=== PATIENT | female | born 1975 | race Caucasian/White ===

== ENCOUNTER 2017-01-20 21:17 | Emergency (ER) | payer BC ==
[2017-01-20 21:44] VITALS: BP 130/84; PULSE 108; RESP 20; TEMP 98.4
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
--- NOTE | 2017-01-20 23:33 | XR ---
EXAM: XR Left Hand Complete, 3 or More Views CLINICAL HISTORY: Reason: Pain TECHNIQUE: Frontal, lateral and oblique views of the left hand. COMPARISON: No relevant prior studies available. FINDINGS: Bones/joints: No acute fracture or malalignment. Soft tissues: Unremarkable. No radiopaque foreign body. IMPRESSION: No acute fracture or malalignment.
--- NOTE | 2017-01-20 23:34 | XR ---
EXAM: XR Left Wrist Complete, 3 or More Views CLINICAL HISTORY: Reason: Pain TECHNIQUE: Frontal, lateral and oblique views of the left wrist. COMPARISON: No relevant prior studies available. FINDINGS: Bones/joints: No acute fracture or malalignment. Soft tissues: Unremarkable. No radiopaque foreign body. IMPRESSION: No acute fracture or malalignment.
== END 2017-01-20 23:50 | disposition home or self-care (01) ==
LOC: EC 21:17
DX: S63.8X2A Sprain of other part of left wrist and hand, initial encounter (principal); J45.909 Unspecified asthma, uncomplicated; F17.200 Nicotine dependence, unspecified, uncomplicated; Z79.899 Other long term (current) drug therapy; Z79.51 Long term (current) use of inhaled steroids; W51.XXXA Accidental striking against or bumped into by another person, initial encounter
CPT/HCPCS: 99283

== ENCOUNTER 2018-10-10 22:42 | Emergency (ER) | payer BC ==
[2018-10-10 22:51] VITALS: RESP 18
[2018-10-10 23:49] LABS: Basophils # (A) 0.1 k/uL (0-0.2); Basophils % (A) 0 %; Eosinophils # (A) 0.4 k/uL (0-0.7); Eosinophils % (A) 3 %; HGB 17.9 gm/dL (11.4-16.0); Lymphocytes # (A) 2.3 k/uL (1.0-4.8); Lymphocytes % (A) 15 %; MCH 31.3 pg (25.0-35.0); MCHC 31.8 g/dL (31.0-37.0); MCV 98.4 fL (80.0-100.0); Mean Platelet Volume 6.9; Monocytes # (A) 0.8 k/uL (0-1.0); Monocytes % (A) 5 %; Neutrophils # (A) 11.3 k/uL (1.3-7.7); Neutrophils % (A) 76 %; Platelet Count 248 k/uL (150-450); RBC 5.71 m/uL (3.80-5.40); RDW 13.8 % (11.5-15.5); WBC 14.9 k/uL (3.8-10.6)
[2018-10-10 23:51] LABS: HCT 56.2 % (34.0-46.0)
--- NOTE | 2018-10-10 23:52 | ED ---
Chest Pain HPI - General Chief Complaint: Chest Pain Stated Complaint: Chest Pain, Numbness in Fingers Time Seen by Provider: 10/10/18 22:53 Source: patient, RN notes reviewed Mode of arrival: wheelchair Limitations: no limitations - History of Present Illness Initial Comments: This is a 43-year-old female with a history of asthma who states she has had episodes of left-sided chest pain it feels like a pinching sensation. This is been going on for about a week. It does come on it since about 3-410 severity. She states she cannot do anything to reproduce it no coughing sneezing bending stretching overhead work. He does state she is been having some difficulty with asthma recently she is a smoker about one pack a day she is trying to get off cigarettes. She has had some increased cough no phlegm production no fevers chills or sweats is reported. She currently is asymptomatic. Also of note the patient recently had a phlebotomy done for which she describes as having too much blood. This is been going tenderness occurred. MD Complaint: chest pain - Related Data Home Medications Medication Instructions Recorded Confirmed Albuterol Sulfate [Proair Hfa] 2 puff INHALATION RT-Q6H 10/10/18 10/10/18 Fluticasone/Vilanterol [Breo 1 puff INHALATION RT-DAILY 10/10/18 10/10/18 Ellipta 200-25 Mcg INH] cloNIDine HCL 0.45 mg PO HS 10/10/18 10/10/18 Allergies Allergy/AdvReac Type Severity Reaction Status Date / Time azithromycin Allergy Rash/Hives Verified 10/10/18 23:13 codeine Allergy Dyspnea Verified 10/10/18 23:13 Review of Systems ROS Statement: Those systems with pertinent positive or pertinent negative responses have been documented in the HPI. ROS Other: All systems not noted in ROS Statement are negative. EKG Findings - EKG Results: EKG: interpreted by [facility], sinus rhythm (Sinus tachycardia rate 108. Interval 144 QRS duration 82 QT since QTC 352/[address]-T wave changes are seen.) Past Medical History Past Medical History: Asthma, Blood Disorder Additional Past Medical History / Comment(s): TMJ, VARICOSE VEINS, CONSTIPATION History of Any Multi-Drug Resistant Organisms: None Reported Past Surgical History: Appendectomy, Cholecystectomy, Uterine Ablation Additional Past Surgical History / Comment(s): GOLDEN Past Anesthesia/Blood Transfusion Reactions: No Reported Reaction, Motion Sickness Additional Past Anesthesia/Blood Transfusion Reaction / Comment(s): HAS TMJ Past Psychological History: Anxiety, Depression Smoking Status: Current every day smoker Past Alcohol Use History: None Reported Past Drug Use History: None Reported - Past Family History Mother Family Medical History: Pulmonary Embolus General Exam - General Exam Comments Initial Comments: This is a well-developed well-nourished awake alert oriented 3 female Limitations: no limitations General appearance: alert Head exam: Present: atraumatic, normocephalic, normal inspection Eye exam: Present: normal appearance, PERRL, EOMI. Absent: scleral icterus, conjunctival injection, periorbital swelling ENT exam: Present: normal exam, mucous membranes moist Neck exam: Present: normal inspection, full ROM, other (No stridor JVD or bruit s.). Absent: tenderness, meningismus, lymphadenopathy Respiratory exam: Present: normal lung sounds bilaterally, chest wall tenderness (Reproducible tenderness palpation along the left upper costal chondral margin no step-off or crepitation.). Absent: respiratory distress, wheezes, rales, rhonchi, stridor Cardiovascular Exam: Present: regular rate, normal rhythm, normal heart sounds. Absent: systolic murmur, diastolic murmur, rubs, gallop, clicks GI/Abdominal exam: Present: soft, normal bowel sounds. Absent: distended, tenderness, guarding, rebound, rigid Extremities exam: Present: normal inspection, full ROM, normal capillary refill. Absent: tenderness, pedal edema, joint swelling, calf tenderness Back exam: Present: normal inspection Neurological exam: Present: alert, oriented X3, CN II-XII intact Psychiatric exam: Present: normal affect, normal mood Skin exam: Present: warm, dry, intact, normal color. Absent: rash Course Vital Signs 10/10/18 22:48 Temperature 98.4 F Pulse Rate 116 H Respiratory 18 Rate Blood Pressure 134/85 O2 Sat by Pulse 97 Oximetry Procedures - Smoking Cessation Time Spent Discussing Smoking Cessation w/Patient (Minutes): 3 Patient Acknowledges Need for Cessation: Yes Chest Pain MDM - MDM I did review the imaging and report no acute findings. Patient is feeling improved after IV Toradol. We did a long discussion regarding the findings the presentation is consistent with costochondritis also there is evidence of dehydration with hemoconcentration and we did discuss increasing her oral fluid consumption. She will follow-up with her doctor next week for reevaluation of the hemoglobin level. Disposition Clinical Impression: Costalchondritis, Dehydration, Smoking Disposition: HOME SELF-CARE Condition: Good Instructions (If sedation given, give patient instructions): Costochondritis (ED), How to Stop Smoking (ED) Additional Instructions: Increase oral fluid consumption and use [id number] Advil or Aleve as we discussed for pain. Is patient prescribed a controlled substance at d/c from ED?: No Referrals: Gifty Lomeli DO [Primary Care Provider] - 1-2 days
[2018-10-10 23:59] LABS: ALT 27 U/L (9-52); AST 20 U/L (14-36); Albumin 3.8 g/dL (3.5-5.0); Alkaline Phosphatase 71 U/L (38-126); Anion Gap 7 mmol/L; Blood Urea Nitrogen 18 mg/dL (7-17); Calcium 9.1 mg/dL (8.4-10.2); Carbon Dioxide 29 mmol/L (22-30); Chloride 104 mmol/L (98-107); Glucose 109 mg/dL (74-99); Magnesium 1.9 mg/dL (1.6-2.3); Potassium 4.4 mmol/L (3.5-5.1); Sodium 140 mmol/L (137-145); Total Bilirubin 0.4 mg/dL (0.2-1.3); Total Protein 7.1 g/dL (6.3-8.2)
--- NOTE | 2018-10-11 00:04 | XR ---
EXAM: XR Chest, 2 Views CLINICAL HISTORY: ITS.REASON XR Reason: Chest Pain TECHNIQUE: Frontal and lateral views of the chest. COMPARISON: No relevant prior studies available. FINDINGS: Lungs: No consolidation or mass. Pleural space: No effusion. Heart: No cardiomegaly. Mediastinum: Unremarkable. Bones/joints: No acute findings. IMPRESSION: No acute cardiopulmonary process.
[2018-10-11 00:06] LABS: D-Dimer 0.47 mg/L FEU (<0.60); Partial Thromboplastin Time 27.8 sec (22.0-30.0); Prothrombin Time 10.5 sec (9.0-12.0)
[2018-10-11] MEDS ORDERED: KETOROLAC 30 MG/ML 1 ML VIAL IVP STA (00:38)
[2018-10-11 01:21] VITALS: BP 138/80; PULSE 102; TEMP 98
== END 2018-10-11 01:21 | disposition home or self-care (01) ==
LOC: EC 22:42
DX: M94.0 Chondrocostal junction syndrome [Tietze] (principal); E86.0 Dehydration; R05 Cough; R20.0 Anesthesia of skin; J45.909 Unspecified asthma, uncomplicated; F17.210 Nicotine dependence, cigarettes, uncomplicated; Z71.6 Tobacco abuse counseling; Z79.51 Long term (current) use of inhaled steroids; Z79.899 Other long term (current) drug therapy; Z88.1 Allergy status to other antibiotic agents; Z88.5 Allergy status to narcotic agent
CPT/HCPCS: 36415; 93005; 85379; 83880; 80053; 83735; 84484; 85025; 85610; 85730; 71046; 99285; 99406; 96374; J1885

== ENCOUNTER 2019-10-21 06:09 | Emergency (ER) | payer BC ==
[2019-10-21 06:16] VITALS: RESP 18
[2019-10-21] MEDS ORDERED: SODIUM CHLORIDE 0.9% 500 ML 500 ML IV STA (06:29)
--- NOTE | 2019-10-21 06:42 | ED ---
Chest Pain HPI - General Chief Complaint: Chest Pain Stated Complaint: flank pain Time Seen by Provider: 10/21/19 06:18 Source: patient, RN notes reviewed Mode of arrival: ambulatory Limitations: no limitations - History of Present Illness Initial Comments: This is a 44-year-old female presents emergency Department with chief complaint right-sided chest pain. Patient states it started the other day sudden onset of pain. She states she has pain with deep inspiration no shortness of breath. Patient states pain radiates from her right lateral rib cage to her right breast. Patient has no history of PE or DVT. Patient states that she was told her blood counts are usually very high and she comes in for routine blood draws to help with this. Patient states she has not done in a while. Patient denies any associated abdominal pain including nausea, vomiting, constipation, diarrhea or dysuria. Patient's had no leg pain or leg swelling. She does admit that she traveled in August and also had associated illness at that time. - Related Data Home Medications Medication Instructions Recorded Confirmed Albuterol Sulfate [Proair Hfa] 2 puff INHALATION RT-Q6H 10/10/18 10/21/19 Fluticasone/Vilanterol [Breo 1 puff INHALATION RT-DAILY 10/10/18 10/21/19 Ellipta 200-25 Mcg INH] cloNIDine HCL 0.45 mg PO HS 10/10/18 10/21/19 Previous Rx's Medication Instructions Recorded Levofloxacin [Levaquin] 500 mg PO DAILY #10 tab 10/21/19 Allergies Allergy/AdvReac Type Severity Reaction Status Date / Time azithromycin Allergy Rash/Hives Verified 10/21/19 06:16 codeine Allergy Dyspnea Verified 10/21/19 06:16 Review of Systems ROS Statement: Those systems with pertinent positive or pertinent negative responses have been documented in the HPI. ROS Other: All systems not noted in ROS Statement are negative. EKG Findings - EKG Comments: EKG Findings:: EKG performed at 6:31 sinus tachycardia rate of 112. 138 QRS 86 QT/QTC 3:30/455 Past Medical History Past Medical History: Asthma, Blood Disorder Additional Past Medical History / Comment(s): TMJ, VARICOSE VEINS, CONSTIPATION History of Any Multi-Drug Resistant Organisms: None Reported Past Surgical History: Appendectomy, Cholecystectomy, Uterine Ablation Additional Past Surgical History / Comment(s): NOVASURE Past Anesthesia/Blood Transfusion Reactions: No Reported Reaction, Motion Sickness Additional Past Anesthesia/Blood Transfusion Reaction / Comment(s): HAS TMJ Past Psychological History: No Psychological Hx Reported Smoking Status: Current every day smoker Past Alcohol Use History: None Reported Past Drug Use History: None Reported - Past Family History Mother Family Medical History: Pulmonary Embolus General Exam Limitations: no limitations, physical limitation General appearance: alert, in no apparent distress Head exam: Present: atraumatic, normocephalic, normal inspection Eye exam: Present: normal appearance, PERRL, EOMI. Absent: scleral icterus, conjunctival injection, periorbital swelling ENT exam: Present: normal exam, normal oropharynx, mucous membranes moist Neck exam: Present: normal inspection, full ROM. Absent: tenderness, meningismus, lymphadenopathy Respiratory exam: Present: normal lung sounds bilaterally. Absent: respiratory distress, wheezes, rales, rhonchi, stridor, chest wall tenderness Cardiovascular Exam: Present: normal rhythm, tachycardia, normal heart sounds. Absent: systolic murmur, diastolic murmur, rubs, gallop, clicks GI/Abdominal exam: Present: soft, normal bowel sounds. Absent: distended, tend erness, guarding, rebound, rigid Neurological exam: Present: alert, oriented X3, CN II-XII intact Skin exam: Present: warm, dry, intact, normal color. Absent: rash Course Vital Signs 10/21/19 10/21/19 10/21/19 06:10 07:37 08:39 Temperature 98.5 F 98.3 F Pulse Rate 120 H 106 H 108 H Respiratory 18 18 18 Rate Blood Pressure 130/92 126/93 127/86 O2 Sat by Pulse 94 L 94 L 94 L Oximetry Chest Pain MDM - [facility] Patient lab work was reviewed which showed elevated WBC, HGB and HCT consistent with her known underlying disorder. Patient CT shows no evidence of PE though there is evidence of pleural effusion, infiltrate posterior antibiotics. Patient will have follow-up with her PCP. Return parameters were discussed. Disposition Clinical Impression: Pleurisy, Pneumonia Disposition: HOME SELF-CARE Condition: Stable Instructions (If sedation given, give patient instructions): Pneumonia (ED) Additional Instructions: Please return to the Emergency Department if symptoms worsen or any other concerns. Prescriptions: Levofloxacin [Levaquin] 500 mg PO DAILY #10 tab Is patient prescribed a controlled substance at d/c from ED?: No Referrals: Gifty Lomeli DO [Primary Care Provider] - 1-2 days Time of Disposition: 08:42
[2019-10-21 07:28] LABS: ALT 22 U/L (4-34); AST 22 U/L (14-36); African American GFR (CKD) >90 (>60 ml/min/1.73 sqM); Albumin 3.8 g/dL (3.5-5.0); Alkaline Phosphatase 65 U/L (38-126); Anion Gap 8 mmol/L; Blood Urea Nitrogen 18 mg/dL (7-17); Calcium 8.7 mg/dL (8.4-10.2); Carbon Dioxide 25 mmol/L (22-30); Chloride 105 mmol/L (98-107); Glucose 113 mg/dL (74-99); Magnesium 2.1 mg/dL (1.6-2.3); Non-African American GFR(CKD) >90 (>60 ml/min/1.73 sqM); Potassium 4.5 mmol/L (3.5-5.1); Sodium 138 mmol/L (137-145); Total Bilirubin 0.4 mg/dL (0.2-1.3); Total Protein 7.3 g/dL (6.3-8.2)
[2019-10-21 07:35] LABS: Basophils # (A) 0.1 k/uL (0-0.2); Basophils % (A) 0 %; Eosinophils # (A) 0.8 k/uL (0-0.7); Eosinophils % (A) 5 %; HGB 18.3 gm/dL (11.4-16.0); Lymphocytes # (A) 1.9 k/uL (1.0-4.8); Lymphocytes % (A) 12 %; MCH 31.7 pg (25.0-35.0); MCHC 32.4 g/dL (31.0-37.0); MCV 97.8 fL (80.0-100.0); Mean Platelet Volume 8.3; Monocytes % (A) 6 %; Neutrophils # (A) 11.7 k/uL (1.3-7.7); Neutrophils % (A) 74 %; Platelet Count 288 k/uL (150-450); RBC 5.78 m/uL (3.80-5.40); RDW 13.6 % (11.5-15.5); WBC 15.9 k/uL (3.8-10.6)
[2019-10-21 07:36] LABS: HCT 56.5 % (34.0-46.0)
[2019-10-21 07:37] VITALS: TEMP 98.3
--- NOTE | 2019-10-21 08:28 | XR ---
EXAMINATION TYPE: XR chest 2V DATE OF EXAM: 10/21/2019 COMPARISON: 10/11/2018 HISTORY: 44-year-old female with chest pain TECHNIQUE: PA and lateral views FINDINGS: Heart upper limits of normal in size. Trace right pleural effusion with right basilar opacity particu larly on the lateral view. Upper and mid lungs appear relatively clear. IMPRESSION: Small right pleural effusion with adjacent atelectasis and/or consolidation. Correlate to exclude mil d CHF as an etiology.
--- NOTE | 2019-10-21 08:28 | CT ---
EXAMINATION TYPE: CT chest angio for PE DATE OF EXAM: 10/21/2019 COMPARISON: Radiograph same day HISTORY: 44-year-old female Chest pain TECHNIQUE: Contiguous axial scanning of the chest performed with IV Contrast, patient injected with 1 00 mL of Isovue 370. Coronal/sagittal MIP reconstructions performed. CT DLP: 852.5 mGycm Automated exposure control for dose reduction was used. FINDINGS: The heart is normal size with trace anterior pericardial fluid. No flattening of the interventricular septum reflux of contrast into the hepatic veins. Aorta normal caliber with conventional arch vessel branching anatomy. Mildly enlarged right tracheobronchial angle lymph node at 1.2 cm. Additional scattered nonenlarged lymph nodes are present in the mediastinum. Borderline sized 1.0 cm and the right hilum. Borderline sized 6 mm right retrocrural lymph node. Suboptimal opacification of the pulmonary arterial system but without any definite pulmonary embolus. Mild diffuse bronchial wall thickening. There is a small right pleural effusion remain right basilar atelectasis and focal opacity. Visualized upper abdomen shows no gross abnormality. Bones: Mild anterior endplate spondylosis mid to lower thoracic spine. IMPRESSION: 1. SLIGHTLY SUBOPTIMAL OPACIFICATION OF THE PULMONARY ARTERIAL SYSTEM BUT WITHOUT EVIDENCE FOR PULMON KRISTA EMBOLUS. 2. SMALL RIGHT PLEURAL EFFUSION WITH ADJACENT ATELECTASIS AND/OR INFILTRATE. CORRELATE CLINICALLY TO EXCLUDE UNDERLYING PNEUMONIA HERE. 3. MILD DIFFUSE BRONCHIAL WALL THICKENING, POSSIBLE BRONCHITIS OR ASTHMA. CORRELATE TO EXCLUDE MILD F LUID OVERLOAD STATE. 4. SCATTERED BORDERLINE SIZED AND MILDLY ENLARGED MEDIASTINAL AND RIGHT HILAR LYMPH NODES, LIKELY CHAD CTIVE. [address] MONTH FOLLOW-UP CT CHEST RECOMMENDED TO REASSESS.
[2019-10-21 08:40] VITALS: BP 127/86; PULSE 108
[2019-10-21] MEDS ORDERED: cefTRIAXone IN SWFI 1,000 MG/10 ML SYRINGE IVP STA (08:42)
[2019-10-21 09:05] LABS: Partial Thromboplastin Time 25.6 sec (22.0-30.0); Prothrombin Time 10.3 sec (9.0-12.0)
[2019-10-21 09:07] LABS: D-Dimer 4.83 mg/L FEU (<0.60)
== END 2019-10-21 09:08 | disposition home or self-care (01) ==
LOC: EC 06:09
DX: J18.9 Pneumonia, unspecified organism (principal); R09.1 Pleurisy; J45.909 Unspecified asthma, uncomplicated; F17.200 Nicotine dependence, unspecified, uncomplicated; Z79.899 Other long term (current) drug therapy; Z79.51 Long term (current) use of inhaled steroids; Z88.1 Allergy status to other antibiotic agents; Z88.5 Allergy status to narcotic agent
CPT/HCPCS: 36415; 93005; 85379; 83880; 80053; 83690; 83735; 84484; 85025; 85610; 85730; 71046; 71275; 99285; 96374; 96361; J0696; Q9967

== ENCOUNTER 2019-12-29 04:34 | Inpatient (IN) | payer BC ==
--- NOTE | 2019-12-29 05:03 | ED ---
SOB HPI - General Source: patient Mode of arrival: wheelchair Limitations: no limitations - History of Present Illness MD Complaint: shortness of breath -: days(s) Severity scale (1-10): 0 Consistency: constant Improves With: nothing Worsens With: nothing Context: recent URI Associated Symptoms: lower abdominal swelling Treatments Prior to Arrival: none <Stuart Yip - Last Filed: 12/29/19 07:09> <Edwin Orozco - Last Filed: 12/29/19 08:58> - General Chief Complaint: Shortness of Breath Stated Complaint: SOB, Swelling in feet Time Seen by Provider: 12/29/19 04:53 - History of Present Illness Initial Comments: This patient is 44-year-old woman presenting to have evaluation for shortness of breath and bilateral lower extremity edema. The patient states that this had s tarted a little over 2 months ago. She had been seen here at that time as she was having some right-sided pleuritic chest pain. The patient had been evaluated and there was concern that she may have had covid infection. Patient states she had performed self isolation, and subsequently informed that her test result was negative. Patient states that the lower extremity swelling never really resolved and that the shortness of breath has continued. She is not having fever or chills. No cough. No change in urination or bowel movements. (Stuart Yip) - Related Data Home Medications Medication Instructions Recorded Confirmed Albuterol Sulfate [Proair Hfa] 2 puff INHALATION RT-Q6H 10/10/18 12/29/19 Fluticasone/Vilanterol [Breo 1 puff INHALATION RT-DAILY 10/10/18 12/29/19 Ellipta 200-25 Mcg INH] cloNIDine HCL 0.6 mg PO HS 10/10/18 12/29/19 Albuterol Nebulized [Ventolin 2.5 mg INHALATION RT-Q6H PRN 12/29/19 12/29/19 Nebulized] Allergies Allergy/AdvReac Type Severity Reaction Status Date / Time azithromycin Allergy Rash/Hives Verified 12/29/19 08:08 codeine Allergy Dyspnea Verified 12/29/19 08:08 Review of Systems ROS Other: All systems not noted in ROS Statement are negative. Constitutional: Denies: fever, chills Respiratory: Reports: dyspnea. Denies: cough, wheezes, hemoptysis Cardiovascular: Reports: edema. Denies: chest pain, palpitations, orthopnea, syncope Gastrointestinal: Denies: abdominal pain, nausea, vomiting, melena, hematochezia Musculoskeletal: Denies: back pain Skin: Denies: rash Neurological: Denies: headache, weakness, numbness <Stuart Yip - Last Filed: 12/29/19 07:09> ROS Other: All systems not noted in ROS Statement are negative. <Edwin Orozco - Last Filed: 12/29/19 08:58> ROS Statement: Those systems with pertinent positive or pertinent negative responses have been documented in the HPI. Past Medical History Past Medical History: Asthma, Blood Disorder Additional Past Medical History / Comment(s): TMJ, VARICOSE VEINS, CONSTIPATION History of Any Multi-Drug Resistant Organisms: None Reported Past Surgical History: Appendectomy, Cholecystectomy, Uterine Ablation Additional Past Surgical History / Comment(s): NOVASURE Past Anesthesia/Blood Transfusion Reactions: No Reported Reaction, Motion Sickness Additional Past Anesthesia/Blood Transfusion Reaction / Comment(s): HAS TMJ Past Psychological History: No Psychological Hx Reported Smoking Status: Current every day smoker Past Alcohol Use History: None Reported Past Drug Use History: None Reported - Past Family History Mother Family Medical History: Pulmonary Embolus <Stuart Yip - Last Filed: 12/29/19 07:09> General Exam Limitations: no limitations General appearance: alert, in no apparent distress Head exam: Present: atraumatic, normocephalic Eye exam: Present: normal appearance. Absent: scleral icterus, conjunctival injection Neck exam: Present: normal inspection Respiratory exam: Present: normal lung sounds bilaterally. Absent: respiratory distress, wheezes, rales, rhonchi, stridor Cardiovascular Exam: Present: normal rhythm, tachycardia, normal heart sounds. Absent: systolic murmur, diastolic murmur, rubs, gallop GI/Abdominal exam: Present: soft. Absent: distended, tenderness, guarding, rebound, rigid, mass Extremities exam: Present: normal inspection, normal capillary refill, pedal edema. Absent: calf tenderness Back exam: Present: normal inspection. Absent: CVA tenderness (R), CVA tenderness (L) Neurological exam: Present: alert Skin exam: Present: warm, dry, intact, normal color. Absent: rash <Stuart Yip - Last Filed: 12/29/19 07:09> Course Vital Signs 12/29/19 12/29/19 12/29/19 04:41 04:56 05:01 Temperature 98.8 F Pulse Rate 116 H Respiratory 22 Rate Blood Pressure 131/73 O2 Sat by Pulse 88 L 91 L 94 L Oximetry 12/29/19 12/29/19 07:03 07:44 Temperature Pulse Rate 96 Respiratory 16 Rate Blood Pressure 134/99 140/96 O2 Sat by Pulse 96 Oximetry Medical Decision Making - Lab Data Result diagrams: 12/29/19 05:10 12/29/19 05:10 - EKG Data -: EKG Interpreted by Nd EKG shows normal: sinus rhythm, axis (Normal), intervals (Normal), QRS complexes (Normal), ST-T waves (Normal) Rate: tachycardia (Rate 112 bpm) <Stuart Yip - Last Filed: 12/29/19 07:09> - Lab Data Result diagrams: 12/29/19 05:10 12/29/19 05:10 - Radiology Data Radiology results: image reviewed (Two-view chest x-ray shows right-sided effusion. No infiltrate/atelectasis. CT angios chest shows no pulmonary embolism. Stable [id number] right pleural effusion with atelectasis. trace pulmonary edema.) <Edwin Orozco - Last Filed: 12/29/19 08:58> - Medical Decision Making Patient reevaluated by myself, Dr. Orozco. Patient resting comfortably in bed. Patient updated on results and plan. Case was discussed in detail with Dr. Bello, who will admit covered for Dr. Lomeli. He does agree with pulmonary consult. (Edwin Orozco) - Lab Data Lab Results 12/29/19 12/29/19 12/29/19 Range/Units 05:10 05:10 05:10 WBC 14.4 H (3.8-10.6) k/uL RBC 5.10 (3.80-5.40) m/uL Hgb 16.3 H (11.4-16.0) gm/dL Hct 50.5 H (34.0-46.0) % MCV 98.9 (80.0-100.0) fL MCH 31.9 (25.0-35.0) pg MCHC 32.3 (31.0-37.0) g/dL RDW 14.7 (11.5-15.5) % Plt Count 206 (150-450) k/uL Neutrophils % 82 % Lymphocytes % 9 % Monocytes % 6 % Eosinophils % 2 % Basophils % 0 % Neutrophils # 11.7 H (1.3-7.7) k/uL Lymphocytes # 1.3 (1.0-4.8) k/uL Monocytes # 0.8 (0-1.0) k/uL Eosinophils # 0.3 (0-0.7) k/uL Basophils # 0.1 (0-0.2) k/uL Hypochromasia Moderate PT 11.3 (9.0-12.0) sec INR 1.1 (<1.2) APTT 27.4 (22.0-30.0) sec D-Dimer 1.41 H (<0.60) mg/L FEU Sodium 138 (137-145) mmol/L Potassium 4.2 (3.5-5.1) mmol/L Chloride 102 (98-107) mmol/L Carbon Dioxide 29 (22-30) mmol/L Anion Gap 7 mmol/L BUN 14 (7-17) mg/dL Creatinine 0.63 (0.52-1.04) mg/dL Est GFR (CKD-EPI)AfAm >90 (>60 ml/min/1.73 sqM) Est GFR (CKD-EPI)NonAf >90 (>60 ml/min/1.73 sqM) Glucose 145 H (74-99) mg/dL Calcium 8.7 (8.4-10.2) mg/dL Total Bilirubin 0.7 (0.2-1.3) mg/dL AST 27 (14-36) U/L ALT 19 (4-34) U/L Alkaline Phosphatase 60 (38-126) U/L Troponin I (0.000-0.034) ng/mL NT-Pro-B Natriuret Pep pg/mL Total Protein 7.2 (6.3-8.2) g/dL Albumin 3.8 (3.5-5.0) g/dL 12/29/19 12/29/19 Range/Units 05:10 06:14 WBC (3.8-10.6) k/uL RBC (3.80-5.40) m/uL Hgb (11.4-16.0) gm/dL Hct (34.0-46.0) % MCV (80.0-100.0) fL MCH (25.0-35.0) pg MCHC (31.0-37.0) g/dL RDW (11.5-15.5) % Plt Count (150-450) k/uL Neutrophils % % Lymphocytes % % Monocytes % % Eosinophils % % Basophils % % Neutrophils # (1.3-7.7) k/uL Lymphocytes # (1.0-4.8) k/uL Monocytes # (0-1.0) k/uL Eosinophils # (0-0.7) k/uL Basophils # (0-0.2) k/uL Hypochromasia PT (9.0-12.0) sec INR (<1.2) APTT (22.0-30.0) sec D-Dimer (<0.60) mg/L FEU Sodium (137-145) mmol/L Potassium (3.5-5.1) mmol/L Chloride (98-107) mmol/L Carbon Dioxide (22-30) mmol/L Anion Gap mmol/L BUN (7-17) mg/dL Creatinine (0.52-1.04) mg/dL Est GFR (CKD-EPI)AfAm (>60 ml/min/1.73 sqM) Est GFR (CKD-EPI)NonAf (>60 ml/min/1.73 sqM) Glucose (74-99) mg/dL Calcium (8.4-10.2) mg/dL Total Bilirubin (0.2-1.3) mg/dL AST (14-36) U/L ALT (4-34) U/L Alkaline Phosphatase (38-126) U/L Troponin I <0.012 (0.000-0.034) ng/mL NT-Pro-B Natriuret Pep 151 pg/mL Total Protein (6.3-8.2) g/dL Albumin (3.5-5.0) g/dL Disposition <Stuart Yip - Last Filed: 12/29/19 07:09> Is patient prescribed a controlled substance at d/c from ED?: No Decision Time: 08:58 <Edwin Orozco - Last Filed: 12/29/19 08:58> Clinical Impression: Pleural effusion, Dyspnea Disposition: ADMITTED IP TO THIS HOSP Referrals: Gifty Lomeli DO [Primary Care Provider] - 1-2 days
--- NOTE | 2019-12-29 05:28 | XR ---
EXAMINATION TYPE: XR chest 2V DATE OF EXAM: 12/29/2019 COMPARISON: 10/21/2019 HISTORY: Chest pain TECHNIQUE: FINDINGS: There is blunting right costophrenic angle. Heart size is normal. There is no gross heart f ailure. There is some mild infiltrate and atelectasis right lung base. There are chest leads. IMPRESSION: There is increasing right pleural effusion and right lower lobe infiltrate and atelectasi s compared to last exam. No gross heart failure.
[2019-12-29 05:32] LABS: ALT 19 U/L (4-34); AST 27 U/L (14-36); African American GFR (CKD) >90 (>60 ml/min/1.73 sqM); Albumin 3.8 g/dL (3.5-5.0); Alkaline Phosphatase 60 U/L (38-126); Anion Gap 7 mmol/L; Blood Urea Nitrogen 14 mg/dL (7-17); Calcium 8.7 mg/dL (8.4-10.2); Carbon Dioxide 29 mmol/L (22-30); Chloride 102 mmol/L (98-107); Glucose 145 mg/dL (74-99); Non-African American GFR(CKD) >90 (>60 ml/min/1.73 sqM); Sodium 138 mmol/L (137-145); Total Bilirubin 0.7 mg/dL (0.2-1.3); Total Protein 7.2 g/dL (6.3-8.2)
[2019-12-29 05:34] LABS: Potassium 4.2 mmol/L (3.5-5.1)
[2019-12-29 05:44] LABS: Basophils # (A) 0.1 k/uL (0-0.2); Basophils % (A) 0 %; Eosinophils # (A) 0.3 k/uL (0-0.7); Eosinophils % (A) 2 %; HCT 50.5 % (34.0-46.0); HGB 16.3 gm/dL (11.4-16.0); Hypochromasia Moderate; Lymphocytes # (A) 1.3 k/uL (1.0-4.8); Lymphocytes % (A) 9 %; MCH 31.9 pg (25.0-35.0); MCHC 32.3 g/dL (31.0-37.0); MCV 98.9 fL (80.0-100.0); Mean Platelet Volume 11.3; Monocytes # (A) 0.8 k/uL (0-1.0); Monocytes % (A) 6 %; Neutrophils # (A) 11.7 k/uL (1.3-7.7); Neutrophils % (A) 82 %; Platelet Count 206 k/uL (150-450); RDW 14.7 % (11.5-15.5); WBC 14.4 k/uL (3.8-10.6)
[2019-12-29 05:51] LABS: INR 1.1 (<1.2); Partial Thromboplastin Time 27.4 sec (22.0-30.0); Prothrombin Time 11.3 sec (9.0-12.0)
[2019-12-29 06:12] LABS: D-Dimer 1.41 mg/L FEU (<0.60)
--- NOTE | 2019-12-29 08:28 | CT ---
EXAM: CT Angiography Chest With Intravenous Contrast CLINICAL HISTORY: Dyspnea TECHNIQUE: Axial computed tomographic angiography images of the chest with intravenous contrast. CTDI is 24.2 mGy and DLP is 1016 mGy-cm. This CT exam was performed using one or more of the following dose reduction techniques: automated exposure control, adjustment of the mA and/or kV according to patient size, and/or use of iterative reconstruction technique. MIP reconstructed images were created and reviewed. COMPARISON: 10/21/19 FINDINGS: Pulmonary arteries: No pulmonary embolism. Aorta: No acute findings. No thoracic aortic aneurysm. Lungs: Mild atelectasis again seen in the right lower lobe. No definite airspace consolidation. There is minimal interstitial edema Pleural space: No evidence of pneumothorax. Again seen is a small to moderate-sized right pleural effusion, not significantly changed. Heart: Unremarkable. No cardiomegaly. No significant pericardial effusion. No evidence of RV dysfunction. Bones/joints: No acute fracture. No dislocation. Soft tissues: Unremarkable. Lymph nodes: Unremarkable. No enlarged lymph nodes. IMPRESSION: No evidence of pulmonary embolism. Stable small to moderate size right pleural effusion with right basilar atelectasis. Trace pulmonary edema.
[2019-12-29] MEDS ORDERED: FUROSEMIDE 10 MG/ML 4 ML VIAL IV STA (08:58)
[2019-12-29] MEDS ORDERED: NALOXONE 0.4 MG/ML 1 ML VIAL IV PRN (08:59)
[2019-12-29] MEDS: SODIUM CHLORIDE 0.9% 1,000 ML IV SCH (09:28)
--- NOTE | 2019-12-29 11:43 | ECHOF ---
Referral Reason:dyspnea MEASUREMENTS -------- HEIGHT: 162.6 cm WEIGHT: 139.3 kg BP: 140/96 RVIDd: 3.2 cm (< 3.3) IVSd: 1.2 cm (0.6 - 1.1) LVIDd: 5.7 cm (3.9 - 5.3) LVPWd: 1.5 cm (0.6 - 1.1) IVSs: 1.5 cm LVIDs: 4.6 cm LVPWs: 1.6 cm Ao Diam: 3.0 cm (2.0 - 3.7) LA Diam: 2.4 cm (2.7 - 3.8) MV E Vijay: 0.83 m/s MV DecT: 177 ms MV A Vijay: 0.80 m/s MV E/A Ratio: 1.03 RAP: 5.00 mmHg RVSP: 7.51 mmHg FINDINGS -------- This was a technically difficult study with suboptimal views. The left ventricle is mildly dilated. There is mild concentric left ventricular hypertrophy. Over all left ventricular systolic function is mild-moderately impaired with, an EF between 40 - 45 %. The right ventricle is normal in size. The left atrial size is normal. The right atrium was not well visualized. The aortic valve was not well visualized. The mitral valve was not well visualized. There is trace mitral regurgitation. The tricuspid valve appears structurally normal. Trace tricuspid regurgitation present. Right galina tricular systolic pressure is normal at < 35 mmHg. The pulmonic valve was not well visualized. The aortic root size is normal. IVC Not well visulized. Lumason used CONCLUSIONS -------- 1. This was a technically difficult study with suboptimal views. 2. The left ventricle is mildly dilated. 3. There is mild concentric left ventricular hypertrophy. 4. The right ventricle is normal in size. 5. The left atrial size is normal. 6. The right atrium was not well visualized. 7. Lumason used 8. The aortic valve was not well visualized. 9. The mitral valve was not well visualized. 10. There is trace mitral regurgitation. 11. The tricuspid valve appears structurally normal. 12. Trace tricuspid regurgitation present. 13. Right ventricular systolic pressure is normal at < 35 mmHg. 14. The pulmonic valve was not well visualized. 15. The aortic root size is normal. 16. IVC Not well visulized. ICT SECURITY SPECIALIST: Elvira Mckeon RDCS
[2019-12-29] MEDS ORDERED: ALBUTEROL NEBULIZED 2.5 MG/3 ML INHALATION PRN ×2 (13:42→14:57)
[2019-12-29] MEDS ORDERED: PNEUMOCOCCAL VACC-PNEUMOVAX 23 25 MCG/0.5 ML VIAL IM ONE (14:08)
--- NOTE | 2019-12-29 15:07 | US ---
EXAMINATION TYPE: US chest DATE OF EXAM: 12/29/2019 COMPARISON: NONE CLINICAL HISTORY: Markings for thoracentesis by pulmonary staff. TECHNIQUE: Targeted ultrasound of the posterior lower EXAM MEASUREMENTS: Right Pleural Effusion pocket size: 10.4 cm Right skin surface to fluid distance: 5.6 cm Left Pleural Effusion pocket size: 3.0 cm with possible loculations Left skin surface to fluid distance: 6.3 cm Morbidly obese patient. Right side marked for possible thoracentesis outside the dept. Left side not marked for possible thoracentesis outside the dept. Pulmonologists are able to review the images in the patient?s EMR. IMPRESSIONS: Small to moderate right and trace left pleural effusion with possible left-sided loculat ions.
--- NOTE | 2019-12-29 15:11 | P.CNPUL ---
History of Present Illness Consult date: 12/29/19 Reason for consult: dyspnea Chief complaint: Shortness of breath, lower extremity swelling, weight gain History of present illness: 44-year-old female patient of Dr. Gifty Lomeli with past medical history of chronic bronchial asthma, current smoker, morbid obesity, hypertension, and possibility of polycythemia vera or hemochromatosis requiring therapeutic phlebotomy, who presented to the emergency department on 12/29/2019 for evaluation of increasing shortness of breath, and significant bilateral lower extremity edema that started a little over 2 months ago, patient also complains of abdominal wall edema. Patient did come into the emergency department on 10/21/2019 with right-sided chest pain that was worsened with deep inspiration and no associated shortness of breath. CTA chest was obtained at that time showing no evidence of pulmonary embolism but did show small right pleural effusion with adjacent atelectasis and/or infiltrate, and mild diffuse bronchial wall thickening possible bronchitis, and scattered borderline sized and mildly enlarged mediastinal and right hilar lymph nodes, were likely reactive. Patient was diagnosed with pneumonia with pleurisy, was discharged home on oral Levaquin. Today's chest x-ray shows increasing right pleural effusion and right lower lobe infiltrate and atelectasis compared to last exam. CTA chest showed no evidence of pulmonary embolism, and stable small to moderate size right pleural effusion with right basilar atelectasis. EKG showed sinus tachycardia with a rate of 112 BPM. Patient was hypoxemic on presentation with pulse ox of 88% on room air, placed on supplemental oxygen, currently at 2 L with a pulse ox of 97%, blood pressure is 131/73, afebrile. Patient was given a dose of IV Lasix in the emergency department, echocardiogram was completed, showing [id number] impairment of the left ventricular systolic function and EF of 40-45%. Aortic and mitral valves were not well visualized, and there was trace mitral regurgitation, and right ventricular systolic pressure was less than 35 mmHg, IVC not well visualized. Lab work showed white blood cell count of 14.4, hemoglobin of 16.3, hematocrit of 50.5, d-dimer was 1.41, electro lites and renal profile were within normal limits, troponin was less than 0.012, LFTs were within normal limits, proBNP was 151. We were asked to see the patient in regards to bilateral pleural effusions. In addition patient has significant edema involving lower extremities and abdominal wall Review of Systems All systems: negative Constitutional: Denies chills, Denies fever Eyes: denies blurred vision, denies pain Ears, nose, mouth and throat: Denies headache, Denies sore throat Cardiovascular: Reports dyspnea on exertion, Reports leg edema, Denies chest pain, Denies shortness of breath Respiratory: Reports dyspnea, Denies cough Gastrointestinal: Denies abdominal pain, Denies diarrhea, Denies nausea, Denies vomiting Genitourinary: Denies dysuria, Denies hematuria Musculoskeletal: Denies myalgias Integumentary: Denies pruritus, Denies rash Neurological: Denies numbness, Denies weakness Psychiatric: Denies anxiety, Denies depression Endocrine: Reports weight change, Denies fatigue Past Medical History Past Medical History: Asthma, Blood Disorder, Pneumonia, Vascular Disorder Additional Past Medical History / Comment(s): 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 History of Any Multi-Drug Resistant Organisms: None Reported Past Surgical History: Appendectomy, Cholecystectomy, Hysterectomy, Uterine Ablation Additional Past Surgical History / Comment(s): NOVASURE Past Anesthesia/Blood Transfusion Reactions: Motion Sickness Additional Past Anesthesia/Blood Transfusion Reaction / Comment(s): HAS TMJ Smoking Status: Current every day smoker - Past Family History Mother Family Medical History: Pulmonary Embolus Additional Family Medical History / Comment(s): Mother of a PE at the age of 63 yrs. Father Family Medical History: Hypertension, Respiratory Disorder Additional Family Medical History / Comment(s): Father is an alcoholic. He had asbestos exposure/lungs affected. Medications and Allergies Home Medications Medication Instructions Recorded Confirmed Type Albuterol Sulfate [Proair Hfa] 2 puff INHALATION RT-Q6H 10/10/18 12/29/19 History Fluticasone/Vilanterol [Breo 1 puff INHALATION RT-DAILY 10/10/18 12/29/19 History Ellipta 200-25 Mcg INH] cloNIDine HCL 0.6 mg PO HS 10/10/18 12/29/19 History Albuterol Nebulized [Ventolin 2.5 mg INHALATION RT-Q6H PRN 12/29/19 12/29/19 History Nebulized] Allergies Allergy/AdvReac Type Severity Reaction Status Date / Time azithromycin Allergy Rash/Hives Verified 12/29/19 08:08 codeine Allergy Dyspnea Verified 12/29/19 08:08 Physical Exam Vitals: Vital Signs Temp Pulse Resp BP Pulse Ox 12/29/19 09:32 92 16 135/93 97 12/29/19 07:44 96 16 140/96 96 12/29/19 07:03 134/99 12/29/19 05:01 94 L 12/29/19 04:56 91 L 12/29/19 04:41 98.8 F 116 H 22 131/73 88 L Intake and Output 12/28/19 12/29/19 12/29/19 22:59 06:59 14:59 Other: Voiding Method Toilet Weight 139.253 kg 139.253 kg GENERAL EXAM: Alert, very pleasant, morbidly obese 44-year-old white female on 2 L of oxygen with pulse ox of 97% comfortable in no apparent distress. HEAD: Normocephalic/atraumatic. EYES: Normal reaction of pupils, equal size. Conjunctiva pink, sclera white. NOSE: Clear with pink turbinates. THROAT: No erythema or exudates. NECK: No masses, no JVD, no thyroid enlargement, no adenopathy. CHEST: No chest wall deformity. Symmetrical expansion. LUNGS: Equal air entry with diminished breath sounds at the bases, scattered wheezing CVS: Regular rate and rhythm, normal S1 and S2, no gallops, no murmurs, no rubs ABDOMEN: Soft, nontender. No hepatosplenomegaly, normal bowel sounds, no guarding or rigidity. EXTREMITIES: No clubbing, edema involving abdominal wall, and bilateral lower extremities, nonpitting, no cyanosis, 2+ pulses and upper and lower extremities. MUSCULOSKELETAL: Muscle strength and tone normal. SPINE: No scoliosis or deformity SKIN: No rashes CENTRAL NERVOUS SYSTEM: Alert and oriented -3. No focal deficits, tone is normal in all 4 extremities. PSYCHIATRIC: Alert and oriented -3. Appropriate affect. Intact judgment and insight. Results - Laboratory Findings CBC and BMP: 12/29/19 05:10 12/29/19 05:10 PT/INR, D-dimer PT 11.3 sec (9.0-12.0) 12/29/19 05:10 INR 1.1 (<1.2) 12/29/19 05:10 D-Dimer 1.41 mg/L FEU (<0.60) H 12/29/19 05:10 Abnormal lab findings: Abnormal Labs 12/29/19 12/29/19 12/29/19 05:10 05:10 05:10 WBC 14.4 H Hgb 16.3 H Hct 50.5 H Neutrophils # 11.7 H D-Dimer 1.41 H Glucose 145 H - Diagnostic Findings Chest x-ray: report reviewed, image reviewed CT scan - chest: report reviewed, image reviewed Additional studies: EKG reviewed Assessment and Plan Plan: Assessment: #1. Dyspnea, related to fluid volume overload, significant lower extremity edema and abdominal wall edema and bilateral pleural effusions, #2. Acute hypoxic respiratory failure related to bilateral pleural effusions #3. Cardiomyopathy, echocardiogram showed mild to moderate impairment of the LV function with EF of 40-45% #4. Possible history of polycythemia vera or hemochromatosis, requiring therapeutic phlebotomy every 2-3 months #5. History of chronic bronchial asthma, unspecified, and a component of COPD, the severity of which is not known at this time #6. Hypertension #7. Current every day smoker, smoked a pack and a half a day for 17 years #8. History of large rectocele and uterine prolapse, status post hysterectomy #9. Morbid obesity #10. Mildly elevated d-dimer, with CTA chest negative for pulmonary embolism Plan: Ultrasound of the chest has been ordered, and reviewed, showing bilateral pleural effusions, in addition patient has significant generalized edema involving abdominal wall, and lower extremities, and she needs systemic diuretic s. Currently denies any pleuritic chest pain, no fever or chills. She has been given a dose of IV diuretics, and she is responding well, we'll obtain follow-up chest x-ray in the morning, follow-up BMP. Accurate intake and output, daily weights. Echocardiogram results have been noted. Smoking cessation has been advised, will restart Symbicort and albuterol, COVID19 is pending, although suspicion for is low. We'll continue with medical treatment at this time, no plans for thoracentesis, we'll continue to follow I performed a history & physical examination of the patient and discussed their management with my nurse practitioner, Helga Lara. I reviewed the nurse practitioner's note and agree with the documented findings and plan of care. Lung sounds are positive for scattered wheezes. The findings and the impression was discussed with the patient. I attest to the documentation by the nurse practitioner. Time with Patient: Greater than 30
[2019-12-29] MEDS: ALBUTEROL NEBULIZED 2.5 MG/3 ML INHALATION SCH ×2 (15:39→19:32)
--- NOTE | 2019-12-29 16:12 | XR ---
EXAMINATION TYPE: XR chest 1V portable DATE OF EXAM: 12/29/2019 COMPARISON: 12/29/2019 HISTORY: Shortness of breath and fluid retention. Congestive heart failure. TECHNIQUE: Single frontal view of the chest is obtained. FINDINGS: Similar small right pleural effusion with right basilar airspace disease in comparison to the prior. Minimal pulmonary vascular congestion. Enlarged cardiomediastinal silhouette. No acute oss eous pathology seen. IMPRESSION: Stable small right pleural effusion and right basilar airspace disease with mild central pulmonary vascular congestion. Consider congestive heart failure versus noncardiogenic fluid overloa hanh.
[2019-12-29] MEDS: FUROSEMIDE 10 MG/ML 4 ML VIAL IV SCH ×2 (16:25→23:18)
[2019-12-29] MEDS: SYMBICORT 160-4.5 MCG INHALER INHALATION SCH (19:37)
[2019-12-29] MEDS ORDERED: cloNIDine HCL 0.2 MG TAB PO SCH (21:00)
--- NOTE | 2019-12-30 07:16 | XR ---
EXAMINATION TYPE: XR chest 1V portable DATE OF EXAM: 12/30/2019 COMPARISON: 12/29/2019 HISTORY: Shortness of breath TECHNIQUE: Single frontal view of the chest is obtained. FINDINGS: Right-sided consolidation and pleural effusion noted. Heart is enlarged and there is an in terstitial pattern. No pneumothorax. IMPRESSION: Stable right-sided consolidation and pleural effusion unchanged from prior exam. Correla te for mild underlying venous congestion or interstitial pneumonitis.
[2019-12-30] MEDS: SYMBICORT 160-4.5 MCG INHALER INHALATION SCH ×2 (07:51→20:57)
[2019-12-30] MEDS: ALBUTEROL NEBULIZED 2.5 MG/3 ML INHALATION SCH ×4 (07:51→20:57)
[2019-12-30 07:57] LABS: HCT 54.1 % (34.0-46.0); HGB 16.9 gm/dL (11.4-16.0); Hypochromasia Slight; MCH 31.7 pg (25.0-35.0); MCHC 31.2 g/dL (31.0-37.0); MCV 101.6 fL (80.0-100.0); Macrocytosis Slight; Mean Platelet Volume 7.6; Platelet Count 224 k/uL (150-450); RBC 5.33 m/uL (3.80-5.40); WBC 12.4 k/uL (3.8-10.6)
[2019-12-30 08:25] LABS: African American GFR (CKD) >90 (>60 ml/min/1.73 sqM); Anion Gap 5 mmol/L; Blood Urea Nitrogen 11 mg/dL (7-17); Calcium 8.2 mg/dL (8.4-10.2); Carbon Dioxide 38 mmol/L (22-30); Chloride 95 mmol/L (98-107); Glucose 121 mg/dL (74-99); Non-African American GFR(CKD) >90 (>60 ml/min/1.73 sqM); Potassium 4.1 mmol/L (3.5-5.1); Sodium 138 mmol/L (137-145)
[2019-12-30] MEDS: SODIUM CHLORIDE 0.9% 1,000 ML IV SCH (08:57)
[2019-12-30] MEDS: FUROSEMIDE 10 MG/ML 4 ML VIAL IV SCH ×2 (08:57→21:26)
--- NOTE | 2019-12-30 11:41 | P.PN ---
Subjective Progress Note Date: 12/30/19 Principal diagnosis: Shortness of breath, lower extremity swelling, pleural effusions 44-year-old female patient of Dr. Gifty Lomeli with past medical history of chronic bronchial asthma, current smoker, morbid obesity, hypertension, and possibility of polycythemia vera or hemochromatosis requiring therapeutic phlebotomy, who presented to the emergency department on 12/29/2019 for evaluation of increasing shortness of breath, and significant bilateral lower extremity edema that started a little over 2 months ago, patient also complains of abdominal wall edema. Patient did come into the emergency department on 10/21/2019 with right-sided chest pain that was worsened with deep inspiration and no associated shortness of breath. CTA chest was obtained at that time [facility] no evidence of pulmonary embolism but did show small right pleural effusion with adjacent atelectasis and/or infiltrate, and mild diffuse bronchial wall thickening possible bronchitis, and scattered borderline sized and mildly enlarged mediastinal and right hilar lymph nodes, were likely reactive. Patient was diagnosed with pneumonia with pleurisy, was discharged home on oral Levaquin. Today's chest x-ray shows increasing right pleural effusion and right lower lobe infiltrate and atelectasis compared to last exam. CTA chest showed no evidence of pulmonary embolism, and stable small to moderate size right pleural effusion with right basilar atelectasis. EKG showed sinus tachycardia w ith a rate of 112 BPM. Patient was hypoxemic on presentation with pulse ox of 88% on room air, placed on supplemental oxygen, currently at 2 L with a pulse ox of 97%, blood pressure is 131/73, afebrile. Patient was given a dose of IV Lasix in the emergency department, echocardiogram was completed, showing [id number] impairment of the left ventricular systolic function and EF of 40-45%. Aortic and mitral valves were not well visualized, and there was trace mitral regurgitation, and right ventricular systolic pressure was less than 35 mmHg, IVC not well visualized. Lab work showed white blood cell count of 14.4, hemoglobin of 16.3, hematocrit of 50.5, d-dimer was 1.41, electro lites and renal profile were within normal limits, troponin was less than 0.012, LFTs were within normal limits, proBNP was 151. We were asked to see the patient in regards to bilateral pleural effusions. In addition patient has significant edema involving lower extremities and abdominal wall On 12/30/2019 patient seen in follow-up on general medical floor. She is down 3.7 kg since yesterday, lower extremity edema improved, shortness of breath has improved, remains on diuretics on Lasix 40 mg IV push 3 times daily. His labs have been reviewed, showing white blood cell count is 12.4, hemoglobin is 16.9, sodium is 138, potassium is 4.1, chloride is 95, CO2 38, BUN is 11, creatinine is 0.57. Pro-calcitonin was negative at 0.02. Coronavirus PCR was negative. Today's chest x-ray shows stable right sided consolidation and pleural effusion, and mild underlying venous congestion. Patient has had no fever or chills, she's been hemodynamically stable, she has not had any chest pain. Objective - Vital Signs Vital signs: Vital Signs Temp 98.8 F 12/30/19 07:00 Pulse 78 12/30/19 08:03 Resp 20 12/30/19 07:00 BP 144/82 12/30/19 07:00 Pulse Ox 91 L 12/30/19 07:00 Intake & Output 12/29/19 12/30/19 12/30/19 18:59 06:59 18:59 Intake Total 200 Balance 200 Weight 139.253 kg 135.5 kg Intake: Oral 200 Other: Voiding Method Toilet Toilet Toilet # Voids 5 - Exam GENERAL EXAM: Alert, very pleasant, morbidly obese 44-year-old white female on 2 L of oxygen with pulse ox of 97% comfortable in no apparent distress. HEAD: Normocephalic/atraumatic. EYES: Normal reaction of pupils, equal size. Conjunctiva pink, sclera white. NOSE: Clear with pink turbinates. THROAT: No erythema or exudates. NECK: No masses, no JVD, no thyroid enlargement, no adenopathy. CHEST: No chest wall deformity. Symmetrical expansion. LUNGS: Equal air entry with diminished breath sounds at the bases, scattered wheezing CVS: Regular rate and rhythm, normal S1 and S2, no gallops, no murmurs, no rubs ABDOMEN: Soft, nontender. No hepatosplenomegaly, normal bowel sounds, no guarding or rigidity. EXTREMITIES: No clubbing, edema involving abdominal wall, and bilateral lower extremities, nonpitting, no cyanosis, 2+ pulses and upper and lower extremities. MUSCULOSKELETAL: Muscle strength and tone normal. SPINE: No scoliosis or deformity SKIN: No rashes CENTRAL NERVOUS SYSTEM: Alert and oriented -3. No focal deficits, tone is normal in all 4 extremities. PSYCHIATRIC: Alert and oriented -3. Appropriate affect. Intact judgment and insight. - Labs CBC & Chem 7: 12/30/19 07:13 12/30/19 07:13 Labs: Abnormal Lab Results - Last 24 Hours (Table) 12/30/19 12/30/19 Range/Units 07:13 07:13 WBC 12.4 H (3.8-10.6) k/uL Hgb 16.9 H (11.4-16.0) gm/dL Hct 54.1 H (34.0-46.0) % MCV 101.6 H (80.0-100.0) fL Chloride 95 L (98-107) mmol/L Carbon Dioxide 38 H (22-30) mmol/L Glucose 121 H (74-99) mg/dL Calcium 8.2 L (8.4-10.2) mg/dL Assessment and Plan Plan: Assessment: #1. Dyspnea, related to fluid volume overload, pleural effusions, significant lower extremity edema and abdominal wall edema. Improving with diuresis #2. Acute hypoxic respiratory failure related to bilateral pleural effusions #3. Cardiomyopathy, echocardiogram showed mild to moderate impairment of the LV function with EF of 40-45% #4. Possible history of polycythemia vera or hemochromatosis, requiring thera peutic phlebotomy every 2-3 months #5. History of chronic bronchial asthma, unspecified, and a component of COPD, the severity of which is not known at this time #6. Hypertension #7. Current every day smoker, smoked a pack and a half a day for 17 years #8. History of large rectocele and uterine prolapse, status post hysterectomy #9. Morbid obesity with a BMI of 51.3 kg/m #10. Mildly elevated d-dimer, with CTA chest negative for pulmonary embolism Plan: Continue the diuretics, we'll cut back the dose to 40 mg twice daily, cardiology consultation has been requested, overall patient is breathing easier, she is in negative fluid balance, she is down 3.7 kg in the last 24 hours, today's chest x-ray has been reviewed showing stable pleural effusions and right basilar airspace disease. Pro-calcitonin has been negative suggesting absence of infection. We'll continue to follow I performed a history & physical examination of the patient and discussed their management with my nurse practitioner, Helga Lara. I reviewed the nurse practitioner's note and agree with the documented findings and plan of care. Lung sounds are positive for scattered wheezes. The findings and the impression was discussed with the patient. I attest to the documentation by the nurse practitioner. Time with Patient: Less than 30
[2019-12-30] MEDS: LISINOPRIL 5 MG TAB PO SCH (12:35)
[2019-12-30] MEDS: METOPROLOL TARTRATE 25 MG TAB PO SCH ×2 (12:35→21:25)
--- NOTE | 2019-12-30 13:17 | P.CRDCN ---
History of Present Illness History of present illness: HISTORY OF PRESENTING ILLNESS This is a pleasant 44-year-old female past medical history significant for hypertension, asthma, chronic nicotine dependence and morbid obesity. She denies prior history of coronary artery disease and does not follow in the office with a hse specialist. We have been asked to see in consultation for shortness of breath and fluid overload. She presented to the hospital with symptoms of progressively worsening shortness of breath, lower extremity edema and increased abdominal girth over the previous one month. She states her symptoms have slowly been worsening over time. She denies any symptoms of chest discomfort, dizziness or palpitations. On arrival chest x-ray revealed a right pleural effusion. Ultrasound of the chest measured the fusion at 10 cm on the right and 3 cm on the left with areas of loculation. She was started on IV diuretics. Weight is down 4 kg since admission. She is seen and examined resting; comfortably laying flat in bed in no acute distress. She states she has been up urinating significantly and is feeling much better since admission. Echocardiogram obtained reveals impaired LV systolic function with ejection fraction 40-45%, there is no specific segmental wall motion abnormalities noted secondary to suboptimal study. There is no old echocardiogram for comparison. DIAGNOSTICS EKG reveals sinus tachycardia heart rate 112. Repeat chest x-ray today reveals a stable right-sided consolidation and pleural effusion unchanged from previous exam underlying venous congestion and interstitial pneumonitis considered. CTA negative for pulmonary embolism. Laboratory reviewed, WBC on admission 14.4 repeat today 12.4, hemoglobin 16.9, platelets 224, d-dimer admission 1.41, sodium 138, potassium 4.1, creatinine 0.57, cardiac enzymes negative 1, NT proBNP 151, for calcitonin 0.02. Current cardiac medications include clonidine 1.5 mg at bedtime. REVIEW OF SYSTEMS At the time of my exam: CONSTITUTIONAL: Denies fever or chills. CARDIOVASCULAR: Denies chest pain, shortness of breath, orthopnea, PND or pa lpitations. RESPIRATORY: Denies cough. GASTROINTESTINAL: Denies abdominal pain, diarrhea, constipation, nausea or vomiting. MUSCULOSKELETAL: Denies myalgias. NEUROLOGIC: Denies numbness, tingling or weakness. ENDOCRINE: Denies fatigue, weight change, polydipsia or polyurina. GENITOURINARY: Denies burning, hematuria or urgency with micturation. HEMATOLOGIC: Denies history of anemia or bleeding. PHYSICAL EXAMINATION Blood pressure 144/82 heart rate 78 afebrile and maintaining oxygen saturation on nasal cannula. CONSTITUTIONAL: No apparent distress. HEENT: Head is normocephalic. Pupils are equal, round. Sclerae anicteric. Mucous membranes of the mouth are moist. No JVD. No carotid bruit. CHEST EXAMINATION: No chest wall tenderness is noted on palpation or with deep breathing. Diminished on the right. Expiratory wheezes noted anteriorly. No rales or rhonchi. HEART EXAMINATION: Regular rate and rhythm. S1, S2 heard. No murmurs, gallops or rub. ABDOMEN: Soft, nontender. Positive bowel sounds. EXTREMITIES: 2+ peripheral pulses, trace bilateral lower extremity edema and no calf tenderness. NEUROLOGIC EXAMINATION: Patient is awake, alert and oriented x3. ASSESSMENT Acute systolic heart failure Hypertension Chronic nicotine dependence Morbid obesity PLAN Continue IV diuretics. Follow renal function and electrolytes in the morning. Initiate aspirin 81 mg daily, Lopressor 25 mg twice a day and losartan 5 mg daily. Patient will require cardiac catheterization to assess for underlying ischemia. Likely will take place Saturday after she is successfully diuresed. Further recommendations to follow based on clinical course. Thank you diann for this consultation. Nurse Practitioner note has been reviewed, I agree with a documented findings and plan of care. Patient was seen and examined. 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 History of Any Multi-Drug Resistant Organisms: None Reported Past Surgical History: Appendectomy, Cholecystectomy, Hysterectomy, Uterine Ablation Additional Past Surgical History / Comment(s): NOVASURE Past Anesthesia/Blood Transfusion Reactions: Motion Sickness Additional Past Anesthesia/Blood Transfusion Reaction / Comment(s): HAS TMJ Smoking Status: Current every day smoker - Past Family History Mother Family Medical History: Pulmonary Embolus Additional Family Medical History / Comment(s): Mother of a PE at the age of 63 yrs. Father Family Medical History: Hypertension, Respiratory Disorder Additional Family Medical History / Comment(s): Father is an alcoholic. He had asbestos exposure/lungs affected. Medications and Allergies Home Medications Medication Instructions Recorded Confirmed Type Albuterol Sulfate [Proair Hfa] 2 puff INHALATION RT-Q6H 10/10/18 12/29/19 History Fluticasone/Vilanterol [Breo 1 puff INHALATION RT-DAILY 10/10/18 12/29/19 History Ellipta 200-25 Mcg INH] cloNIDine HCL 1.5 tab PO HS 10/10/18 12/29/19 History Albuterol Nebulized [Ventolin 2.5 mg INHALATION RT-Q6H PRN 12/29/19 12/29/19 History Nebulized] Allergies Allergy/AdvReac Type Severity Reaction Status Date / Time azithromycin Allergy Rash/Hives Verified 12/29/19 08:08 codeine Allergy Dyspnea Verified 12/29/19 08:08 Physical Exam Vitals: Vital Signs Temp Pulse Pulse Resp BP Pulse Ox 12/30/19 08:03 78 12/30/19 07:51 74 12/30/19 07:00 98.8 F 87 20 144/82 91 L 12/30/19 02:34 98.5 F 97 18 157/80 92 L 12/29/19 19:43 78 12/29/19 19:32 78 12/29/19 19:04 98.8 F 92 19 141/93 92 L 12/29/19 15:51 76 12/29/19 15:40 74 12/29/19 15:06 98 F 72 14 150/95 95 12/29/19 14:40 98.2 F 99 20 120/79 94 L Intake and Output 12/29/19 12/30/19 12/30/19 22:59 06:59 14:59 Intake Total 200 Balance 200 Intake: Oral 200 Other: Voiding Method Toilet Toilet Weight 135.5 kg Results 12/30/19 07:13 12/30/19 07:13 CBC 12/30/19 Range/Units 07:13 WBC 12.4 H (3.8-10.6) k/uL RBC 5.33 (3.80-5.40) m/uL Hgb 16.9 H (11.4-16.0) gm/dL Hct 54.1 H (34.0-46.0) % Plt Count 224 (150-450) k/uL Comprehensive Metabolic Panel 12/30/19 Range/Units 07:13 Sodium 138 (137-145) mmol/L Potassium 4.1 (3.5-5.1) mmol/L Chloride 95 L (98-107) mmol/L Carbon Dioxide 38 H (22-30) mmol/L BUN 11 (7-17) mg/dL Creatinine 0.57 (0.52-1.04) mg/dL Glucose 121 H (74-99) mg/dL Calcium 8.2 L (8.4-10.2) mg/dL Current Medications Generic Name Dose Route Start Last Admin Trade Name Freq PRN Reason Stop Dose Admin Albuterol Sulfate 2.5 mg 12/29/19 16:00 12/30/19 11:51 Ventolin Nebulized INHALATION Not Given RT-QID QI Budesonide/Formoterol Fumarate 2 puff 12/29/19 20:00 12/30/19 07:51 Symbicort 160-4.5 Mcg Inhaler INHALATION 2 puff RT-BID QI Administration Clonidine 0.3 mg 12/30/19 21:00 Catapres PO HS QI Furosemide 40 mg 12/30/19 21:00 Lasix IV Q12HR QI Sodium Chloride 1,000 mls @ 20 mls/hr 12/29/19 09:00 12/30/19 08:57 Saline 0.9% IV Not Given .Q24H QI Lisinopril 5 mg 12/30/19 11:15 12/30/19 12:35 Zestril PO 5 mg DAILY QI Administration Metoprolol Tartrate 25 mg 12/30/19 11:15 12/30/19 12:35 Lopressor PO 25 mg BID QI Administration Naloxone HCl 0.2 mg 12/29/19 08:59 Narcan IV Q2M PRN Opioid Reversal Intake and Output 12/29/19 12/30/19 12/30/19 22:59 06:59 14:59 Intake Total 200 Balance 200 Intake: Oral 200 Other: Voiding Method Toilet Toilet Weight 135.5 kg 12/30/19 07:13 12/30/19 07:13
[2019-12-30] MEDS: ASPIRIN 81 MG PO SCH (15:38)
[2019-12-30] MEDS: cloNIDine HCL 0.1 MG TAB PO SCH (21:35)
[2019-12-31 07:56] LABS: African American GFR (CKD) >90 (>60 ml/min/1.73 sqM); Anion Gap 5 mmol/L; Blood Urea Nitrogen 14 mg/dL (7-17); Calcium 8.3 mg/dL (8.4-10.2); Carbon Dioxide 37 mmol/L (22-30); Chloride 95 mmol/L (98-107); Cholesterol 151 mg/dL (<200); Glucose 108 mg/dL (74-99); HDL Cholesterol 23 mg/dL (40-60); LDL Cholesterol,Calculated 113 mg/dL (0-99); Non-African American GFR(CKD) >90 (>60 ml/min/1.73 sqM); Sodium 137 mmol/L (137-145); Triglycerides 74 mg/dL (<150)
[2019-12-31] MEDS: METOPROLOL TARTRATE 25 MG TAB PO SCH ×2 (07:57→20:18)
[2019-12-31] MEDS: LISINOPRIL 5 MG TAB PO SCH (07:57)
[2019-12-31] MEDS: FUROSEMIDE 10 MG/ML 4 ML VIAL IV SCH (07:57)
[2019-12-31] MEDS: ASPIRIN 81 MG PO SCH (07:57)
[2019-12-31] MEDS: SYMBICORT 160-4.5 MCG INHALER INHALATION SCH ×2 (07:59→21:06)
[2019-12-31] MEDS: ALBUTEROL NEBULIZED 2.5 MG/3 ML INHALATION SCH ×4 (07:59→21:06)
--- NOTE | 2019-12-31 08:29 | P.HPIM ---
History of Present Illness H&P Date: 12/30/19 Chief Complaint: shortness of breath Carolina Ricketts is a 44 yo F with with past medical history asthma/COPD, current smoker, morbid obesity and hypertension who presented with worsening shortness of breath as well as abdominal and bilateral leg swelling over the past few mo nths. She has no previous cardiac history and denies diet high in salt or alcohol. She denies orthopnea or chest pain. Pt notes she was recently seen in the ED with shortness of breath a few months ago and at that time was felt to have COVID19, she did not require supplemental O2 and feels she improved from that episode before developing this current increasing dyspnea. On initial presentation she was hypoxic on RA with SpO2 8*%, tachycardic and CTA chest with small to moderate R effusion. Patient was given a dose of IV Lasix in the emergency department, echocardiogram was completed, showing [id number] impairment of the left ventricular systolic function and EF of 40-45% with normal RVSP. WBC 14.4, hemoglobin of 16.3, BNP 151, trop negative, electrolytes stable. Pt was admitted and started on IV lasix. Today she reports significant clinical improvement in both her breathing and edema. Review of Systems All systems: negative Constitutional: Denies chills, Denies fever Eyes: denies blurred vision, denies pain Ears, nose, mouth and throat: Denies headache, Denies sore throat Cardiovascular: Reports dyspnea on exertion, Reports edema, Denies chest pain, Denies shortness of breath Respiratory: Reports dyspnea, Denies cough Gastrointestinal: Denies abdominal pain, Denies diarrhea, Denies nausea, Denies vomiting Genitourinary: Denies dysuria, Denies hematuria Musculoskeletal: Denies myalgias Integumentary: Denies pruritus, Denies rash Neurological: Denies numbness, Denies weakness Psychiatric: Denies anxiety, Denies depression Endocrine: Denies fatigue, Denies weight change Past Medical History Past Medical History: Asthma, Blood Disorder, Pneumonia, Vascular Disorder Additional Past Medical History / Comment(s): 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 History of Any Multi-Drug Resistant Organisms: None Reported Past Surgical History: Appendectomy, Cholecystectomy, Hysterectomy, Uterine Ablation Additional Past Surgical History / Comment(s): NOVASURE Past Anesthesia/Blood Transfusion Reactions: Motion Sickness Additional Past Anesthesia/Blood Transfusion Reaction / Comment(s): HAS TMJ Smoking Status: Current every day smoker - Past Family History Mother Family Medical History: Pulmonary Embolus Additional Family Medical History / Comment(s): Mother of a PE at the age of 63 yrs. Father Family Medical History: Hypertension, Respiratory Disorder Additional Family Medical History / Comment(s): Father is an alcoholic. He had asbestos exposure/lungs affected. Medications and Allergies Home Medications Medication Instructions Recorded Confirmed Type Albuterol Sulfate [Proair Hfa] 2 puff INHALATION RT-Q6H 10/10/18 12/29/19 History Fluticasone/Vilanterol [Breo 1 puff INHALATION RT-DAILY 10/10/18 12/29/19 History Ellipta 200-25 Mcg INH] cloNIDine HCL 1.5 tab PO HS 10/10/18 12/29/19 History Albuterol Nebulized [Ventolin 2.5 mg INHALATION RT-Q6H PRN 12/29/19 12/29/19 History Nebulized] Allergies Allergy/AdvReac Type Severity Reaction Status Date / Time azithromycin Allergy Rash/Hives Verified 12/29/19 08:08 codeine Allergy Dyspnea Verified 12/29/19 08:08 Physical Exam Vitals: Vital Signs Temp Pulse Pulse Resp BP Pulse Ox 12/31/19 08:12 80 12/31/19 08:01 76 12/31/19 04:03 99.1 F 93 20 95/56 94 L 12/30/19 21:05 77 12/30/19 20:57 77 12/30/19 18:19 99.1 F 93 18 118/74 93 L 12/30/19 16:57 78 12/30/19 16:48 78 12/30/19 15:00 98.2 F 97 16 164/87 91 L Intake and Output 12/30/19 12/31/19 12/31/19 22:59 06:59 14:59 Other: Voiding Method Toilet General: Obese, well developed, NAD. Vitals reviewed Eyes: PERRL, EOMI, conjunctiva normal HENT: normocephalic, mucus membranes moist Neck: supple, no JVD Lungs: normal respiratory effort. Decreased entry at bases. Mild wheezing. No rhonchi CV: Regular rate and rhythm, no murmur. Peripheral pulses 2+. 1+ edema BLE Abdomen: soft, nondistended, no organomegaly Lymph: no cervical or axillary LAD Skin: warm and dry. Neuro: A&Ox3, normal mood and affect Results CBC & Chem 7: 12/30/19 07:13 12/31/19 07:02 Labs: Abnormal Lab Results - Last 24 Hours (Table) 12/30/19 12/31/19 Range/Units 07:13 07:02 Chloride 95 L 95 L (98-107) mmol/L Carbon Dioxide 38 H 37 H (22-30) mmol/L Glucose 121 H 108 H (74-99) mg/dL Calcium 8.2 L 8.3 L (8.4-10.2) mg/dL LDL Cholesterol, Calc 113 H (0-99) mg/dL HDL Cholesterol 23 L (40-60) mg/dL Thrombosis Risk Factor Assmnt - Choose All That Apply Any of the Below Risk Factors Present?: Yes Each Factor Represents 1 point: Age 41-60 years, Obesity (BMI >25), Serious lung disease incl. pneumonia (< 1month), Varicose veins Other Risk Factors: No Other congenital or acquired thrombophilia - If yes, enter type in comment: No Thrombosis Risk Factor Assessment Total Risk Factor Score: 4 Thrombosis Risk Factor Assessment Level: Moderate Risk Assessment and Plan (1) Acute hypoxemic respiratory failure Current Visit: Yes Status: Acute Code(s): J96.01 - ACUTE RESPIRATORY FAILURE WITH HYPOXIA SNOMED Code(s): 004257749 (2) Acute systolic CHF (congestive heart failure), NYHA class 1 Current Visit: Yes Status: Acute Code(s): I50.21 - ACUTE SYSTOLIC (CONGESTIVE) HEART FAILURE SNOMED Code(s): 938087219 (3) Moderate asthma Current Visit: Yes Status: Acute Code(s): J45.909 - UNSPECIFIED ASTHMA, UNCOMPLICATED SNOMED Code(s): 878526055 (4) Pleural effusion Current Visit: Yes Status: Acute Code(s): J90 - PLEURAL EFFUSION, NOT ELSEWHERE CLASSIFIED SNOMED Code(s): 93735147 Plan: 1. Acute respiratory failure with hypoxia. Secondary to new onset systolic CHF. Cardiology and Pulmonology consult. IV lasix. Supplemental O2 titrating to 92% 2. Acute systolic CHF. with EF 45%. Start on lopressor and lisinopril. I/Os 3. Pleural effusions. Treat underlying cause, pulm following 4. HTN 5. Tobacco abuse 6. Morbid obesity
[2019-12-31] MEDS ORDERED: ALPRAZolam 0.5 MG TAB PO PRN (10:02)
[2019-12-31] MEDS ORDERED: NITROGLYCERIN SL TABS 0.4 MG TAB SUBLINGUAL PRN (10:02)
[2019-12-31] MEDS ORDERED: ALPRAZolam 0.25 MG TAB PO PRN (10:02)
--- NOTE | 2019-12-31 12:10 | P.PN ---
Subjective Progress Note Date: 12/31/19 Principal diagnosis: Shortness of breath, lower extremity swelling, pleural effusions 44-year-old female patient of Dr. Gifty Lomeli with past medical history of chronic bronchial asthma, current smoker, morbid obesity, hypertension, and possibility of polycythemia vera or hemochromatosis requiring therapeutic phlebotomy, who presented to the emergency department on 12/29/2019 for evaluation of increasing shortness of breath, and significant bilateral lower extremity edema that started a little over 2 months ago, patient also complains of abdominal wall edema. Patient did come into the emergency department on 10/21/2019 with right-sided chest pain that was worsened with deep inspiration and no associated shortness of breath. CTA chest was obtained at that time [facility] no evidence of pulmonary embolism but did show small right pleural effusion with adjacent atelectasis and/or infiltrate, and mild diffuse bronchial wall thickening possible bronchitis, and scattered borderline sized and mildly enlarged mediastinal and right hilar lymph nodes, were likely reactive. Patient was diagnosed with pneumonia with pleurisy, was discharged home on oral Levaquin. Today's chest x-ray shows increasing right pleural effusion and right lower lobe infiltrate and atelectasis compared to last exam. CTA chest showed no evidence of pulmonary embolism, and stable small to moderate size right pleural effusion with right basilar atelectasis. EKG showed sinus tachycardia w ith a rate of 112 BPM. Patient was hypoxemic on presentation with pulse ox of 88% on room air, placed on supplemental oxygen, currently at 2 L with a pulse ox of 97%, blood pressure is 131/73, afebrile. Patient was given a dose of IV Lasix in the emergency department, echocardiogram was completed, showing [id number] impairment of the left ventricular systolic function and EF of 40-45%. Aortic and mitral valves were not well visualized, and there was trace mitral regurgitation, and right ventricular systolic pressure was less than 35 mmHg, IVC not well visualized. Lab work showed white blood cell count of 14.4, hemoglobin of 16.3, hematocrit of 50.5, d-dimer was 1.41, electro lites and renal profile were within normal limits, troponin was less than 0.012, LFTs were within normal limits, proBNP was 151. We were asked to see the patient in regards to bilateral pleural effusions. In addition patient has significant edema involving lower extremities and abdominal wall On 12/30/2019 patient seen in follow-up on general medical floor. She is down 3.7 kg since yesterday, lower extremity edema improved, shortness of breath has improved, remains on diuretics on Lasix 40 mg IV push 3 times daily. His labs have been reviewed, showing white blood cell count is 12.4, hemoglobin is 16.9, sodium is 138, potassium is 4.1, chloride is 95, CO2 38, BUN is 11, creatinine is 0.57. Pro-calcitonin was negative at 0.02. Coronavirus PCR was negative. Today's chest x-ray shows stable right sided consolidation and pleural effusion, and mild underlying venous congestion. Patient has had no fever or chills, she's been hemodynamically stable, she has not had any chest pain. On 12/31/2019 patient seen in follow-up on general medical floor. She continues to diurese, breathing easier, lower extremity and abdominal edema is improving, IV Lasix has been cut back to once daily. She is another 2 kg negative fluid balance over the last 24 hours. Cardiology has been consulted, added beta blockers, lisinopril, and possibility of cardiac catheterization is being considered for Saturday. Objective - Vital Signs Vital signs: Vital Signs Temp 99.3 F 12/31/19 07:00 Pulse 80 12/31/19 11:29 Resp 16 12/31/19 07:00 BP 95/54 12/31/19 07:00 Pulse Ox 92 L 12/31/19 07:00 Intake & Output 12/30/19 12/31/19 12/31/19 18:59 06:59 18:59 Intake Total 520 Balance 520 Weight 133.583 kg Intake: Oral 520 Other: Voiding Method Toilet Toilet - Exam GENERAL EXAM: Alert, very pleasant, morbidly obese 44-year-old white female on 2 L of oxygen with pulse ox of 97% comfortable in no apparent distress. HEAD: Normocephalic/atraumatic. EYES: Normal reaction of pupils, equal size. Conjunctiva pink, sclera white. NOSE: Clear with pink turbinates. THROAT: No erythema or exudates. NECK: No masses, no JVD, no thyroid enlargement, no adenopathy. CHEST: No chest wall deformity. Symmetrical expansion. LUNGS: Equal air entry with diminished breath sounds at the bases, scattered wheezing CVS: Regular rate and rhythm, normal S1 and S2, no gallops, no murmurs, no rubs ABDOMEN: Soft, nontender. No hepatosplenomegaly, normal bowel sounds, no guarding or rigidity. EXTREMITIES: No clubbing, edema involving abdominal wall, and bilateral lower extremities, nonpitting, no cyanosis, 2+ pulses and upper and lower extremities. MUSCULOSKELETAL: Muscle strength and tone normal. SPINE: No scoliosis or deformity SKIN: No rashes CENTRAL NERVOUS SYSTEM: Alert and oriented -3. No focal deficits, tone is normal in all 4 extremities. PSYCHIATRIC: Alert and oriented -3. Appropriate affect. Intact judgment and insight. - Labs CBC & Chem 7: 12/30/19 07:13 12/31/19 07:02 Labs: Abnormal Lab Results - Last 24 Hours (Table) 12/31/19 Range/Units 07:02 Chloride 95 L (98-107) mmol/L Carbon Dioxide 37 H (22-30) mmol/L Glucose 108 H (74-99) mg/dL Calcium 8.3 L (8.4-10.2) mg/dL LDL Cholesterol, Calc 113 H (0-99) mg/dL HDL Cholesterol 23 L (40-60) mg/dL Assessment and Plan Plan: Assessment: #1. Dyspnea, related to fluid volume overload, pleural effusions, significant lower extremity edema and abdominal wall edema. Improving with diuresis #2. Acute hypoxic respiratory failure related to bilateral pleural effusions #3. Cardiomyopathy, echocardiogram showed mild to moderate impairment of the LV function with EF of 40-45% #4. Possible history of polycythemia vera or hemochromatosis, requiring therapeutic phlebotomy every 2-3 months #5. History of chronic bronchial asthma, unspecified, and a component of COPD, the severity of which is not known at this time #6. Hypertension #7. Current every day smoker, smoked a pack and a half a day for 17 years #8. History of large rectocele and uterine prolapse, status post hysterectomy #9. Morbid obesity with a BMI of 51.3 kg/m #10. Mildly elevated d-dimer, with CTA chest negative for pulmonary embolism Plan: Continue with diuresis, patient has been started on Von inhibitors and beta blockers. Weaning FiO2, patient overall is breathing easier, increase activity as tolerated. Repeat electrolytes and renal profile in the morning. I performed a history & physical examination of the patient and discussed their management with my nurse practitioner, Helga Lara. I reviewed the nurse practitioner's note and agree with the documented findings and plan of care. Lung sounds are positive for scattered wheezes. The findings and the impression was discussed with the patient. I attest to the documentation by the nurse practitioner. Time with Patient: Less than 30
--- NOTE | 2019-12-31 12:23 | P.PN ---
Subjective HISTORY OF PRESENTING ILLNESS This is a pleasant 44-year-old female past medical history significant for hypertension, asthma, chronic nicotine dependence and morbid obesity. 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 She is seen and examined sitting up in the chair in no acute distress. She states she has been up and urinating a lot. Her weight continues to decrease. She is down a total of 6 kg since admission. She still has some swelling in the legs but feels a significant decrease in abdominal girth. She denies worsening shortness of breath, no chest pain, dizziness or palpitations. Blood pressure 95/64 heart rate 80 afebrile and maintaining oxygen saturation on nasal cannula. Laboratory data reviewed, sodium 137, potassium 4.0, creatinine 0.56, LDL 113 and HDL 23. She is currently maintained on aspirin 81 mg daily, clonidine 0.3 mg at bedtime, Lasix 40 mg IV twice a day, lisinopril 5 mg daily and Lopressor 25 mg twice a day. PHYSICAL EXAMINATION CONSTITUTIONAL: No apparent distress. HEENT: Head is normocephalic. Pupils are equal, round. Sclerae anicteric. Mucous membranes of the mouth are moist. No JVD. No carotid bruit. CHEST EXAMINATION: No chest wall tenderness is noted on palpation or with deep breathing. Diminished on the right. Expiratory wheezes noted anteriorly. No rales or rhonchi. HEART EXAMINATION: Regular rate and rhythm. S1, S2 heard. No murmurs, gallops or rub. EXTREMITIES: 2+ peripheral pulses, trace bilateral lower extremity edema and no calf tenderness. ASSESSMENT Acute systolic heart failure Hypertension Dyslipidemia Chronic nicotine dependence Morbid obesity PLAN Decrease lasix to 40 mg IV daily. Initiate atorvastatin 40 mg daily. Proceed with cardiac catheterization tomorrow morning with Dr. Walter to assess for underling obstructive CAD. I have discussed the risks, benefits and alternative therapies for the above-mentioned procedure and for both sedation/analgesia as well as necessary blood product administration, if indicated, as they pertain to this patient. The patient has indicated understanding and acceptance of the risks and procedures discussed. Questions have been answered appropriately and she is agreeable to move forward with the above stated procedure. She will be NPO after midnight tonight. Further recommendations to follow based on clinical course. Nurse Practitioner note has been reviewed, I agree with a documented findings and plan of care. Patient was seen and examined. Objective - Vital Signs Vital signs: Vital Signs Temp 99.3 F 12/31/19 07:00 Pulse 80 12/31/19 08:12 Resp 16 12/31/19 07:00 BP 95/54 12/31/19 07:00 Pulse Ox 92 L 12/31/19 07:00 Intake & Output 12/30/19 12/31/19 12/31/19 18:59 06:59 18:59 Intake Total 520 Balance 520 Weight 133.583 kg Intake: Oral 520 Other: Voiding Method Toilet Toilet - Labs CBC & Chem 7: 12/30/19 07:13 12/31/19 07:02 Labs: Abnormal Lab Results - Last 24 Hours (Table) 12/31/19 Range/Units 07:02 Chloride 95 L (98-107) mmol/L Carbon Dioxide 37 H (22-30) mmol/L Glucose 108 H (74-99) mg/dL Calcium 8.3 L (8.4-10.2) mg/dL LDL Cholesterol, Calc 113 H (0-99) mg/dL HDL Cholesterol 23 L (40-60) mg/dL
[2019-12-31] MEDS: ATORVASTATIN 40 MG TAB PO SCH (12:28)
--- NOTE | 2019-12-31 13:00 | P.PN ---
Subjective Progress Note Date: 12/31/19 Carolina Ricketts is a 44 yo F with with past medical history asthma/COPD, current smoker, morbid obesity and hypertension who presented with worsening shortness of breath as well as abdominal and bilateral leg swelling over the past few months. She has no previous cardiac history and denies diet high in salt or alcohol. She denies orthopnea or chest pain. Pt notes she was recently seen in the ED with shortness of breath a few months ago and at that time was felt to have COVID19, she did not require supplemental O2 and feels she improved from that episode before developing this current increasing dyspnea. On initial presentation she was hypoxic on RA with SpO2 8*%, tachycardic and CTA chest with small to moderate R effusion. Patient was given a dose of IV Lasix in the emergency department, echocardiogram was completed, showing [id number] impairment of the left ventricular systolic function and EF of 40-45% with normal RVSP. WBC 14.4, hemoglobin of 16.3, BNP 151, trop negative, electrolytes stable. Pt was admitted and started on IV lasix. Today she reports significant clinical improvement in both her breathing and edema. 12/31/19 Diuresing well Lasix IV push with 24-hour I&O reflecting a negative fluid balance. Feels better-breathing easier, slept well, able to lay flat, decreasing edema of both abdomen and lower extremities. Maintaining O2 sats in the 90s on 3 L nasal cannula. Beta blockers, LINK inhibitor initiated yesterday with blood pressure significantly decreased, borderline hypotension with systolic blood pressures in the 90s. Evaluated by cardiology and scheduled for cardiac catheterization tomorrow. Significant clinical improvement. Objective - Vital Signs Vital signs: Vital Signs Temp 99.3 F 12/31/19 07:00 Pulse 80 12/31/19 11:29 Resp 16 12/31/19 07:00 BP 95/54 12/31/19 07:00 Pulse Ox 92 L 12/31/19 07:00 Intake & Output 12/30/19 12/31/19 12/31/19 18:59 06:59 18:59 Intake Total 520 Balance 520 Weight 133.583 kg Intake: Oral 520 Other: Voiding Method Toilet Toilet - Exam General: Obese, well developed, NAD. Vitals reviewed Eyes: PERRL, EOMI, conjunctiva normal HENT: normocephalic, mucus membranes moist Neck: supple, no JVD Lungs: normal respiratory effort. Decreased entry at bases. Mild wheezing. No rhonchi CV: Regular rate and rhythm, no murmur. Peripheral pulses 2+. 1+ edema BLE Abdomen: soft, nondistended, no organomegaly Lymph: no cervical or axillary LAD Skin: warm and dry. Neuro: A&Ox3, normal mood and affect - Labs CBC & Chem 7: 12/30/19 07:13 12/31/19 07:02 Labs: Abnormal Lab Results - Last 24 Hours (Table) 12/31/19 Range/Units 07:02 Chloride 95 L (98-107) mmol/L Carbon Dioxide 37 H (22-30) mmol/L Glucose 108 H (74-99) mg/dL Calcium 8.3 L (8.4-10.2) mg/dL LDL Cholesterol, Calc 113 H (0-99) mg/dL HDL Cholesterol 23 L (40-60) mg/dL Assessment and Plan Assessment: (1) Acute hypoxemic respiratory failure secondary to new onset systolic CHF Current Visit: Yes Status: Acute Code(s): J96.01 - ACUTE RESPIRATORY FAILURE WITH HYPOXIA SNOMED Code(s): 691233656 (2) Acute systolic CHF (congestive heart failure), NYHA class 1, EF 40-45% Current Visit: Yes Status: Acute Code(s): I50.21 - ACUTE SYSTOLIC (CONGESTIV E) HEART FAILURE SNOMED Code(s): 596219724 (3) Chronic Moderate asthma Current Visit: Yes Status: Acute Code(s): J45.909 - UNSPECIFIED ASTHMA, UNCOMPLICATED SNOMED Code(s): 665430178 (4) Pleural effusions Current Visit: Yes Status: Acute Code(s): J90 - PLEURAL EFFUSION, NOT ELSEWHERE CLASSIFIED SNOMED Code(s): 67836428 (5) hypertension (6) morbid obesity, BMI 50.6 (7) ongoing nicotine dependence (8) chronic polycythemia, requires therapeutic phlebotomy every 2-3 months Plan: Continue on current medication regime ,monitoring and symptomatic treatment. Diuretics decreased to daily- Continue diuresing, scheduled for cardiac catheterization tomorrow. Close monitoring of creatinine, lytes with repeat labs ordered for a.m. The impression and plan of care has been dictated as directed. : I performed a history and examination of this patient, discussed the same with the dictator. I agree with the dictator's note ,documented as a scribe. Any additional findings or plans will be noted.
[2019-12-31] MEDS: cloNIDine HCL 0.1 MG TAB PO SCH (20:19)
[2019-12-31] MEDS ORDERED: SODIUM CHLORIDE 0.9% 1,000 ML in EMPTY BAG 1 BAG IV ONE (21:00)
[2020-01-01] MEDS ORDERED: ASPIRIN 325 MG TAB PO ONE (06:00)
[2020-01-01] MEDS: METOPROLOL TARTRATE 25 MG TAB PO SCH ×2 (07:32→21:13)
[2020-01-01] MEDS: LISINOPRIL 5 MG TAB PO SCH (07:32)
[2020-01-01] MEDS: ATORVASTATIN 40 MG TAB PO SCH (07:33)
[2020-01-01 08:28] LABS: African American GFR (CKD) >90 (>60 ml/min/1.73 sqM); Anion Gap 3 mmol/L; Blood Urea Nitrogen 16 mg/dL (7-17); Calcium 8.7 mg/dL (8.4-10.2); Carbon Dioxide 36 mmol/L (22-30); Chloride 98 mmol/L (98-107); Glucose 99 mg/dL (74-99); Non-African American GFR(CKD) >90 (>60 ml/min/1.73 sqM); Sodium 137 mmol/L (137-145)
[2020-01-01 08:47] LABS: Potassium 4.8 mmol/L (3.5-5.1)
[2020-01-01] MEDS: ALBUTEROL NEBULIZED 2.5 MG/3 ML INHALATION SCH ×5 (08:49→19:42)
[2020-01-01] MEDS: SYMBICORT 160-4.5 MCG INHALER INHALATION SCH ×2 (08:50→19:44)
[2020-01-01] MEDS ORDERED: FUROSEMIDE 10 MG/ML 4 ML VIAL IV SCH (09:00)
[2020-01-01] MEDS ORDERED: LIDOCAINE 1% INJ 10MG/ML (20 ML MDV) ONE (09:19)
[2020-01-01] MEDS ORDERED: SODIUM CHLORIDE 0.9% 500 ML 500 ML IV ONE (09:32)
[2020-01-01] MEDS ORDERED: fentaNYL (PF) 50 MCG/ML 2 ML AMP ONE (09:47)
[2020-01-01] MEDS ORDERED: MIDAZOLAM 2 MG/2 ML VIAL IV ONE (10:07)
[2020-01-01] MEDS ORDERED: fentaNYL (PF) 50 MCG/ML 2 ML AMP IV ONE (10:08)
[2020-01-01] MEDS ORDERED: LIDOCAINE 1% INJ 10MG/ML (20 ML MDV) SQ ONE (10:09)
[2020-01-01] MEDS ORDERED: IOPAMIDOL-370 125ML BTL INJ ONE (10:19)
[2020-01-01] MEDS ORDERED: RX INFO: IV CONTRAST WAS GIVEN 1 EACH MISC MISCELLANE PRN (10:31)
--- NOTE | 2020-01-01 10:55 | P.PN ---
Subjective Progress Note Date: 01/01/20 Carolina Ricketts is a 44 yo F with with past medical history asthma/COPD, current smoker, morbid obesity and hypertension who presented with worsening shortness of breath as well as abdominal and bilateral leg swelling over the past few months. She has no previous cardiac history and denies diet high in salt or alcohol. She denies orthopnea or chest pain. Pt notes she was recently seen in the ED with shortness of breath a few months ago and at that time was felt to have COVID19, she did not require supplemental O2 and feels she improved from that episode before developing this current increasing dyspnea. On initial presentation she was hypoxic on RA with SpO2 8*%, tachycardic and CTA chest with small to moderate R effusion. Patient was given a dose of IV Lasix in the emergency department, echocardiogram was completed, showing [id number] impairment of the left ventricular systolic function and EF of 40-45% with normal RVSP. WBC 14.4, hemoglobin of 16.3, BNP 151, trop negative, electrolytes stable. Pt was admitted and started on IV lasix. Today she reports significant clinical improvement in both her breathing and edema. 12/31/19 Diuresing well Lasix IV push with 24-hour I&O reflecting a negative fluid balance. Feels better-breathing easier, slept well, able to lay flat, decreasing edema of both abdomen and lower extremities. Maintaining O2 sats in the 90s on 3 L nasal cannula. Beta blockers, LINK inhibitor initiated yesterday with blood pressure significantly decreased, borderline hypotension with systolic blood pressures in the 90s. Evaluated by cardiology and scheduled for cardiac catheterization tomorrow. Significant clinical improvement. 01/01/2020 Lasix decreased to once daily yesterday, diuresing well with significant clinical improvement. Tolerated shower, slept well last night, with no shortness of breath. Maintaining O2 sats in the low 90s on 3 L nasal cannula. Denies chest pain, palpitations or increasing shortness of breath. Scheduled for cardiac catheterization this morning. Objective - Vital Signs Vital signs: Vital Signs Temp 98.6 F 01/01/20 07:00 Pulse 86 01/01/20 07:00 Resp 16 01/01/20 07:00 BP 107/64 01/01/20 07:00 Pulse Ox 91 L 01/01/20 07:00 Intake & Output 12/31/19 01/01/20 01/01/20 18:59 06:59 18:59 Intake Total 200 200 Balance 200 200 Weight 134.5 kg Intake: Oral 200 200 Other: Voiding Method Toilet # Voids 1 - Exam General: Sitting up in chair, no acute distress Eyes: PERRL, EOMI, conjunctiva normal HENT: normocephalic, mucus membranes dry Neck: supple, no JVD Lungs: normal respiratory effort. Decreased entry at bases. No rhonchi, crackles or wheezing CV: Regular rate and rhythm, no murmur. Peripheral pulses 2+. Decreasing 1+ edema BLE Abdomen: softer, nondistended, no organomegaly, positive bowel sounds Skin: warm and dry. Neuro: A&Ox3, normal mood and affect - Labs CBC & Chem 7: 12/30/19 07:13 01/01/20 07:36 Assessment and Plan Assessment: (1) Acute hypoxemic respiratory failure secondary to new onset systolic CHF Current Visit: Yes Status: Acute Code(s): J96.01 - ACUTE RESPIRATORY FAILURE WITH HYPOXIA SNOMED Code(s): 047807406 (2) Acute systolic CHF (congestive heart failure), NYHA class 1, EF 40-45% Current Visit: Yes Status: Acute Code(s): I50.21 - ACUTE SYSTOLIC (CONGESTIVE) HEART FAILURE SNOMED Code(s): 518897742 (3) Chronic Moderate asthma Current Visit: Yes Status: Acute Code(s): J45.909 - UNSPECIFIED ASTHMA, U NCOMPLICATED SNOMED Code(s): 357967859 (4) Pleural effusions Current Visit: Yes Status: Acute Code(s): J90 - PLEURAL EFFUSION, NOT ELSEWHERE CLASSIFIED SNOMED Code(s): 51847820 (5) hypertension (6) morbid obesity, BMI 50.6 (7) ongoing nicotine dependence (8) chronic polycythemia, requires therapeutic phlebotomy every 2-3 months Plan: Continue on current medication regime ,monitoring and symptomatic treatment.Cardiac catheterization pending. Continue diuresing with close monitoring of creatinine, lytes with repeat labs ordered for a.m. The impression and plan of care has been dictated as directed. : I performed a history and examination of this patient, discussed the same with the dictator. I agree with the dictator's note ,documented as a scribe. Any additional findings or plans will be noted.
--- NOTE | 2020-01-01 12:55 | CC ---
CARDIAC CATHETERIZATION REPORT INDICATION: Cardiomyopathy with new onset congestive heart failure. PROCEDURE NOTE: After obtaining informed consent, left heart catheterization, coronary angiogram are performed via the right femoral artery using standard Tanika catheters. Patient tolerated the procedure well without any obvious immediate complications. A femoral angiogram was performed and Angio-Seal will be deployed for hemostasis. Patient received moderate conscious sedation. Total sedation time was 18 minutes. FINDINGS: HEMODYNAMICS: Left ventricular end-diastolic pressure is 20 mm. There is no significant gradient across the aortic valve. LEFT VENTRICULOGRAM: Left ventriculogram was not performed. ANGIOGRAPHIC DATA LEFT MAIN CORONARY ARTERY: Left main coronary artery is a normal-sized vessel and is free of stenosis. Divides into left anterior descending coronary artery and circumflex coronary artery. LAD and its branches, circumflex coronary artery and its branches are free of significant stenosis. Right coronary artery is a large dominant vessel and is free of stenosis. CONCLUSION: 1. Normal coronary arteries. 2. Elevated left ventricular end-diastolic pressure. PLAN: Patient's cardiomyopathy will be treated with optimal medical therapy. MMODL / IJN: [id number] /
--- NOTE | 2020-01-01 13:23 | P.PN ---
Subjective Progress Note Date: 01/01/20 Principal diagnosis: Shortness of breath, lower extremity swelling, pleural effusions 44-year-old female patient of Dr. Gifty Lomeli with past medical history of chronic bronchial asthma, current smoker, morbid obesity, hypertension, and possibility of polycythemia vera or hemochromatosis requiring therapeutic phlebotomy, who presented to the emergency department on 12/29/2019 for evaluation of increasing shortness of breath, and significant bilateral lower extremity edema that started a little over 2 months ago, patient also complains of abdominal wall edema. Patient did come into the emergency department on 10/21/2019 with right-sided chest pain that was worsened with deep inspiration and no associated shortness of breath. CTA chest was obtained at that time [facility] no evidence of pulmonary embolism but did show small right pleural effusion with adjacent atelectasis and/or infiltrate, and mild diffuse bronchial wall thickening possible bronchitis, and scattered borderline sized and mildly enlarged mediastinal and right hilar lymph nodes, were likely reactive. Patient was diagnosed with pneumonia with pleurisy, was discharged home on oral Levaquin. Today's chest x-ray shows increasing right pleural effusion and right lower lobe infiltrate and atelectasis compared to last exam. CTA chest showed no evidence of pulmonary embolism, and stable small to moderate size right pleural effusion with right basilar atelectasis. EKG showed sinus tachycardia w ith a rate of 112 BPM. Patient was hypoxemic on presentation with pulse ox of 88% on room air, placed on supplemental oxygen, currently at 2 L with a pulse ox of 97%, blood pressure is 131/73, afebrile. Patient was given a dose of IV Lasix in the emergency department, echocardiogram was completed, showing [id number] impairment of the left ventricular systolic function and EF of 40-45%. Aortic and mitral valves were not well visualized, and there was trace mitral regurgitation, and right ventricular systolic pressure was less than 35 mmHg, IVC not well visualized. Lab work showed white blood cell count of 14.4, hemoglobin of 16.3, hematocrit of 50.5, d-dimer was 1.41, electro lites and renal profile were within normal limits, troponin was less than 0.012, LFTs were within normal limits, proBNP was 151. We were asked to see the patient in regards to bilateral pleural effusions. In addition patient has significant edema involving lower extremities and abdominal wall On 12/30/2019 patient seen in follow-up on general medical floor. She is down 3.7 kg since yesterday, lower extremity edema improved, shortness of breath has improved, remains on diuretics on Lasix 40 mg IV push 3 times daily. His labs have been reviewed, showing white blood cell count is 12.4, hemoglobin is 16.9, sodium is 138, potassium is 4.1, chloride is 95, CO2 38, BUN is 11, creatinine is 0.57. Pro-calcitonin was negative at 0.02. Coronavirus PCR was negative. Today's chest x-ray shows stable right sided consolidation and pleural effusion, and mild underlying venous congestion. Patient has had no fever or chills, she's been hemodynamically stable, she has not had any chest pain. On 12/31/2019 patient seen in follow-up on general medical floor. She continues to diurese, breathing easier, lower extremity and abdominal edema is improving, IV Lasix has been cut back to once daily. She is another 2 kg negative fluid balance over the last 24 hours. Cardiology has been consulted, added beta blockers, lisinopril, and possibility of cardiac catheterization is being considered for Saturday. On 01/01/2020 patient seen in follow-up on selective care unit, she status post heart catheterization today, she is resting comfortably in bed in reverse Trendelenburg position, is calm and comfortable, 2 L of oxygen her pulse ox is 91%, hemodynamically she is stable, no worsening dyspnea, no chest pain. Heart catheterization showed normal coronary arteries and elevated left ventricular end-diastolic pressure of 20 mmHg. No was no significant gradient across the aortic valve. And has been diuresed, she has been transitioned to oral diuretics to 40 mg twice daily, her lower extremity edema has significantly improved. Lung sounds are clear to auscultation, no rhonchi or wheezing. Objective - Vital Signs Vital signs: Vital Signs Temp 98.6 F 01/01/20 07:00 Pulse 82 01/01/20 12:33 Resp 18 01/01/20 11:16 BP 110/68 01/01/20 12:16 Pulse Ox 91 L 01/01/20 11:01 Intake & Output 12/31/19 01/01/20 01/01/20 18:59 06:59 18:59 Intake Total 200 200 150 Balance 200 200 150 Weight 134.5 kg Intake: IV 150 Oral 200 200 Other: Voiding Method Toilet # Voids 1 - Exam GENERAL EXAM: Alert, very pleasant, morbidly obese 44-year-old white female on 2 L of oxygen with pulse ox of 91% comfortable in no apparent distress. HEAD: Normocephalic/atraumatic. EYES: Normal reaction of pupils, equal size. Conjunctiva pink, sclera white. NOSE: Clear with pink turbinates. THROAT: No erythema or exudates. NECK: No masses, no JVD, no thyroid enlargement, no adenopathy. CHEST: No chest wall deformity. Symmetrical expansion. LUNGS: Equal air entry with diminished breath sounds at the bases, scattered wheezing CVS: Regular rate and rhythm, normal S1 and S2, no gallops, no murmurs, no rubs ABDOMEN: Soft, nontender. No hepatosplenomegaly, normal bowel sounds, no guarding or rigidity. EXTREMITIES: No clubbing, edema involving abdominal wall, and bilateral lower extremities, nonpitting, no cyanosis, 2+ pulses and upper and lower extremities. MUSCULOSKELETAL: Muscle strength and tone normal. SPINE: No scoliosis or deformity SKIN: No rashes CENTRAL NERVOUS SYSTEM: Alert and oriented -3. No focal deficits, tone is normal in all 4 extremities. PSYCHIATRIC: Alert and oriented -3. Appropriate affect. Intact judgment and insight. - Labs CBC & Chem 7: 12/30/19 07:13 01/01/20 07:36 Labs: Abnormal Lab Results - Last 24 Hours (Table) 01/01/20 Range/Units 07:36 Carbon Dioxide 36 H (22-30) mmol/L Assessment and Plan Plan: Assessment: #1. Dyspnea, related to fluid volume overload, pleural effusions, significant lower extremity edema and abdominal wall edema. Improving with diuresis #2. Acute hypoxic respiratory failure related to bilateral pleural effusions #3. Nonischemic cardiomyopathy, echocardiogram showed mild to moderate impairment of the LV function with EF of 40-45%, heart catheterization showed normal coronary arteries #4. Possible history of polycythemia vera or hemochromatosis, requiring therapeutic phlebotomy every 2-3 months #5. History of chronic bronchial asthma, unspecified, and a component of COPD, the severity of which is not known at this time #6. Hypertension #7. Current every day smoker, smoked a pack and a half a day for 17 years #8. History of large rectocele and uterine prolapse, status post hysterectomy #9. Morbid obesity with a BMI of 51.3 kg/m #10. Mildly elevated d-dimer, with CTA chest negative for pulmonary embolism Plan: Heart catheterization showed normal coronary arteries, patient continues on oral diuretics, lower extremity edema has significantly improved, breathing has improved. Vital signs are stable, no complaints of chest pain, continue inhalers. Vital signs are stable, cardiac medications per cardiology. Antic ipate discharge home in the next 24 hours. Will need outpatient follow-up in the office with Dr. Chauhan in 7-10 days. I performed a history & physical examination of the patient and discussed their management with my nurse practitioner, Helga Lara. I reviewed the nurse practitioner's note and agree with the documented findings and plan of care. Lung sounds are positive for scattered wheezes. The findings and the impression was discussed with the patient. I attest to the documentation by the nurse practitioner. Time with Patient: Less than 30
[2020-01-01] MEDS: FUROSEMIDE 40 MG TAB PO SCH ×2 (17:13→17:15)
[2020-01-01] MEDS: cloNIDine HCL 0.1 MG TAB PO SCH (21:13)
[2020-01-02] MEDS: ALBUTEROL NEBULIZED 2.5 MG/3 ML INHALATION SCH ×4 (07:37→22:03)
[2020-01-02] MEDS: SYMBICORT 160-4.5 MCG INHALER INHALATION SCH ×2 (07:38→22:03)
[2020-01-02] MEDS: FUROSEMIDE 40 MG TAB PO SCH ×2 (08:51→18:06)
[2020-01-02] MEDS: LISINOPRIL 5 MG TAB PO SCH (08:51)
[2020-01-02] MEDS: METOPROLOL TARTRATE 25 MG TAB PO SCH ×2 (08:51→20:00)
[2020-01-02] MEDS: ATORVASTATIN 40 MG TAB PO SCH (08:51)
--- NOTE | 2020-01-02 09:38 | XR ---
EXAMINATION TYPE: XR chest 1V DATE OF EXAM: 01/02/2020 HISTORY: chf. REFERENCE: Previous study dated 12/30/2019. FINDINGS: The study is moderately rotated. The heart is mildly enlarged. There is vascular congestion and mild edema. This has improved from pre vious. There continues to be right basilar airspace disease and this is essentially unchanged. There is a small right effusion. IMPRESSION: 1. CONTINUING RIGHT LOWER LOBE AIRSPACE DISEASE. 2. SMALL LEFT EFFUSION. 3. SUBTLE CHANGES OF CONGESTIVE HEART FAILURE.
[2020-01-02] MEDS ORDERED: FUROSEMIDE 10 MG/ML 4 ML VIAL IV STA (11:19)
--- NOTE | 2020-01-02 11:19 | P.PN ---
Subjective Progress Note Date: 01/02/20 Principal diagnosis: 44-year-old female patient of Dr. Gifty Lomeli with past medical history of chronic bronchial asthma, current smoker, morbid obesity, hypertension, and poss ibility of polycythemia vera or hemochromatosis requiring therapeutic phlebotomy, who presented to the emergency department on 12/29/2019 for evaluation of increasing shortness of breath, and significant bilateral lower extremity edema that started a little over 2 months ago, patient also complains of abdominal wall edema. Patient did come into the emergency department on 10/21/2019 with right-sided chest pain that was worsened with deep inspiration and no associated shortness of breath. CTA chest was obtained at that time showing no evidence of pulmonary embolism but did show small right pleural effusion with adjacent atelectasis and/or infiltrate, and mild diffuse bronchial wall thickening possible bronchitis, and scattered borderline sized and mildly enlarged mediastinal and right hilar lymph nodes, were likely reactive. Patient was diagnosed with pneumonia with pleurisy, was discharged home on oral Levaquin. Today's chest x-ray shows increasing right pleural effusion and right lower lobe infiltrate and atelectasis compared to last exam. CTA chest showed no evidence of pulmonary embolism, and stable small to moderate size right pleural effusion with right basilar atelectasis. EKG showed sinus tachycardia with a rate of 112 BPM. Patient was hypoxemic on presentation with pulse ox of 88% on room air, placed on supplemental oxygen, currently at 2 L with a pulse ox of 97%, blood pressure is 131/73, afebrile. Patient was given a dose of IV Lasix in the emergency department, echocardiogram was completed, showing [id number] impairment of the left ventricular systolic function and EF of 40-45%. Aortic and mitral valves were not well visualized, and there was trace mitral regurgitation, and right ventricular systolic pressure was less than 35 mmHg, IVC not well visualized. Lab work showed white blood cell count of 14.4, hemoglobin of 16.3, hematocrit of 50.5, d-dimer was 1.41, electro lites and renal profile were within normal limits, troponin was less than 0.012, LFTs were within normal limits, proBNP was 151. We were asked to see the patient in regards to bilateral pleural effusions. In addition patient has significant edema involving lower extremities and abdominal wall On 12/30/2019 patient seen in follow-up on general medical floor. She is down 3.7 kg since yesterday, lower extremity edema improved, shortness of breath has improved, remains on diuretics on Lasix 40 mg IV push 3 times daily. His labs have been reviewed, showing white blood cell count is 12.4, hemoglobin is 16.9, sodium is 138, potassium is 4.1, chloride is 95, CO2 38, BUN is 11, creatinine is 0.57. Pro-calcitonin was negative at 0.02. Coronavirus PCR was negative. Today's chest x-ray shows stable right sided consolidation and pleural effusion, and mild underlying venous congestion. Patient has had no fever or chills, she's been hemodynamically stable, she has not had any chest pain. On 12/31/2019 patient seen in follow-up on general medical floor. She continues to diurese, breathing easier, lower extremity and abdominal edema is improving, IV Lasix has been cut back to once daily. She is another 2 kg negative fluid balance over the last 24 hours. Cardiology has been consulted, added beta blockers, lisinopril, and possibility of cardiac catheterization is being considered for Saturday. On 01/01/2020 patient seen in follow-up on selective care unit, she status post heart catheterization today, she is resting comfortably in bed in reverse Trendelenburg position, is calm and comfortable, 2 L of oxygen her pulse ox is 91%, hemodynamically she is stable, no worsening dyspnea, no chest pain. Heart catheterization showed normal coronary arteries and elevated left ventricular end-diastolic pressure of 20 mmHg. No was no significant gradient across the aortic valve. And has been diuresed, she has been transitioned to oral diuretics to 40 mg twice daily, her lower extremity edema has significantly improved. Lung sounds are clear to auscultation, no rhonchi or wheezing. The patient is seen today 01/02/2020 in follow-up on the selective care unit. She is currently resting comfortably in bed. Awake and alert in no acute distress. Maintaining O2 saturation in the low 90s on 2 L/m per nasal cannula. She's afebrile. Hemodynamically stable. Chest x-ray continues to show pulmonary vascular congestion and mild edema. There is an improvement compared to previous. There is still right basilar airspace disease unchanged. Small left effusion. Heart catheterization revealed normal coronary arteries. Sodium 137. Potassium 4.8. Creatinine 0.56. She is continued on oral Lasix twice a day. Remains on Symbicort and Ventolin. Objective - Vital Signs Vital signs: Vital Signs Temp 96.9 F L 01/02/20 08:38 Pulse 93 01/02/20 08:38 Resp 18 01/02/20 08:38 BP 113/64 01/02/20 08:38 Pulse Ox 90 L 01/02/20 08:38 Intake & Output 01/01/20 01/02/20 01/02/20 18:59 06:59 18:59 Intake Total 750 540 120 Balance 750 540 120 Weight 132 kg Intake: IV 150 Oral 600 540 120 Other: Voiding Method Toilet # Voids 1 1 - Exam GENERAL EXAM: Alert, very pleasant, morbidly obese 44-year-old female patient on 2 L of oxygen with pulse ox of 90% comfortable in no apparent distress. HEAD: Normocephalic/atraumatic. EYES: Normal reaction of pupils, equal size. Conjunctiva pink, sclera white. NOSE: Clear with pink turbinates. THROAT: No erythema or exudates. NECK: No masses, no JVD, no thyroid enlargement, no adenopathy. CHEST: No chest wall deformity. Symmetrical expansion. LUNGS: Equal air entry with diminished breath sounds at the bases, bilateral crackles right greater than left, scattered wheezing CVS: Regular rate and rhythm, normal S1 and S2, no gallops, no murmurs, no rubs ABDOMEN: Soft, nontender. No hepatosplenomegaly, normal bowel sounds, no guarding or rigidity. EXTREMITIES: No clubbing, edema involving abdominal wall, and bilateral lower extremities, nonpitting, no cyanosis, 2+ pulses and upper and lower extremities. MUSCULOSKELETAL: Muscle strength and tone normal. SPINE: No scoliosis or deformity SKIN: No rashes CENTRAL NERVOUS SYSTEM: No focal deficits, tone is normal in all 4 extremities. PSYCHIATRIC: Alert and oriented -3. Appropriate affect. Intact judgment and insight. - Labs CBC & Chem 7: 12/30/19 07:13 01/01/20 07:36 Assessment and Plan Assessment: #1. Dyspnea, related to fluid volume overload, pleural effusions, significant lower extremity edema and abdominal wall edema. Improving with diuresis #2. Acute hypoxic respiratory failure related to bilateral pleural effusions #3. Nonischemic cardiomyopathy, echocardiogram showed mild to moderate i mpairment of the LV function with EF of 40-45%, heart catheterization showed normal coronary arteries #4. Possible history of polycythemia vera or hemochromatosis, requiring therapeutic phlebotomy every 2-3 months #5. History of chronic bronchial asthma, unspecified, and a component of COPD, the severity of which is not known at this time #6. Hypertension #7. Current every day smoker, smoked a pack and a half a day for 17 years #8. History of large rectocele and uterine prolapse, status post hysterectomy #9. Morbid obesity with a BMI of 51.3 kg/m #10. Mildly elevated d-dimer, with CTA chest negative for pulmonary embolism Plan: The patient was seen and evaluated by Dr. Tapia Chest x-ray and labs reviewed Give additional Lasix 40 mg IVP 1 Repeat chest x-ray in the a.m. If no significant improvement may consider a thoracentesis of the right chest We'll continue to follow I, the cosigning physician, performed a history & physical examination of the pa tient. Lungs sounds with basilar crackles right greater than left. Maintaining good O2 saturations in the 90s on 2 L/m per nasal cannula. I discussed the assessment and plan of care with my nurse practitioner, Heather Avila. I attest to the above note as dictated by her.
[2020-01-02] MEDS: ASPIRIN 81 MG PO SCH (11:50)
--- NOTE | 2020-01-02 12:16 | PN ---
PROGRESS NOTE Mrs. Ricketts is a 44-year-old female who presented with symptoms of dyspnea, underwent an echocardiogram that was reported showing ejection fraction 40 to 45%. She was evaluated by Dr. Walter. Because of her presentation, she underwent cardiac catheterization yesterday that revealed no evidence of obstructive coronary artery disease. She is doing well this morning. She denies any symptoms of chest pain. Her breathing has been stable. She denies any dizziness or palpitation. She has a known history of chronic bronchial asthma with morbid obesity and a history of smoking. She continues to be at this time on aspirin once a day, Lipitor 40 mg daily, clonidine 0.3 mg at bedtime, Lasix 40 mg twice a day, lisinopril 5 mg daily, metoprolol tartrate 25 mg twice a day. PHYSICAL EXAMINATION: Blood pressure 113/60 with a heart rate in 90s. LUNGS: Clear. HEART: Regular rate and rhythm, S1, S2. No S3. No rub. ABDOMEN: Soft, obese, nontender. EXTREMITIES: No significant edema. BUN and creatinine of 16 and 0.56 yesterday. IMPRESSION: 1. Cardiomyopathy. No evidence of obstructive coronary artery disease. 2. Chronic tobacco use. 3. Obesity. 4. Hypertension. 5. Episode of hypoxemia, improved. RECOMMENDATIONS: From the cardiac standpoint, she is stable. I would expect she should be able to be discharged home today and followed as an outpatient with Dr. Walter. NORRIS / AKSHAT: [id number] /
--- NOTE | 2020-01-02 15:40 | P.PN ---
Subjective Progress Note Date: 01/02/20 01/02/2020 Patient is seen in follow-up on the selective care unit. She is currently resting comfortably in bed. Patient reports that she has been refusing evening dose of Lasix due to concern about muscle cramps Awake and alert in no acute distress. Maintaining O2 saturation in the low 90s on 2 L/m per nasal cannula. She's afebrile. Hemodynamically stable. Chest x- ray continues to show pulmonary vascular congestion and mild edema. There is an improvement compared to previous. There is still right basilar airspace disease unchanged. Small left effusion. Heart catheterization revealed normal coronary arteries. Sodium 137. Potassium 4.8. Creatinine 0.56. She is continued on oral Lasix twice a day. Remains on Symbicort and Ventolin. Patient is recommended discharge dose of Lasix 40 mg IV 1 with plans to repeat chest x-ray in the morning; patient will be considered for possible thoracentesis if no improvement in symptoms Objective - Vital Signs Vital signs: Vital Signs Temp 98.6 F 01/02/20 12:00 Pulse 91 01/02/20 12:00 Resp 18 01/02/20 12:00 BP 102/65 01/02/20 12:00 Pulse Ox 93 L 01/02/20 12:00 Intake & Output 01/01/20 01/02/20 01/02/20 18:59 06:59 18:59 Intake Total 750 540 120 Balance 750 540 120 Weight 132 kg Intake: IV 150 Oral 600 540 120 Other: Voiding Method Toilet # Voids 1 1 - Exam General: Sitting up in chair, no acute distress Eyes: PERRL, EOMI, conjunctiva normal HENT: normocephalic, mucus membranes dry Neck: supple, no JVD Lungs: normal respiratory effort. Decreased entry at bases. No rhonchi, crackles or wheezing CV: Regular rate and rhythm, no murmur. Peripheral pulses 2+. Decreasing 1+ edema BLE Abdomen: softer, nondistended, no organomegaly, positive bowel sounds Skin: warm and dry. Neuro: A&Ox3, normal mood and affect - Labs CBC & Chem 7: 12/30/19 07:13 01/01/20 07:36 Assessment and Plan Assessment: 1. Acute hypoxic respiratory failure; secondary to new onset systolic CHF - Patient has subjectively been noncompliant to diuretic therapy; I had detailed discussion about patient's need for twice a day diuretic dosing at this time followed by possible tapering if patient remains stable 2. Acute systolic CHF; new onset - Echo shows an EF of 40-45%; patient remains on diuretic therapy; continue to monitor strict LUCI's, daily weights; continue with salt and fluid restricted diet 3. Pleural effusion; pulmonary service is following and recommending to diurese patient with an extra dose of IV Lasix followed by possible thoracentesis if no improvement in symptoms 4. Hypertension; continue with home dose of clonidine, lisinopril, Lasix and metoprolol with parameters 5. Chronic polycythemia; patient requires therapeutic phlebotomy every 2-3 months 6. Morbid obesity; counseling done on need for weight reduction 7. Hyperlipidemia; Lipitor 40 mg daily 8. Asthma; not in exacerbation; continue with albuterol nebulizer treatments 4 times a day as needed along with Symbicort inhaler with twice a day dosing DVT prophylaxis; SCDs CODE STATUS; full code
[2020-01-02] MEDS: cloNIDine HCL 0.1 MG TAB PO SCH (20:00)
--- NOTE | 2020-01-03 06:57 | XR ---
EXAMINATION TYPE: XR chest 1V portable DATE OF EXAM: 01/03/2020 HISTORY: chf. REFERENCE: Previous study dated 01/02/2020. FINDINGS: Heart size upper limits of normal. There is bibasilar airspace disease. There are small, bi lateral effusions. IMPRESSION: NO SIGNIFICANT INTERVAL CHANGE IN APPEARANCE OF THE CHEST.
[2020-01-03 07:38] VITALS: RESP 18
[2020-01-03] MEDS: FUROSEMIDE 40 MG TAB PO SCH (07:43)
[2020-01-03] MEDS: LISINOPRIL 5 MG TAB PO SCH (07:43)
[2020-01-03] MEDS: ASPIRIN 81 MG PO SCH (07:43)
[2020-01-03] MEDS: METOPROLOL TARTRATE 25 MG TAB PO SCH (07:43)
[2020-01-03] MEDS: ATORVASTATIN 40 MG TAB PO SCH (07:43)
[2020-01-03] MEDS: SYMBICORT 160-4.5 MCG INHALER INHALATION SCH (08:06)
[2020-01-03] MEDS: ALBUTEROL NEBULIZED 2.5 MG/3 ML INHALATION SCH ×2 (08:07→11:16)
--- NOTE | 2020-01-03 11:59 | P.PN ---
Subjective Progress Note Date: 01/03/20 Principal diagnosis: Acute exacerbation of systolic congestive heart failure 44-year-old female patient of Dr. Gifty Lomeli with past medical history of chronic bronchial asthma, current smoker, morbid obesity, hypertension, and possibility of polycythemia vera or hemochromatosis requiring therapeutic phlebotomy, who presented to the emergency department on 12/29/2019 for e valuation of increasing shortness of breath, and significant bilateral lower extremity edema that started a little over 2 months ago, patient also complains of abdominal wall edema. Patient did come into the emergency department on 10/21/2019 with right-sided chest pain that was worsened with deep inspiration and no associated shortness of breath. CTA chest was obtained at that time showing no evidence of pulmonary embolism but did show small right pleural effusion with adjacent atelectasis and/or infiltrate, and mild diffuse bronchial wall thickening possible bronchitis, and scattered borderline sized and mildly enlarged mediastinal and right hilar lymph nodes, were likely reactive. Patient was diagnosed with pneumonia with pleurisy, was discharged home on oral Levaquin. Today's chest x-ray shows increasing right pleural effusion and right lower lobe infiltrate and atelectasis compared to last exam. CTA chest showed no evidence of pulmonary embolism, and stable small to moderate size right pleural effusion with right basilar atelectasis. EKG showed sinus tachycardia with a rate of 112 BPM. Patient was hypoxemic on presentation with pulse ox of 88% on room air, placed on supplemental oxygen, currently at 2 L with a pulse ox of 97%, blood pressure is 131/73, afebrile. Patient was given a dose of IV Lasix in the emergency department, echocardiogram was completed, showing [id number] impairment of the left ventricular systolic function and EF of 40-45%. Aortic and mitral valves were not well visualized, and there was trace mitral regurgitation, and right ventricular systolic pressure was less than 35 mmHg, IVC not well visualized. Lab work showed white blood cell count of 14.4, hemoglobin of 16.3, hematocrit of 50.5, d-dimer was 1.41, electro lites and renal profile were within normal limits, troponin was less than 0.012, LFTs were within normal limits, proBNP was 151. We were asked to see the patient in regards to bilateral pleural effusions. In addition patient has significant edema involving lower extremities and abdominal wall On 12/30/2019 patient seen in follow-up on general medical floor. She is down 3.7 kg since yesterday, lower extremity edema improved, shortness of breath has improved, remains on diuretics on Lasix 40 mg IV push 3 times daily. His labs have been reviewed, showing white blood cell count is 12.4, hemoglobin is 16.9, sodium is 138, potassium is 4.1, chloride is 95, CO2 38, BUN is 11, creatinine is 0.57. Pro-calcitonin was negative at 0.02. Coronavirus PCR was negative. Today's chest x-ray shows stable right sided consolidation and pleural effusion, and mild underlying venous congestion. Patient has had no fever or chills, she's been hemodynamically stable, she has not had any chest pain. On 12/31/2019 patient seen in follow-up on general medical floor. She continues to diurese, breathing easier, lower extremity and abdominal edema is improving, IV Lasix has been cut back to once daily. She is another 2 kg negative fluid balance over the last 24 hours. Cardiology has been consulted, added beta bloc kers, lisinopril, and possibility of cardiac catheterization is being considered for Saturday. On 01/01/2020 patient seen in follow-up on selective care unit, she status post heart catheterization today, she is resting comfortably in bed in reverse Trendelenburg position, is calm and comfortable, 2 L of oxygen her pulse ox is 91%, hemodynamically she is stable, no worsening dyspnea, no chest pain. Heart catheterization showed normal coronary arteries and elevated left ventricular end-diastolic pressure of 20 mmHg. No was no significant gradient across the aortic valve. And has been diuresed, she has been transitioned to oral diuretics to 40 mg twice daily, her lower extremity edema has significantly improved. Lung sounds are clear to auscultation, no rhonchi or wheezing. The patient is seen today 01/02/2020 in follow-up on the selective care unit. She is currently resting comfortably in bed. Awake and alert in no acute distress. Maintaining O2 saturation in the low 90s on 2 L/m per nasal cannula. She's afebrile. Hemodynamically stable. Chest x-ray continues to show pulmona ry vascular congestion and mild edema. There is an improvement compared to previous. There is still right basilar airspace disease unchanged. Small left effusion. Heart catheterization revealed normal coronary arteries. Sodium 137. Potassium 4.8. Creatinine 0.56. She is continued on oral Lasix twice a day. Remains on Symbicort and Ventolin. The patient is seen today 01/03/2020 in follow-up on the selective care unit. She is awake and alert in no acute distress. Breathing easier today compared to yesterday. Maintaining O2 saturations in the 90s on room air. She's been afebrile. Hemodynamically stable. Maintained on Symbicort, albuterol, oral diuretics. Chest x-ray continues to show some bibasilar airspace disease and tiny bilateral effusions. Objective - Vital Signs Vital signs: Vital Signs Temp 98.0 F 01/03/20 07:36 Pulse 84 01/03/20 11:29 Resp 18 01/03/20 07:36 BP 114/76 01/03/20 07:36 Pulse Ox 93 L 01/03/20 07:36 Intake & Output 01/02/20 01/03/20 01/03/20 18:59 06:59 18:59 Intake Total 120 540 Balance 120 540 Weight 133.2 kg Intake: Oral 120 540 Other: Voiding Method Toilet Toilet # Voids 4 1 - Exam GENERAL EXAM: Alert, very pleasant, morbidly obese 44-year-old female patient on room air with pulse ox of 93% comfortable in no apparent distress. HEAD: Normocephalic/atraumatic. EYES: Normal reaction of pupils, equal size. Conjunctiva pink, sclera white. NOSE: Clear with pink turbinates. THROAT: No erythema or exudates. NECK: No masses, no JVD, no thyroid enlargement, no adenopathy. CHEST: No chest wall deformity. Symmetrical expansion. LUNGS: Equal air entry with diminished breath sounds at the bases, bilateral crackles right greater than left CVS: Regular rate and rhythm, normal S1 and S2, no gallops, no murmurs, no rubs ABDOMEN: Soft, nontender. No hepatosplenomegaly, normal bowel sounds, no guarding or rigidity. EXTREMITIES: No clubbing, edema involving abdominal wall, and bilateral lower extremities, nonpitting, no cyanosis, 2+ pulses and upper and lower extremities. MUSCULOSKELETAL: Muscle strength and tone normal. SPINE: No scoliosis or deformity SKIN: No rashes CENTRAL NERVOUS SYSTEM: No focal deficits, tone is normal in all 4 extremities. PSYCHIATRIC: Alert and oriented -3. Appropriate affect. Intact judgment and insight. - Labs CBC & Chem 7: 12/30/19 07:13 01/01/20 07:36 Assessment and Plan Assessment: #1. Dyspnea, related to fluid volume overload, pleural effusions, significant lower extremity edema and abdominal wall edema. Improved with diuretics. #2. Acute hypoxic respiratory failure related to bilateral pleural effusions, recovered and on room air #3. Nonischemic cardiomyopathy, echocardiogram showed mild to moderate impairment of the LV function with EF of 40-45%, heart catheterization showed normal coronary arteries #4. Possible history of polycythemia vera or hemochromatosis, requiring therapeutic phlebotomy every 2-3 months #5. History of chronic bronchial asthma, unspecified, and a component of COPD, the severity of which is not known at this time #6. Hypertension #7. Current every day smoker, smoked a pack and a half a day for 17 years #8. History of large rectocele and uterine prolapse, status post hysterectomy #9. Morbid obesity with a BMI of 51.3 kg/m #10. Mildly elevated d-dimer, with CTA chest negative for pulmonary embolism Plan: The patient was seen and evaluated by Dr. Tapia Chest x-ray reviewed She is cleared for discharge from the pulmonary standpoint Continue oral diuretics Follow-up in our office in 1-2 weeks' time I, the cosigning physician, performed a history & physical examination of the patient. Lungs sounds with basilar crackles. Maintaining good O2 saturations in the 90s on room air. I discussed the assessment and plan of care with my nurse practitioner, Heather Avila. I attest to the above note as dictated by her.
[2020-01-03 12:15] VITALS: BP 111/56; PULSE 72; TEMP 98.1
[2020-01-03] MEDS ORDERED: PNEUMOCOCCAL VACC-PNEUMOVAX 23 25 MCG/0.5 ML VIAL IM ONE (12:24)
--- NOTE | 2020-01-03 13:55 | P.DS ---
Providers Date of admission: 12/29/19 08:59 Expected date of discharge: 01/03/20 Attending physician: Young Jewell MD Consults: 12/29/19 08:59 Consult Physician Urgent Consulting Provider: Sydney Tapia Consult Reason/Comments: Dyspnea, pleural effusion Do you want consulting provider notified?: Yes 12/29/19 15:47 Consult Physician Routine Consulting Provider: Reed Arvizu Consult Reason/Comments: shortness of breath, fluid overload, impaired EF Do you want consulting provider notified?: Yes Primary care physician: Gifty Lomeli [facility] Course: 44-year-old female patient of Dr. Gifty Lomeli with past medical history of chronic bronchial asthma, current smoker, morbid obesity, hypertension, and possibility of polycythemia vera or hemochromatosis requiring therapeutic phlebotomy, who presented to the emergency department on 12/29/2019 for evaluation of increasing shortness of breath, and significant bilateral lower extremity edema that started a little over 2 months ago, patient also complains of abdominal wall edema. Patient did come into the emergency department on 10/21/2019 with right-sided chest pain that was worsened with deep inspiration and no associated shortness of breath. CTA chest was obtained at that time showing no evidence of pulmonary embolism but did show small right pleural effusion with adjacent atelectasis and/or infiltrate, and mild diffuse bronchial wall thickening possible bronchitis, and scattered borderline sized and mildly enlarged mediastinal and right hilar lymph nodes, were likely reactive. Patient was diagnosed with pneumonia with pleurisy, was discharged home on oral Levaquin. Today's chest x-ray shows increasing right pleural effusion and right lower lobe infiltrate and atelectasis compared to last exam. CTA chest showed no evidence of pulmonary embolism, and stable small to moderate size right pleural effusion with right basilar atelectasis. EKG showed sinus tachycardia with a rate of 112 BPM. Patient was hypoxemic on presentation with pulse ox of 88% on room air, placed on supplemental oxygen, currently at 2 L with a pulse ox of 97%, blood pressure is 131/73, afebrile. Patient was given a dose of IV Lasix in the emergency department, echocardiogram was completed, showing [id number] impairment of the left ventricular systolic function and EF of 40-45%. Aortic and mitral valves were not well visualized, and there was trace mitral regurgitation, and right ventricular systolic pressure was less than 35 mmHg, IVC not well visualized. Lab work showed white blood cell count of 14.4, hemoglobin of 16.3, hematocrit of 50.5, d-dimer was 1.41, electro lites and renal profile were within normal limits, troponin was less than 0.012, LFTs were within normal limits, proBNP was 151. We were asked to see the patient in regards to bilateral pleural effusions. In addition patient has significant edema involving lower extremities and abdominal wall On 12/30/2019 patient seen in follow-up on general medical floor. She is down 3.7 kg since yesterday, lower extremity edema improved, shortness of breath has improved, remains on diuretics on Lasix 40 mg IV push 3 times daily. His labs have been reviewed, showing white blood cell count is 12.4, hemoglobin is 16.9, sodium is 138, potassium is 4.1, chloride is 95, CO2 38, BUN is 11, creatinine is 0.57. Pro-calcitonin was negative at 0.02. Coronavirus PCR was negative. Today's chest x-ray shows stable right sided consolidation and pleural effusion, and mild underlying venous congestion. Patient has had no fever or chills, she 's been hemodynamically stable, she has not had any chest pain. On 12/31/2019 patient seen in follow-up on general medical floor. She continues to diurese, breathing easier, lower extremity and abdominal edema is improving, IV Lasix has been cut back to once daily. She is another 2 kg negative fluid balance over the last 24 hours. Cardiology has been consulted, added beta blockers, lisinopril, and possibility of cardiac catheterization is being considered for Saturday. On 01/01/2020 patient seen in follow-up on selective care unit, she status post heart catheterization today, she is resting comfortably in bed in reverse Trendelenburg position, is calm and comfortable, 2 L of oxygen her pulse ox is 91%, hemodynamically she is stable, no worsening dyspnea, no chest pain. Heart catheterization showed normal coronary arteries and elevated left ventricular end-diastolic pressure of 20 mmHg. No was no significant gradient across the aortic valve. And has been diuresed, she has been transitioned to oral diuretics to 40 mg twice daily, her lower extremity edema has significantly improved. Lung sounds are clear to auscultation, no rhonchi or wheezing. The patient is seen today 01/02/2020 in follow-up on the selective care unit. She is currently resting comfortably in bed. Awake and alert in no acute distress. Maintaining O2 saturation in the low 90s on 2 L/m per nasal cannula. She's afebrile. Hemodynamically stable. Chest x-ray continues to show pulmonary vascular congestion and mild edema. There is an improvement compared to previous. There is still right basilar airspace disease unchanged. Small left effusion. Heart catheterization revealed normal coronary arteries. Sodium 137. Potassium 4.8. Creatinine 0.56. She is continued on oral Lasix twice a day. Remains on Symbicort and Ventolin. The patient is seen today 01/03/2020 in follow-up on the selective care unit. She is awake and alert in no acute distress. Breathing easier today compared to yesterday. Maintaining O2 saturations in the 90s on room air. She's been afebrile. Hemodynamically stable. Maintained on Symbicort, albuterol, oral diuretics. Chest x-ray continues to show some bibasilar airspace disease and tiny bilateral effusions. Patient is cleared for discharge by pulmonary service and is recommended to continue with oral diuretic therapy and follow-up with pulmonary in 1-2 weeks Plan - Discharge Summary Discharge Rx Participant: No New Discharge Prescriptions: New Aspirin 81 mg PO DAILY chew Furosemide [Lasix] 40 mg PO BID@0900,1600 #60 tab Atorvastatin [Lipitor] 40 mg PO DAILY #30 tab Metoprolol Tartrate [Lopressor] 25 mg PO BID #60 tab Budesonide-Formot 160-4.5 Mcg [Symbicort 160-4.5 Mcg Inhaler] 2 puff INHALATION RT-BID #1 puff Albuterol Nebulized [Ventolin Nebulized] 2.5 mg INHALATION RT-QID #120 ml Lisinopril [Zestril] 5 mg PO DAILY #30 tab Continue Fluticasone/Vilanterol [Breo Ellipta 200-25 Mcg INH] 1 puff INHALATION RT- DAILY Albuterol Sulfate [Proair Hfa] 2 puff INHALATION RT-Q6H cloNIDine HCL 1.5 tab PO HS Albuterol Nebulized [Ventolin Nebulized] 2.5 mg INHALATION RT-Q6H PRN PRN Reason: SOB/WHEEZING/COUGH Discharge Medication List Albuterol Sulfate [Proair Hfa] 2 puff INHALATION RT-Q6H 10/10/18 [History] Fluticasone/Vilanterol [Breo Ellipta 200-25 Mcg INH] 1 puff INHALATION RT-DAILY 10/10/18 [History] cloNIDine HCL 1.5 tab PO HS 10/10/18 [History] Albuterol Nebulized [Ventolin Nebulized] 2.5 mg INHALATION RT-Q6H PRN 12/29/19 [History] Albuterol Nebulized [Ventolin Nebulized] 2.5 mg INHALATION RT-QID #120 ml 01/03/20 [Rx] Aspirin 81 mg PO DAILY chew 01/03/20 [Rx] Atorvastatin [Lipitor] 40 mg PO DAILY #30 tab 01/03/20 [Rx] Budesonide-Formot 160-4.5 Mcg [Symbicort 160-4.5 Mcg Inhaler] 2 puff INHALATION RT-BID #1 puff 01/03/20 [Rx] Furosemide [Lasix] 40 mg PO BID@0900,1600 #60 tab 01/03/20 [Rx] Lisinopril [Zestril] 5 mg PO DAILY #30 tab 01/03/20 [Rx] Metoprolol Tartrate [Lopressor] 25 mg PO BID #60 tab 01/03/20 [Rx] Follow up Appointment(s)/Referral(s): Sydney Tapia MD [STAFF PHYSICIAN] - 2 Weeks (PLEASE CALL TO MAKE APPOINTMENT CHEST X RAY OUTPATIENT PLANNED FOR FOLLOW UP) Gifty Lomeli DO [Primary Care Provider] - 1-2 days (PLEASE CALL TO MAKE APPOINTMENT) Mario Walter MD [STAFF PHYSICIAN] - 1 Week (PLEASE CALL TO MAKE APPOINTMENT) Patient Instructions/Handouts: Heart Failure (DC), Pleural Effusion (DC) Activity/Diet/Wound Care/Special Instructions: ACTIVITY TOLERATED HEART HEALTHY DIET Discharge Disposition: HOME SELF-CARE
== END 2020-01-03 13:30 | disposition home or self-care (01) | DRG 286 ==
LOC: EC 04:34 → 5NMEDONC 08:59 → 4SSUR 14:55 → 3SCARD 01-01 10:34
PROVIDERS: ADMIT Family Medicine; ATTEND Family Medicine
PROC: 4A023N7 Measurement of Cardiac Sampling and Pressure, Left Heart, Percutaneous Approach (ICD-10-PCS; principal; 2020-01-01 09:30)
PROC: B2111ZZ Fluoroscopy of Multiple Coronary Arteries using Low Osmolar Contrast (ICD-10-PCS; principal; 2020-01-01 09:30)
DX: I11.0 Hypertensive heart disease with heart failure (principal); J96.01 Acute respiratory failure with hypoxia; Z68.43 Body mass index [BMI] 50.0-59.9, adult; J98.11 Atelectasis; I50.23 Acute on chronic systolic (congestive) heart failure; I42.8 Other cardiomyopathies; Z87.01 Personal history of pneumonia (recurrent); D45 Polycythemia vera; E66.01 Morbid (severe) obesity due to excess calories; Z86.19 Personal history of other infectious and parasitic diseases; Z11.59 Encounter for screening for other viral diseases; E78.5 Hyperlipidemia, unspecified; E83.119 Hemochromatosis, unspecified; F17.210 Nicotine dependence, cigarettes, uncomplicated; R59.0 Localized enlarged lymph nodes; Z79.82 Long term (current) use of aspirin; Z79.899 Other long term (current) drug therapy; Z81.1 Family history of alcohol abuse and dependence; Z82.49 Family history of ischemic heart disease and other diseases of the circulatory system; J44.9 Chronic obstructive pulmonary disease, unspecified; Z90.710 Acquired absence of both cervix and uterus; T50.2X6A Underdosing of carbonic-anhydrase inhibitors, benzothiadiazides and other diuretics, initial encounter; Z91.128 Patient's intentional underdosing of medication regimen for other reason; Z90.49 Acquired absence of other specified parts of digestive tract; I34.0 Nonrheumatic mitral (valve) insufficiency; Z83.6 Family history of other diseases of the respiratory system; Z88.1 Allergy status to other antibiotic agents; Z88.5 Allergy status to narcotic agent
CPT/HCPCS: 36415; 71045; 71046; 71275; 76604; 80048; 80053; 80061; 83880; 84145; 84484; 85025; 85027; 85379; 85610; 85730; 90732; 93005; 93306; 93458; 94640; 94760; 96374; 96376; 99285

== ENCOUNTER 2020-05-12 17:35 | Emergency (ER) | payer BC ==
[2020-05-12 18:10] VITALS: RESP 18
[2020-05-12] MEDS ORDERED: LIDOCAINE 5% PATCH TOPICAL STA (18:57)
[2020-05-12] MEDS ORDERED: CYCLOBENZAPRINE 10MG STARTER 3 TAB BTL PO STA (18:57)
[2020-05-12] MEDS ORDERED: KETOROLAC 15 MG/ML 1 ML VIAL IM STA (18:57)
--- NOTE | 2020-05-12 18:58 | ED ---
Back Pain HPI - General Chief Complaint: Back Pain/Injury Stated Complaint: Back Pain Time Seen by Provider: 05/12/20 18:16 Source: patient Limitations: no limitations - History of Present Illness Initial Comments: 44 yo presenting for back pain. Pt states while watching tv chaning position experienced sudden onset of low back pain. midline. Denies radiation to legs, numbness of legs, weakness of leg, denies falls, trauma, IVDU, fevers, abdominal, chest or thoracic back pain. Denies loss of bowel bladder control urinary retention. Patient states she is able to walk but standing makes things worse. Patient denies additional complaints upon arrival patient appears nontoxic. Patietn states area is tender to touch. - Related Data Home Medications Medication Instructions Recorded Confirmed Albuterol Sulfate [Proair Hfa] 2 puff INHALATION RT-QID PRN 10/10/18 05/12/20 cloNIDine HCL 0.45 mg PO HS 10/10/18 05/12/20 Atorvastatin [Lipitor] 40 mg PO HS 05/12/20 05/12/20 Furosemide [Lasix] 40 mg PO BID 05/12/20 05/12/20 lisinopriL [Zestril] 10 mg PO DAILY 05/12/20 05/12/20 Previous Rx's Medication Instructions Recorded Albuterol Nebulized [Ventolin 2.5 mg INHALATION RT-QID #120 ml 01/03/20 Nebulized] Aspirin 81 mg PO DAILY chew 01/03/20 Budesonide-Formot 160-4.5 Mcg 2 puff INHALATION RT-BID #1 puff 01/03/20 [Symbicort 160-4.5 Mcg Inhaler] Metoprolol Tartrate [Lopressor] 25 mg PO BID #60 tab 01/03/20 Cyclobenzaprine [Flexeril] 10 mg PO TID PRN 3 Days #9 tab 05/12/20 predniSONE 50 mg PO DAILY 3 Days #3 tab 05/12/20 Allergies Allergy/AdvReac Type Severity Reaction Status Date / Time azithromycin Allergy Rash/Hives Verified 05/12/20 20:00 codeine Allergy Dyspnea Verified 05/12/20 20:00 Review of Systems ROS Statement: Those systems with pertinent positive or pertinent negative responses have been documented in the HPI. ROS Other: All systems not noted in ROS Statement are negative. 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 History of Any Multi-Drug Resistant Organisms: None Reported Past Surgical History: Appendectomy, Cholecystectomy, Hysterectomy, Uterine Ablation Additional Past Surgical History / Comment(s): NOVASURE Past Anesthesia/Blood Transfusion Reactions: Motion Sickness Additional Past Anesthesia/Blood Transfusion Reaction / Comment(s): HAS TMJ Past Psychological History: No Psychological Hx Reported Smoking Status: Never smoker Past Alcohol Use History: None Reported Past Drug Use History: None Reported - Past Family History Mother Family Medical History: Pulmonary Embolus Additional Family Medical History / Comment(s): Mother of a PE at the age o f 63 yrs. Father Family Medical History: Hypertension, Respiratory Disorder Additional Family Medical History / Comment(s): Father is an alcoholic. He had asbestos exposure/lungs affected. General Exam - General Exam Comments Initial Comments: General: The patient is awake and alert, in no distress Eye: Pupils are equal, round and reactive to light, extra-ocular movements are intact. No nystagmus. There is normal conjunctiva bilaterally. No signs of icterus. Ears, nose, mouth and throat: There are moist mucous membranes and no oral lesions. Neck: The neck is supple, there is no tenderness or JVD. Cardiovascular: There is a regular rate and rhythm. No murmur, rub or gallop is appreciated. Respiratory: Lungs are clear to auscultation, respirations are non-labored, breath sounds are equal. No wheezes, stridor, rales, or rhonchi. Gastrointestinal: Soft, non-distended, non-tender abdomen without masses or organomegaly noted. There is no rebound or guarding present. Musculoskeletal: normal inspection pain upper lumbar spine midline to palpation. winces. +2/5 patellar reflexes, no myoclonus or fasciculations Normal ROM of the lower extremity bilaterally, does incite some pain in the low back Strength 5/5 of the LE b/l. Sensation intact of the LE b/l including the saddle region. radial and DP pulses equal bilaterally 2+. Neurological: A&O x 3. CN II-XII intact, There are no obvious motor or sensory deficits. Coordination appears grossly intact. Speech is normal. Skin: Skin is warm and dry and no rashes or lesions are noted. Psychiatric: Cooperative, appropriate mood & affect, normal judgment. Limitations: no limitations Course Vital Signs 05/12/20 05/12/20 18:05 20:51 Temperature 98.4 F 98.2 F Pulse Rate 83 74 Respiratory 18 18 Rate Blood Pressure 188/64 144/84 O2 Sat by Pulse 96 98 Oximetry Medical Decision Making - Medical Decision Making Reproducible low back pain midline. X-ray negative for osseous lesions, compression fractures. Patient is neurovascularly intact. Suspect possible herniation. pt given symptomatic medications in ER will be discharged with 3 days of steroids/orthopedic f/u. recommend no nsaids with steroids only after completion of course. pt is to take tylenol and muscle relaxants/rest. Patient case discussed with DR. mcdonnell pt discharged appearing well. Disposition Clinical Impression: Back pain Disposition: HOME SELF-CARE Condition: Good Instructions (If sedation given, give patient instructions): Lumbar Disc Herniation (ED) Additional Instructions: Please use medication as discussed. Please follow-up with family doctor in the next 2 days, recommend orthopedic follow-up. Please return to emergency room if the symptoms increase or worsen or for any other concerns. Prescriptions: predniSONE 50 mg PO DAILY 3 Days #3 tab Is patient prescribed a controlled substance at d/c from ED?: No Referrals: Young Jewell MD [Primary Care Provider] - 1-2 days Jean Pierre Veliz DO [Doctor of Osteopathic Medicine] - 1-2 days Time of Disposition: 20:33
--- NOTE | 2020-05-12 20:22 | XR ---
PROCEDURE: XR lumbar spine - 3V DATE AND TIME: 05/12/2020 7:27 PM CLINICAL INDICATION: PHH; back pain TECHNIQUE: Department protocol COMPARISON: None FINDINGS: There is no fracture or malalignment. Mild multilevel degenerative facet and disc changes a re noted. The soft tissues are unremarkable. IMPRESSION: NO ACUTE PROCESS.
[2020-05-12 20:52] VITALS: BP 144/84; PULSE 74; TEMP 98.2
== END 2020-05-12 20:52 | disposition home or self-care (01) ==
LOC: EC 17:35
DX: M54.5 Low back pain (principal); J45.909 Unspecified asthma, uncomplicated; R71.8 Other abnormality of red blood cells; Z79.51 Long term (current) use of inhaled steroids; Z88.1 Allergy status to other antibiotic agents; Z88.5 Allergy status to narcotic agent
CPT/HCPCS: 72100; 96372; 99283; J1885

== ENCOUNTER → 2021-05-30 | Outpatient (CLI) | payer BC ==
[2021-05-31 00:15] LABS: African American GFR (CKD) 114.5 (60.0-200.0); Albumin/Globulin Ratio 1.36 (1.60-3.17); Anion Gap 12.8 mmol/L (4.00-12.00); BUN/Creat Ratio 20.03 Ratio (12.00-20.00); Blood Urea Nitrogen 14.7 mg/dL (9.0-27.0); Calcium 9.2 mg/dL (8.7-10.3); Carbon Dioxide 26.7 mmol/L (21.6-31.8); Globulin 2.9 g/dL (1.6-3.3); Non-African American GFR(CKD) 98.8 (60.0-200.0); Potassium 4.1 mmol/L (3.5-5.5); Total Bilirubin 0.3 mg/dL (0.30-1.20); Total Protein 6.9 g/dL (6.2-8.2)
[2021-05-31 00:33] LABS: HCT 57.1 % (37.2-46.3); HGB 17.7 g/dL (12.0-15.0); MCH 30.5 pg (27.0-32.0); MCV 98.4 fL (80.0-97.0); Mean Platelet Volume 10.5 fL (9.5-12.2); Platelet Count 299 X 10*3/uL (140-440); RDW 14.2 % (11.5-14.5); WBC 14.71 X 10*3/uL (4.50-10.00)
== END | disposition home or self-care (01) ==
LOC: LABWHC1 16:20
PROVIDERS: ATTEND Family Medicine
DX: D75.1 Secondary polycythemia (principal)
CPT/HCPCS: 36415; 80053; 85027

== ENCOUNTER 2022-12-22 18:39 | Emergency (ER) | payer BC ==
[2022-12-22 18:49] VITALS: TEMP 98.1
--- NOTE | 2022-12-22 20:43 | XR ---
EXAMINATION TYPE: XR chest 2V DATE OF EXAM: 12/22/2022 8:19 PM COMPARISON: e TECHNIQUE: XR chest 2V Frontal and lateral views of the chest. CLINICAL INDICATION:Female, 47 years old with history of difficulty breathing; FINDINGS: Lungs/Pleura: Versus subtle airspace opacities in the lower lobes. There is no evidence of pleural ef fusion, focal consolidation, or pneumothorax. Pulmonary vascularity: Unremarkable. Heart/mediastinum: Cardiomediastinal silhouette is unremarkable. Musculoskeletal: No acute osseous pathology. IMPRESSION: Right lower lobe airspace opacities and to lesser extent left lower lobe correlate for pneumonia
[2022-12-22 20:52] LABS: Appearance,Urine Clear (Clear); Bilirubin,Urine Negative (Negative); Blood,Urine Negative (Negative); Color,Urine Yellow; Glucose,Urine (UA) Negative (Negative); Ketones,Urine Negative (Negative); Leukocyte Esterase,Urine Negative (Negative); Nitrite,Urine Negative (Negative); PH, Urine 5.5 (5.0-8.0); Protein,Urine Negative (Negative); Specific Gravity,Urine 1.015 (1.001-1.035); Urobilinogen,Urine <2.0 mg/dL (<2.0)
[2022-12-22 22:06] LABS: ALT 20 U/L (4-34); AST 32 U/L (14-36); African American GFR (CKD) >90 (>60 ml/min/1.73 sqM); Alkaline Phosphatase 79 U/L (38-126); Blood Urea Nitrogen 15 mg/dL (7-17); Calcium 8.9 mg/dL (8.4-10.2); Carbon Dioxide 32 mmol/L (22-30); Chloride 94 mmol/L (98-107); Glucose 142 mg/dL (74-99); Non-African American GFR(CKD) >90 (>60 ml/min/1.73 sqM); Total Bilirubin 0.7 mg/dL (0.2-1.3); Total Protein 7.6 g/dL (6.3-8.2)
[2022-12-22 22:11] LABS: Anisocytosis Slight; Basophils # (A) 0.1 k/uL (0-0.2); Basophils % (A) 0 %; Eosinophils # (A) 0.5 k/uL (0-0.7); Eosinophils % (A) 3 %; HCT 49.1 % (34.0-46.0); HGB 16.2 gm/dL (11.4-16.0); Lymphocytes # (A) 1.3 k/uL (1.0-4.8); Lymphocytes % (A) 8 %; MCH 30.1 pg (25.0-35.0); MCV 91.1 fL (80.0-100.0); Mean Platelet Volume 8.3; Monocytes # (A) 1.1 k/uL (0-1.0); Monocytes % (A) 7 %; Neutrophils # (A) 13.5 k/uL (1.3-7.7); Neutrophils % (A) 81 %; Platelet Count 286 k/uL (150-450); RDW 17.1 % (11.5-15.5); WBC 16.7 k/uL (3.8-10.6)
[2022-12-22 22:16] LABS: Partial Thromboplastin Time 27.1 sec (22.0-30.0); Prothrombin Time 10.6 sec (9.0-12.0)
[2022-12-22 22:20] VITALS: BP 126/70
[2022-12-22 22:21] LABS: Anion Gap 8 mmol/L; Magnesium 1.9 mg/dL (1.6-2.3); Potassium 4.1 mmol/L (3.5-5.1); Sodium 134 mmol/L (137-145)
--- NOTE | 2022-12-22 23:06 | ED ---
General Adult HPI - General Source: patient, RN notes reviewed Mode of arrival: ambulatory Limitations: no limitations <Robyn Arechiga - Last Filed: 12/23/22 00:43> <Stuart Yip - Last Filed: 12/23/22 04:57> - General Chief complaint: Abdominal Pain Stated complaint: chest pain,SOB Time Seen by Provider: 12/22/22 19:04 - History of Present Illness Initial comments: 47-year-old female presents to the emergency department chief complaint of right flank pain 1 day. Patient states that the pain goes up to her right lung and around. She states that the pain is worse when she is lying down. She also reports shortness of breath. She states that she is typically short of breath due to her CHF and polycythemia and takes diuretics daily. She states that she has a "stronger" diuretic that she takes once a week which usually helps her shortness of breath but this time it has not. Denies fever, chills. Denies dysuria, hematuria, urinary frequency. She denies any change in her cough. Patient is a smoker. (Robyn Arechiga) - Related Data Home Medications Medication Instructions Recorded Confirmed Albuterol Sulfate [Proair Hfa] 2 puff INHALATION RT-QID PRN 10/10/18 05/12/20 cloNIDine HCL [Catapres] 0.45 mg PO HS 10/10/18 05/12/20 Atorvastatin [Lipitor] 40 mg PO HS 05/12/20 05/12/20 Furosemide [Lasix] 40 mg PO BID 05/12/20 05/12/20 lisinopriL [Zestril] 10 mg PO DAILY 05/12/20 05/12/20 Previous Rx's Medication Instructions Recorded Albuterol Nebulized [Ventolin 2.5 mg INHALATION RT-QID #120 ml 01/03/20 Nebulized] Aspirin 81 mg PO DAILY chew 01/03/20 Budesonide-Formot 160-4.5 Mcg 2 puff INHALATION RT-BID #1 puff 01/03/20 [Symbicort 160-4.5 Mcg Inhaler] Metoprolol Tartrate [Lopressor] 25 mg PO BID #60 tab 01/03/20 Cyclobenzaprine [Flexeril] 10 mg PO TID PRN 3 Days #9 tab 10/22/20 predniSONE 50 mg PO DAILY 3 Days #3 tab 05/12/20 Ibuprofen [Motrin] 600 mg PO Q8HR PRN #20 tab 12/23/22 Allergies Allergy/AdvReac Type Severity Reaction Status Date / Time azithromycin Allergy Rash/Hives Verified 12/22/22 18:49 codeine Allergy Dyspnea Verified 12/22/22 18:49 Review of Systems ROS Other: All systems not noted in ROS Statement are negative. <Robyn Arechiga - Last Filed: 12/23/22 00:43> ROS Other: All systems not noted in ROS Statement are negative. <Stuart Yip - Last Filed: 12/23/22 04:57> ROS Statement: Those systems with pertinent positive or pertinent negative responses have been documented in the HPI. 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 History of Any Multi-Drug Resistant Organisms: None Reported Past Surgical History: Appendectomy, Cholecystectomy, Hysterectomy, Uterine Ablation Additional Past Surgical History / Comment(s): NOVASURE Past Anesthesia/Blood Transfusion Reactions: Motion Sickness Additional Past Anesthesia/Blood Transfusion Reaction / Comment(s): HAS TMJ Past Psychological History: No Psychological Hx Reported Smoking Status: Never smoker Past Alcohol Use History: None Reported Past Drug Use History: None Reported - Past Family History Mother Family Medical History: Pulmonary Embolus Additional Family Medical History / Comment(s): Mother of a PE at the age of 63 yrs. Father Family Medical History: Hypertension, Respiratory Disorder Additional Family Medical History / Comment(s): Father is an alcoholic. He had asbestos exposure/lungs affected. <Robyn Arechiga - Last Filed: 12/23/22 00:43> General Exam Limitations: no limitations General appearance: alert, in no apparent distress Head exam: Present: atraumatic, normocephalic, normal inspection Eye exam: Present: normal appearance ENT exam: Present: normal exam, mucous membranes moist Neck exam: Present: normal inspection. Absent: tenderness, meningismus, lymphadenopathy Respiratory exam: Present: normal lung sounds bilaterally. Absent: respiratory distress, wheezes, rales, rhonchi, stridor Cardiovascular Exam: Present: regular rate, normal rhythm, normal heart sounds. Absent: systolic murmur, diastolic murmur, rubs, gallop, clicks GI/Abdominal exam: Present: soft, normal bowel sounds. Absent: distended, tenderness, guarding, rebound, rigid Extremities exam: Present: normal capillary refill, other (Bilateral lower extremity edema) Back exam: Present: normal inspection, tenderness (Right flank tenderness to palpation) Neurological exam: Present: alert, oriented X3 Psychiatric exam: Present: normal affect, normal mood Skin exam: Present: warm, dry, intact, normal color. Absent: rash <Robyn Arechiga - Last Filed: 12/23/22 00:43> Course Vital Signs 12/22/22 12/22/22 12/22/22 18:46 20:14 22:19 Temperature 98.1 F Pulse Rate 115 H 112 H 104 H Respiratory 22 16 16 Rate Blood Pressure 125/77 144/73 126/70 O2 Sat by Pulse 99 96 96 Oximetry 12/23/22 03:14 Temperature Pulse Rate 101 H Respiratory 20 Rate Blood Pressure O2 Sat by Pulse Oximetry Medical Decision Making - Lab Data Result diagrams: 12/22/22 20:14 12/22/22 20:14 <Robyn Arechiga - Last Filed: 12/23/22 00:43> - Lab Data Result diagrams: 12/22/22 20:14 12/22/22 20:14 <Stuart Yip - Last Filed: 12/23/22 04:57> - Medical Decision Making Was pt. sent in by a medical professional or institution ([facility], BINDER TECHNICIAN, urgent care, hospital, or retirement...) When possible be specific @ -[No] Did you speak to anyone other than the patient for history (EMS, parent, family, police, friend...)? What history was obtained from this source @ -[No] Did you review nursing and triage notes (agree or disagree)? Why? @ -[I reviewed and agree with nursing and triage notes] Were old charts reviewed (outside hosp., previous admission, EMS record, old EKG, old radiological studies, urgent care reports/EKG's, retirement records)? Report findings @ -[Prior laboratory studies were reviewed which are similar to the findings today] Differential Diagnosis (chest pain, altered mental status, abdominal pain women, abdominal pain men, vaginal bleeding, weakness, fever, dyspnea, syncope, headache, dizziness, GI bleed, back pain, seizure, CVA, palpatations, mental health, musculoskeletal)? @ -[Differential Dyspnea: Coronary syndrome, arrhythmia, tamponade, asthma, COPD, pulmonary embolism, pneumonia, pneumothorax, pulmonary effusion, anaphylaxis, diabetic ketoacidosis, flailed chest, pulmonary contusion, diaphragmatic rupture, anemia, neuromuscular, this is not meant to be an all-inclusive list. ] EKG interpreted by me (3pts min.). @ -[EKG at 1919 showed sinus tachycardia rate 116, TX 142, QRS 82, QTQTc [id number]] X-rays interpreted by me (1pt min.). @ -[X-ray of the chest showed right lower lobe airspace opacities] CT interpreted by me (1pt min.). @ -[None done] U/S interpreted by me (1pt. min.). @ -[None done] What testing was considered but not performed or refused? (CT, X-rays, U/S, labs)? Why? @ -[None] What meds were considered but not given or refused? Why? @ -[Pain medication was considered but the patient did not want any at this time] Did you discuss the management of the patient with other professionals (professionals i.e. , PA, BINDER TECHNICIAN, lab, RT, psych nurse, psychiatric social worker, meter shop superintendent, teacher, state patrol officer, pillowcase cutter)? Give summary @ -[No] Was smoking cessation discussed for >3mins.? @ -[No] Was critical care preformed (if so, how long)? @ -[No] Were there social determinants of health that impacted care today? How? (Homelessness, low income, unemployed, alcoholism, drug addiction, transportation, low edu. Level, literacy, decrease access to med. care, snf, rehab)? @ -[No] Was there de-escalation of care discussed even if they declined (Discuss DNR or withdrawal of care, Hospice)? DNR status @ -[No] What co-morbidities impacted this encounter? (DM, HTN, Smoking, COPD, CAD, Cancer, CVA, ARF, Chemo, Hep., AIDS, mental health diagnosis, sleep apnea, morbid obesity)? @ -[None] Was patient admitted / discharged? Hospital course, mention meds given and route, prescriptions, significant lab abnormalities, going to OR and other pertinent info. @ -[Patient presented to emergency department chief complaint of right flank pain that patient states radiates to her right lung. She states that she also has shortness of breath. She states that she typically takes a diuretic daily and "a stronger diuretic" weekly which typically takes care of her shortness of breath but did not this time. EKG shows sinus tachycardia with a rate of 116. Chest x-ray was obtained which showed right lower lobe airspace opacities. CBC was obtained which was consistent with her prior CBC and her history of polycythemia. UA was negative, troponin is negative, BNP is negative. D-dimer is pending at time of signout to Dr. Yip at 1248. ] Undiagnosed new problem with uncertain prognosis? @ -[No] Drug Therapy requiring intensive monitoring for toxicity (Heparin, Nitro, Insulin, Cardizem)? @ -[No] Were any procedures done? @ -[No] Diagnosis/symptom? @ -[default] Acute, or Chronic, or Acute on Chronic? @ -[default] Uncomplicated (without systemic symptoms) or Complicated (systemic symptoms)? @ -[default] Side effects of treatment? @ -[No] Exacerbation, Progression, or Severe Exacerbation? @ -[No] Poses a threat to life or bodily function? How? (Chest pain, [place], [place], pneumonia, PE, COPD, DKA, ARF, appy, cholecystitis, CVA, Diverticulitis, Homicidal, Suicidal, threat to staff... and all critical care pts) @ -[No] (Robyn Arechiga) - Lab Data Lab Results 12/22/22 12/22/22 12/22/22 Range/Units 20:14 20:14 20:14 WBC 16.7 H (3.8-10.6) k/uL RBC 5.40 (3.80-5.40) m/uL Hgb 16.2 H (11.4-16.0) gm/dL Hct 49.1 H (34.0-46.0) % MCV 91.1 (80.0-100.0) fL MCH 30.1 (25.0-35.0) pg MCHC 33.0 (31.0-37.0) g/dL RDW 17.1 H (11.5-15.5) % Plt Count 286 (150-450) k/uL MPV 8.3 Neutrophils % 81 % Lymphocytes % 8 % Monocytes % 7 % Eosinophils % 3 % Basophils % 0 % Neutrophils # 13.5 H (1.3-7.7) k/uL Lymphocytes # 1.3 (1.0-4.8) k/uL Monocytes # 1.1 H (0-1.0) k/uL Eosinophils # 0.5 (0-0.7) k/uL Basophils # 0.1 (0-0.2) k/uL Anisocytosis Slight PT 10.6 (9.0-12.0) sec INR 1.0 (<1.2) APTT 27.1 (22.0-30.0) sec D-Dimer (<0.60) mg/L FEU Sodium 134 L (137-145) mmol/L Potassium 4.1 (3.5-5.1) mmol/L Chloride 94 L (98-107) mmol/L Carbon Dioxide 32 H (22-30) mmol/L Anion Gap 8 mmol/L BUN 15 (7-17) mg/dL Creatinine 0.57 (0.52-1.04) mg/dL Est GFR (CKD-EPI)AfAm >90 (>60 ml/min/1.73 sqM) Est GFR (CKD-EPI)NonAf >90 (>60 ml/min/1.73 sqM) Glucose 142 H (74-99) mg/dL Plasma Lactic Acid Darshan (0.7-2.0) mmol/L Calcium 8.9 (8.4-10.2) mg/dL Magnesium 1.9 (1.6-2.3) mg/dL Total Bilirubin 0.7 (0.2-1.3) mg/dL AST 32 (14-36) U/L ALT 20 (4-34) U/L Alkaline Phosphatase 79 (38-126) U/L Troponin I (0.000-0.034) ng/mL NT-Pro-B Natriuret Pep pg/mL Total Protein 7.6 (6.3-8.2) g/dL Albumin 4.0 (3.5-5.0) g/dL Urine Color Urine Appearance (Clear) Urine pH (5.0-8.0) Ur Specific [place] (1.001-1.035) Urine Protein (Negative) Urine Glucose (UA) (Negative) Urine Ketones (Negative) Urine Blood (Negative) Urine Nitrite (Negative) Urine Bilirubin (Negative) Urine Urobilinogen (<2.0) mg/dL Ur Leukocyte Esterase (Negative) 12/22/22 12/22/22 12/22/22 Range/Units 20:14 20:14 20:14 WBC (3.8-10.6) k/uL RBC (3.80-5.40) m/uL Hgb (11.4-16.0) gm/dL Hct (34.0-46.0) % MCV (80.0-100.0) fL MCH (25.0-35.0) pg MCHC (31.0-37.0) g/dL RDW (11.5-15.5) % Plt Count (150-450) k/uL MPV Neutrophils % % Lymphocytes % % Monocytes % % Eosinophils % % Basophils % % Neutrophils # (1.3-7.7) k/uL Lymphocytes # (1.0-4.8) k/uL Monocytes # (0-1.0) k/uL Eosinophils # (0-0.7) k/uL Basophils # (0-0.2) k/uL Anisocytosis PT (9.0-12.0) sec INR (<1.2) APTT (22.0-30.0) sec D-Dimer (<0.60) mg/L FEU Sodium (137-145) mmol/L Potassium (3.5-5.1) mmol/L Chloride (98-107) mmol/L Carbon Dioxide (22-30) mmol/L Anion Gap mmol/L BUN (7-17) mg/dL Creatinine (0.52-1.04) mg/dL Est GFR (CKD-EPI)AfAm (>60 ml/min/1.73 sqM) Est GFR (CKD-EPI)NonAf (>60 ml/min/1.73 sqM) Glucose (74-99) mg/dL Plasma Lactic Acid Darshan 1.3 (0.7-2.0) mmol/L Calcium (8.4-10.2) mg/dL Magnesium (1.6-2.3) mg/dL Total Bilirubin (0.2-1.3) mg/dL AST (14-36) U/L ALT (4-34) U/L Alkaline Phosphatase (38-126) U/L Troponin I <0.012 (0.000-0.034) ng/mL NT-Pro-B Natriuret Pep pg/mL Total Protein (6.3-8.2) g/dL Albumin (3.5-5.0) g/dL Urine Color Yellow Urine Appearance Clear (Clear) Urine pH 5.5 (5.0-8.0) Ur Specific [place] 1.015 (1.001-1.035) Urine Protein Negative (Negative) Urine Glucose (UA) Negative (Negative) Urine Ketones Negative (Negative) Urine Blood Negative (Negative) Urine Nitrite Negative (Negative) Urine Bilirubin Negative (Negative) Urine Urobilinogen <2.0 (<2.0) mg/dL Ur Leukocyte Esterase Negative (Negative) 12/22/22 12/23/22 Range/Units 20:14 00:02 WBC (3.8-10.6) k/uL RBC (3.80-5.40) m/uL Hgb (11.4-16.0) gm/dL Hct (34.0-46.0) % MCV (80.0-100.0) fL MCH (25.0-35.0) pg MCHC (31.0-37.0) g/dL RDW (11.5-15.5) % Plt Count (150-450) k/uL MPV Neutrophils % % Lymphocytes % % Monocytes % % Eosinophils % % Basophils % % Neutrophils # (1.3-7.7) k/uL Lymphocytes # (1.0-4.8) k/uL Monocytes # (0-1.0) k/uL Eosinophils # (0-0.7) k/uL Basophils # (0-0.2) k/uL Anisocytosis PT (9.0-12.0) sec INR (<1.2) APTT (22.0-30.0) sec D-Dimer 2.53 H (<0.60) mg/L FEU Sodium (137-145) mmol/L Potassium (3.5-5.1) mmol/L Chloride (98-107) mmol/L Carbon Dioxide (22-30) mmol/L Anion Gap mmol/L BUN (7-17) mg/dL Creatinine (0.52-1.04) mg/dL Est GFR (CKD-EPI)AfAm (>60 ml/min/1.73 sqM) Est GFR (CKD-EPI)NonAf (>60 ml/min/1.73 sqM) Glucose (74-99) mg/dL Plasma Lactic Acid Darshan (0.7-2.0) mmol/L Calcium (8.4-10.2) mg/dL Magnesium (1.6-2.3) mg/dL Total Bilirubin (0.2-1.3) mg/dL AST (14-36) U/L ALT (4-34) U/L Alkaline Phosphatase (38-126) U/L Troponin I (0.000-0.034) ng/mL NT-Pro-B Natriuret Pep 66 pg/mL Total Protein (6.3-8.2) g/dL Albumin (3.5-5.0) g/dL Urine Color Urine Appearance (Clear) Urine pH (5.0-8.0) Ur Specific [place] (1.001-1.035) Urine Protein (Negative) Urine Glucose (UA) (Negative) Urine Ketones (Negative) Urine Blood (Negative) Urine Nitrite (Negative) Urine Bilirubin (Negative) Urine Urobilinogen (<2.0) mg/dL Ur Leukocyte Esterase (Negative) Disposition <Robyn Arechiga - Last Filed: 12/23/22 00:43> Is patient prescribed a controlled substance at d/c from ED?: No <Stuart Yip - Last Filed: 12/23/22 04:57> Clinical Impression: Flank pain, acute Disposition: HOME SELF-CARE Condition: Good Instructions (If sedation given, give patient instructions): Flank Pain (ED) Prescriptions: Ibuprofen [Motrin] 600 mg PO Q8HR PRN #20 tab PRN Reason: Pain Referrals: Young Jewell MD [Primary Care Provider] - 1-2 days
[2022-12-23 03:15] VITALS: PULSE 101; RESP 20
--- NOTE | 2022-12-23 04:34 | CT ---
EXAM: CT Angiography Chest With Intravenous Contrast CLINICAL HISTORY: ITS.REASON CT Reason: chest pain, possible PE TECHNIQUE: Axial computed tomographic angiography images of the chest with intravenous contrast. CTDI is 36 mGy and DLP is 1066.3 mGy-cm. This CT exam was performed using one or more of the following dose reduction techniques: automated exposure control, adjustment of the mA and/or kV according to patient size, and/or use of iterative reconstruction technique. MIP reconstructed images were created and reviewed. COMPARISON: Prior chest CT 12/29/2019. FINDINGS: Pulmonary arteries: Unremarkable. No pulmonary embolism. Aorta: No acute findings. No thoracic aortic aneurysm. Lungs: Scattered atelectasis in the right lung. Pleural space: Small right pleural effusion. Decreased compared to the prior. No pneumothorax. Heart: Unremarkable. No cardiomegaly. No significant pericardial effusion. No evidence of RV dysfunction. Bones/joints: No acute fracture. No dislocation. Soft tissues: Unremarkable. Lymph nodes: Small and borderline sized right hilar and right precarinal nodes, similar to the prior. Gallbladder and bile ducts: Cholecystectomy IMPRESSION: 1. No evidence of pulmonary embolism. 2. Small right pleural effusion. Decreased compared to the prior. Scattered atelectasis in the right lung.
== END 2022-12-23 06:15 | disposition home or self-care (01) ==
LOC: EC 18:39
DX: J90 Pleural effusion, not elsewhere classified (principal); R10.9 Unspecified abdominal pain; J45.909 Unspecified asthma, uncomplicated; Z79.899 Other long term (current) drug therapy; Z88.5 Allergy status to narcotic agent; Z88.8 Allergy status to other drugs, medicaments and biological substances; Z90.49 Acquired absence of other specified parts of digestive tract
CPT/HCPCS: 36415; 85379; 83880; 80053; 83605; 83735; 84484; 85025; 85610; 85730; 81003; 71046; 71275; 99284; Q9967; 93005

== ENCOUNTER 2023-01-10 15:22 | Inpatient (IN) | payer BC ==
[2023-01-10] MEDS ORDERED: IPRATROPIUM-ALBUTEROL 3 ML NEB INHALATION STA (16:25)
[2023-01-10] MEDS ORDERED: methylPREDNISolone SOD SUCCI 125 MG/2 ML VIAL IV STA (16:25)
--- NOTE | 2023-01-10 16:25 | ED ---
SOB HPI - General Chief Complaint: Shortness of Breath Stated Complaint: Diff Breathing Time Seen by Provider: 01/10/23 16:25 Source: patient Mode of arrival: ambulatory Limitations: no limitations - History of Present Illness Initial Comments: 47-year-old female with history of asthma and heart failure presenting with chief complaint of shortness of breath. Patient denies chest pain. Patient is a previous smoker. Patient states "I feel like my diuretic isn't working". She admits to slight lower extremity edema, states that she has not been urinating as frequently as she normally does on her diuretic. States that this shortness of breath feels similar to previous CHF exacerbation. No fevers or chills. No nausea, vomiting, abdominal pain. No cough, congestion, sore throat. - Related Data Home Medications Medication Instructions Recorded Confirmed Albuterol Sulfate [Proair Hfa] 2 puff INHALATION RT-QID PRN 10/10/18 01/10/23 Furosemide [Lasix] 40 mg PO DAILY 05/12/20 01/10/23 lisinopriL [Zestril] 10 mg PO HS 05/12/20 01/10/23 ALPRAZolam [Xanax] 0.5 mg PO DAILY PRN 01/10/23 01/10/23 Aspirin 81 mg PO HS 01/10/23 01/10/23 Metoprolol Tartrate [Lopressor] 25 mg PO HS 01/10/23 01/10/23 Montelukast [Singulair] 10 mg PO HS 01/10/23 01/10/23 Varenicline [Chantix Continuing 1 mg PO BID 01/10/23 01/10/23 Pack] metOLazone [Zaroxolyn] 2.5 mg PO NAM PRN 01/10/23 01/10/23 Previous Rx's Medication Instructions Recorded Albuterol Nebulized [Ventolin 2.5 mg INHALATION RT-QID #120 ml 01/03/20 Nebulized] Budesonide-Formot 160-4.5 Mcg 2 puff INHALATION RT-BID #1 puff 01/03/20 [Symbicort 160-4.5 Mcg Inhaler] Allergies Allergy/AdvReac Type Severity Reaction Status Date / Time azithromycin Allergy Rash/Hives Verified 01/10/23 16:24 codeine Allergy Dyspnea Verified 01/10/23 16:24 shellfish derived [Shellfish] Allergy Itching/Bryce Verified 01/10/23 19:18 h Review of Systems ROS Statement: Those systems with pertinent positive or pertinent negative responses have been documented in the HPI. ROS Other: All systems not noted in ROS Statement are negative. 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 History of Any Multi-Drug Resistant Organisms: None Reported Past Surgical History: Appendectomy, Cholecystectomy, Hysterectomy, Uterine Ablation Additional Past Surgical History / Comment(s): NOVASURE Past Anesthesia/Blood Transfusion Reactions: Motion Sickness Additional Past Anesthesia/Blood Transfusion Reaction / Comment(s): HAS TMJ Past Psychological History: No Psychological Hx Reported Smoking Status: Former smoker Past Alcohol Use History: None Reported Past Drug Use History: None Reported - Past Family History Mother Family Medical History: Pulmonary Embolus Additional Family Medical History / Comment(s): Mother of a PE at the age of 63 yrs. Father Family Medical History: Hypertension, Respiratory Disorder Additional Family Medical History / Comment(s): Father is an alcoholic. He had asbestos exposure/lungs affected. General Exam - General Exam Comments Initial Comments: Visual Physical Exam Vital signs reviewed General: Well-appearing, nontoxic, no acute distress. Head: Normocephalic, atraumatic Eyes: PERRLA, EOMI ENT: Airway patent Chest: Nonlabored breathing Skin: No visual rash, normal skin tone Neuro: Alert and oriented 3 Musculoskeletal: No gross abnormalities Limitations: no limitations General appearance: alert, in no apparent distress Head exam: Present: atraumatic, normocephalic, normal inspection Eye exam: Present: normal appearance, EOMI. Absent: scleral icterus, periorbital swelling Neck exam: Present: normal inspection, full ROM Respiratory exam: Present: wheezes, rales. Absent: respiratory distress, rhonchi, stridor Cardiovascular Exam: Present: regular rate, normal rhythm, normal heart sounds. Absent: systolic murmur, diastolic murmur, rubs, gallop, clicks Neurological exam: Present: alert, oriented X3, CN II-XII intact Psychiatric exam: Present: normal affect, normal mood Skin exam: Present: warm, dry, intact, normal color. Absent: rash Course Vital Signs 01/10/23 01/10/23 01/10/23 16:20 17:56 18:03 Temperature 97.9 F Pulse Rate 100 96 96 Respiratory 20 18 18 Rate Blood Pressure 132/84 O2 Sat by Pulse 93 L Oximetry 01/10/23 01/10/23 19:22 20:01 Temperature 98.4 F Pulse Rate 100 71 Respiratory 16 18 Rate Blood Pressure 110/84 O2 Sat by Pulse 93 L 95 Oximetry Medical Decision Making - Medical Decision Making Was pt. sent in by a medical professional or institution (, PA, [employer], urgent care, hospital, or group home...) When possible be specific @ -No Did you speak to anyone other than the patient for history (EMS, parent, family, police, friend...)? What history was obtained from this source @ -No Did you review nursing and triage notes (agree or disagree)? Why? @ -I reviewed and agree with nursing and triage notes Were old charts reviewed (outside hosp., previous admission, EMS record, old EKG, old radiological studies, urgent care reports/EKG's, group home records)? Report findings @ -No old charts were reviewed Differential Diagnosis (chest pain, altered mental status, abdominal pain women, abdominal pain men, vaginal bleeding, weakness, fever, dyspnea, syncope, headache, dizziness, GI bleed, back pain, seizure, CVA, palpatations, mental health, musculoskeletal)? @ -MDM Differential Dyspnea: Coronary syndrome, arrhythmia, tamponade, asthma, COPD, pulmonary embolism, pneumonia, pneumothorax, pulmonary effusion, anaphylaxis, diabetic ketoacidosis, flailed chest, pulmonary contusion, diaphragmatic rupture, anemia, neuromuscular this is not meant to be an all-inclusive list. EKG interpreted by me (3pts min.). @ -Sinus rhythm ventricular rate 97. AL interval 153. QRS 93. QT 335 QTC 390. No ischemic changes. X-rays interpreted by me (1pt min.). @ -CT shows prominent right pleural effusion. New opacity in the right mid lung zone CT interpreted by me (1pt min.). @ -None done U/S interpreted by me (1pt. min.). @ -None done What testing was considered but not performed or refused? (CT, X-rays, U/S, labs)? Why? @ -None What meds were considered but not given or refused? Why? @ -None Did you discuss the management of the patient with other professionals (professionals i.e. , PA, [employer], lab, RT, psych nurse, social contact worker, tire layer, teacher, chief diversity officer, case loader operator)? Give summary @ -Spoke with Dr. Jewell who accepts admission Was smoking cessation discussed for >3mins.? @ -No Was critical care preformed (if so, how long)? @ -No Were there social determinants of health that impacted care today? How? (Homelessness, low income, unemployed, alcoholism, drug addiction, transportation, low edu. Level, literacy, decrease access to med. care, [facility], rehab)? @ -No Was there de-escalation of care discussed even if they declined (Discuss DNR or withdrawal of care, Hospice)? DNR status @ -No What co-morbidities impacted this encounter? (DM, HTN, Smoking, COPD, CAD, Cancer, CVA, ARF, Chemo, Hep., AIDS, mental health diagnosis, sleep apnea, morbid obesity)? @ -Asthma, CHF Was patient admitted / discharged? Hospital course, mention meds given and route, prescriptions, significant lab abnormalities, going to OR and other pertinent info. @ -47-year-old female with history of asthma and CHF presenting with chief complaint of dyspnea. On physical examination diffuse wheezes are heard on au scultation. WBC 12. Troponin is negative. BNP 300. Chest x-ray shows pleural effusion and pneumonia. She is given 1 dose IV 40 mg of Lasix and 1 g of Rocephin. I spoke with Dr. Jewell who accepted admission and requests cardiology placed on consult. Patient is agreeable with this plan. I discussed this case with my attending Dr. Yip Undiagnosed new problem with uncertain prognosis? @ -No Drug Therapy requiring intensive monitoring for toxicity (Heparin, Nitro, Insulin, Cardizem)? @ -No Were any procedures done? @ -No Diagnosis/symptom? @ -CHF exacerbation Acute, or Chronic, or Acute on Chronic? @ -Acute on chronic Uncomplicated (without systemic symptoms) or Complicated (systemic symptoms)? @ -complicated Side effects of treatment? @ -No Exacerbation, Progression, or Severe Exacerbation? @ -Exacerbation Poses a threat to life or bodily function? How? (Chest pain, [place], [place], pneumonia, PE, COPD, DKA, ARF, appy, cholecystitis, CVA, Diverticulitis, Homicidal, Suicidal, threat to staff... and all critical care pts) @ -yes Diagnosis/symptom? @Pneumonia Acute, or Chronic, or Acute on Chronic? @Acute Uncomplicated (without systemic symptoms) or Complicated (systemic symptoms)? @Complicated Side effects of treatment? @ none Exacerbation, Progression, or Severe Exacerbation] @ no Poses a threat to life or bodily function? @Yes - Lab Data Result diagrams: 01/10/23 16:38 01/10/23 16:38 Lab Results 01/10/23 01/10/23 01/10/23 Range/Units 16:38 16:38 16:38 WBC 12.0 H (3.8-10.6) k/uL RBC 4.89 (3.80-5.40) m/uL Hgb 14.7 (11.4-16.0) gm/dL Hct 46.6 H (34.0-46.0) % MCV 95.3 (80.0-100.0) fL MCH 30.0 (25.0-35.0) pg MCHC 31.5 (31.0-37.0) g/dL RDW 15.9 H (11.5-15.5) % Plt Count 300 (150-450) k/uL MPV 7.4 Neutrophils % 78 % Lymphocytes % 9 % Monocytes % 7 % Eosinophils % 5 % Basophils % 1 % Neutrophils # 9.4 H (1.3-7.7) k/uL Lymphocytes # 1.0 (1.0-4.8) k/uL Monocytes # 0.8 (0-1.0) k/uL Eosinophils # 0.6 (0-0.7) k/uL Basophils # 0.1 (0-0.2) k/uL Hypochromasia Slight PT 10.1 (9.0-12.0) sec INR 1.0 (<1.2) APTT 25.4 (22.0-30.0) sec Sodium 139 (137-145) mmol/L Potassium 4.0 (3.5-5.1) mmol/L Chloride 102 (98-107) mmol/L Carbon Dioxide 29 (22-30) mmol/L Anion Gap 8 mmol/L BUN 14 (7-17) mg/dL Creatinine 0.45 L (0.52-1.04) mg/dL Est GFR (CKD-EPI)AfAm >90 (>60 ml/min/1.73 sqM) Est GFR (CKD-EPI)NonAf >90 (>60 ml/min/1.73 sqM) Glucose 116 H (74-99) mg/dL Calcium 8.3 L (8.4-10.2) mg/dL Total Bilirubin 0.3 (0.2-1.3) mg/dL AST 20 (14-36) U/L ALT 19 (4-34) U/L Alkaline Phosphatase 64 (38-126) U/L Troponin I (0.000-0.034) ng/mL NT-Pro-B Natriuret Pep pg/mL Total Protein 7.1 (6.3-8.2) g/dL Albumin 3.6 (3.5-5.0) g/dL 01/10/23 01/10/23 Range/Units 16:38 16:38 WBC (3.8-10.6) k/uL RBC (3.80-5.40) m/uL Hgb (11.4-16.0) gm/dL Hct (34.0-46.0) % MCV (80.0-100.0) fL MCH (25.0-35.0) pg MCHC (31.0-37.0) g/dL RDW (11.5-15.5) % Plt Count (150-450) k/uL MPV Neutrophils % % Lymphocytes % % Monocytes % % Eosinophils % % Basophils % % Neutrophils # (1.3-7.7) k/uL Lymphocytes # (1.0-4.8) k/uL Monocytes # (0-1.0) k/uL Eosinophils # (0-0.7) k/uL Basophils # (0-0.2) k/uL Hypochromasia PT (9.0-12.0) sec INR (<1.2) APTT (22.0-30.0) sec Sodium (137-145) mmol/L Potassium (3.5-5.1) mmol/L Chloride (98-107) mmol/L Carbon Dioxide (22-30) mmol/L Anion Gap mmol/L BUN (7-17) mg/dL Creatinine (0.52-1.04) mg/dL Est GFR (CKD-EPI)AfAm (>60 ml/min/1.73 sqM) Est GFR (CKD-EPI)NonAf (>60 ml/min/1.73 sqM) Glucose (74-99) mg/dL Calcium (8.4-10.2) mg/dL Total Bilirubin (0.2-1.3) mg/dL AST (14-36) U/L ALT (4-34) U/L Alkaline Phosphatase (38-126) U/L Troponin I <0.012 (0.000-0.034) ng/mL NT-Pro-B Natriuret Pep 300 pg/mL Total Protein (6.3-8.2) g/dL Albumin (3.5-5.0) g/dL Disposition Clinical Impression: Acute systolic CHF (congestive heart failure), NYHA class 1, Dyspnea Disposition: ADMITTED IP TO THIS HOSP Condition: Fair Time of Disposition: 19:02
[2023-01-10 17:01] LABS: Basophils # (A) 0.1 k/uL (0-0.2); Basophils % (A) 1 %; Eosinophils # (A) 0.6 k/uL (0-0.7); Eosinophils % (A) 5 %; HCT 46.6 % (34.0-46.0); HGB 14.7 gm/dL (11.4-16.0); Hypochromasia Slight; Lymphocytes % (A) 9 %; MCHC 31.5 g/dL (31.0-37.0); MCV 95.3 fL (80.0-100.0); Mean Platelet Volume 7.4; Monocytes # (A) 0.8 k/uL (0-1.0); Monocytes % (A) 7 %; Neutrophils # (A) 9.4 k/uL (1.3-7.7); Neutrophils % (A) 78 %; Platelet Count 300 k/uL (150-450); RBC 4.89 m/uL (3.80-5.40); RDW 15.9 % (11.5-15.5)
[2023-01-10 17:05] LABS: Partial Thromboplastin Time 25.4 sec (22.0-30.0); Prothrombin Time 10.1 sec (9.0-12.0)
[2023-01-10 17:40] LABS: ALT 19 U/L (4-34); AST 20 U/L (14-36); African American GFR (CKD) >90 (>60 ml/min/1.73 sqM); Albumin 3.6 g/dL (3.5-5.0); Alkaline Phosphatase 64 U/L (38-126); Anion Gap 8 mmol/L; Blood Urea Nitrogen 14 mg/dL (7-17); Calcium 8.3 mg/dL (8.4-10.2); Carbon Dioxide 29 mmol/L (22-30); Chloride 102 mmol/L (98-107); Glucose 116 mg/dL (74-99); Non-African American GFR(CKD) >90 (>60 ml/min/1.73 sqM); Sodium 139 mmol/L (137-145); Total Bilirubin 0.3 mg/dL (0.2-1.3); Total Protein 7.1 g/dL (6.3-8.2)
--- NOTE | 2023-01-10 18:28 | XR ---
EXAMINATION: XR chest 2V: 01/10/2023 4:58 PM CLINICAL INDICATION: difficulty breathing TECHNIQUE: Departmental protocol COMPARISON: 12/22/2022 chest radiographs FINDINGS: There is interval worsening in the overall lung inflation pattern since 12/22/2022. A prominent right pleural effusion has developed atelectasis. Meanwhile, the bibasilar airspace filli ng processes remain, right greater than left. In addition, there is a new added opacity in the right midlung zone, just cephalad to the minor fissure, similar to the airspace filling processes and presu mably representing multifocal bronchopneumonia There is no pneumothorax or other abnormal gas collection. IMPRESSION: Interval worsening.
[2023-01-10] MEDS ORDERED: cefTRIAXone IN SWFI 1,000 MG/10 ML SYRINGE IVP STA (18:56)
[2023-01-10] MEDS ORDERED: FUROSEMIDE 10 MG/ML 4 ML VIAL IV STA (18:56)
[2023-01-10] MEDS ORDERED: NALOXONE 0.4 MG/ML 1 ML VIAL IV PRN (18:59)
[2023-01-10] MEDS ORDERED: ALPRAZolam 0.5 MG TAB PO PRN (20:45)
[2023-01-10] MEDS ORDERED: ALBUTEROL NEBULIZED 2.5 MG/3 ML INHALATION PRN (20:45)
[2023-01-10] MEDS: METOPROLOL TARTRATE 25 MG TAB PO SCH (21:21)
[2023-01-10] MEDS: MONTELUKAST 10 MG TAB PO SCH (21:21)
[2023-01-10] MEDS: lisinopriL 10 MG TAB PO SCH (21:22)
[2023-01-10] MEDS: ASPIRIN 81 MG PO SCH (21:22)
[2023-01-10] MEDS: ACETAMINOPHEN TAB 325 MG TAB PO PRN (22:38)
[2023-01-11] MEDS: ALBUTEROL NEBULIZED 2.5 MG/3 ML INHALATION SCH ×4 (08:00→18:31)
[2023-01-11] MEDS: SYMBICORT 160-4.5 MCG INHALER INHALATION SCH ×2 (08:00→18:36)
[2023-01-11] MEDS: FUROSEMIDE 10 MG/ML 4 ML VIAL IV SCH (09:14)
--- NOTE | 2023-01-11 09:28 | P.CRDCN ---
History of Present Illness History of present illness: HISTORY OF PRESENT ILLNESS: This is a 47-year-old female with a past medical history significant for hypertension, asthma, nicotine dependence, morbid obesity, nonischemic cardiomyopathy with most recent ejection fraction of 45%, and congestive heart failure. Patient does not follow with a clinical services director. We have been asked to see the patient in consultation for congestive heart failure. Patient examined at the bedside. Patient presented to hospitals a chief complaint of shortness of breath and lower extremity edema. Patient was found to be in acute congestive heart failure. She was started on IV Lasix. She denies any chest pain or pressure. Denies any dizziness or lightheadedness her denies any fever or chills. Vital signs are stable this morning. * EKG reveals sinus mechanism with no signs of acute ischemia * Laboratory data: WBC 12.0. Hemoglobin 14.7. Platelet count 300. Sodium 139. Potassium 4.0. B UN 14. Creatinine 0.45. ProBNP 300. Troponin negative 1 * Current home cardiac medications include lisinopril 10 mg a night, aspirin 81 mg daily, Lasix 40 mg daily, metoprolol tartrate 25 mg at night, and Zaroxolyn 2.5 mg on Saturday as needed * Most recent echocardiogram obtained in December 2019 revealed ejection fraction 40-45%, trace MR, and trace TR * Cardiac catheterization history: December 2019 revealing normal coronary arteries and elevated left sided filling pressures. REVIEW OF SYSTEMS: At the time of my exam: CONSTITUTIONAL: Denies fever or chills. HEENT: Denies blurred vision, vision changes, or eye pain. Denies hemoptysis CARDIOVASCULAR: Denies chest pain. Denies orthopnea. Denies PND. Denies palpitations RESPIRATORY: Denies shortness of breath. GASTROINTESTINAL: Denies abdominal pain. Denies nausea or vomiting. HEMATOLOGIC: Denies bleeding disorders. GENITOURINARY: Denies any blood in urine. SKIN: Denies pruitis. Denies rash. PHYSICAL EXAM: VITAL SIGNS: Reviewed. GENERAL: Well-developed in no acute distress. HEENT: Head is normocephalic. Pupils are equal, round. Sclerae anicteric. Mucous membranes of the mouth are moist. Neck supple. No JVD or thyromegaly LUNGS: Respirations even and unlabored. Lungs essentially clear to auscultation bilaterally, diminished. HEART: Regular rate and rhythm. S1 and S2 heard. ABDOMEN: Soft. Nondistended. Nontender. EXTREMITIES: Normal range of motion. No clubbing or cyanosis. Peripheral pulses intact. 1+ bilateral lower extremity edema NEUROLOGIC: Awake and alert. Oriented x 3. ASSESSMENT: Shortness of breath Acute on chronic heart failure with reduced EF, 40-45% Nonischemic cardiomyopathy Normal coronary arteries, per cardiac catheterization in 2019 Hypertension Asthma Nicotine dependence Morbid obesity PLAN: Obtain 2-D echo to assess cardiac structure and function Resume home cardiac medications Continue IV Lasix Daily weights, accurate I&O, monitor kidney function Further recommendations pending patient's course Nurse practitioner note has been reviewed by physician. Signing provider agrees with the documented findings, assessment, and plan of care. 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 History of Any Multi-Drug Resistant Organisms: None Reported Past Surgical History: Appendectomy, Cholecystectomy, Hysterectomy, Uterine Ablation Additional Past Surgical History / Comment(s): NOVASURE Past Anesthesia/Blood Transfusion Reactions: Motion Sickness Additional Past Anesthesia/Blood Transfusion Reaction / Comment(s): HAS TMJ Past Psychological History: No Psychological Hx Reported Smoking Status: Former smoker Past Alcohol Use History: None Reported Past Drug Use History: None Reported - Past Family History Mother Family Medical History: Pulmonary Embolus Additional Family Medical History / Comment(s): Mother of a PE at the age of 63 yrs. Father Family Medical History: Hypertension, Respiratory Disorder Additional Family Medical History / Comment(s): Father is an alcoholic. He had asbestos exposure/lungs affected. Medications and Allergies Home Medications Medication Instructions Recorded Confirmed Type Albuterol Sulfate [Proair Hfa] 2 puff INHALATION RT-QID PRN 10/10/18 01/10/23 History Albuterol Nebulized [Ventolin 2.5 mg INHALATION RT-QID #120 ml 01/03/20 01/10/23 Rx Nebulized] Budesonide-Formot 160-4.5 Mcg 2 puff INHALATION RT-BID #1 puff 01/03/20 01/10/23 Rx [Symbicort 160-4.5 Mcg Inhaler] Furosemide [Lasix] 40 mg PO DAILY 05/12/20 01/10/23 History lisinopriL [Zestril] 10 mg PO HS 05/12/20 01/10/23 History ALPRAZolam [Xanax] 0.5 mg PO DAILY PRN 01/10/23 01/10/23 History Aspirin 81 mg PO HS 01/10/23 01/10/23 History Metoprolol Tartrate [Lopressor] 25 mg PO HS 01/10/23 01/10/23 History Montelukast [Singulair] 10 mg PO HS 01/10/23 01/10/23 History Varenicline [Chantix Continuing 1 mg PO BID 01/10/23 01/10/23 History Pack] metOLazone [Zaroxolyn] 2.5 mg PO NAM PRN 01/10/23 01/10/23 History Allergies Allergy/AdvReac Type Severity Reaction Status Date / Time azithromycin Allergy Rash/Hives Verified 01/10/23 16:24 codeine Allergy Dyspnea Verified 01/10/23 16:24 shellfish derived [Shellfish] Allergy Itching/Bryce Verified 01/10/23 19:18 h Physical Exam Vitals: Vital Signs Temp Pulse Pulse Resp BP BP Pulse Ox 01/11/23 08:11 84 01/11/23 08:00 81 95 01/11/23 06:40 97.6 F 83 20 125/76 96 01/11/23 02:18 98.6 F 85 16 112/67 98 01/10/23 20:30 98.4 F 99 20 146/84 97 01/10/23 20:01 98.4 F 71 18 110/84 95 01/10/23 19:22 100 16 93 L 01/10/23 18:03 96 18 01/10/23 17:56 96 18 01/10/23 16:20 97.9 F 100 20 132/84 93 L Intake and Output 01/10/23 01/11/23 01/11/23 22:59 06:59 14:59 Intake Total 693 Output Total 0 Balance 0 693 Intake: Oral 693 Output: Emesis 0 Other: # Voids 2 Weight 134.717 kg Results 01/10/23 16:38 01/10/23 16:38 Cardiac Enzymes 01/10/23 01/10/23 Range/Units 16:38 16:38 AST 20 (14-36) U/L Troponin I <0.012 (0.000-0.034) ng/mL Coagulation 01/10/23 Range/Units 16:38 PT 10.1 (9.0-12.0) sec APTT 25.4 (22.0-30.0) sec CBC 01/10/23 Range/Units 16:38 WBC 12.0 H (3.8-10.6) k/uL RBC 4.89 (3.80-5.40) m/uL Hgb 14.7 (11.4-16.0) gm/dL Hct 46.6 H (34.0-46.0) % Plt Count 300 (150-450) k/uL Comprehensive Metabolic Panel 01/10/23 Range/Units 16:38 Sodium 139 (137-145) mmol/L Potassium 4.0 (3.5-5.1) mmol/L Chloride 102 (98-107) mmol/L Carbon Dioxide 29 (22-30) mmol/L BUN 14 (7-17) mg/dL Creatinine 0.45 L (0.52-1.04) mg/dL Glucose 116 H (74-99) mg/dL Calcium 8.3 L (8.4-10.2) mg/dL AST 20 (14-36) U/L ALT 19 (4-34) U/L Alkaline Phosphatase 64 (38-126) U/L Total Protein 7.1 (6.3-8.2) g/dL Albumin 3.6 (3.5-5.0) g/dL Current Medications Generic Name Dose Route Start Last Admin Trade Name Freq PRN Reason Stop Dose Admin Acetaminophen 650 mg 01/10/23 18:59 01/10/23 22:38 Acetaminophen Tab 325 Mg Tab PO 650 mg Q6HR PRN Administration Mild Pain or Fever > 100.5 Albuterol Sulfate 2.5 mg 01/11/23 08:00 01/11/23 08:00 Albuterol Nebulized 2.5 Mg/3 Ml INHALATION 2.5 mg RT-QID QI Administration Albuterol Sulfate 2.5 mg 01/10/23 20:45 Albuterol Nebulized 2.5 Mg/3 Ml INHALATION RT-QID PRN Shortness Of Breath Alprazolam 0.5 mg 01/10/23 20:45 Alprazolam 0.5 Mg Tab PO DAILY PRN Anxiety Aspirin 81 mg 01/10/23 21:00 01/10/23 21:22 Aspirin 81 Mg PO 81 mg HS QI Administration Budesonide/Formoterol Fumarate 2 puff 01/11/23 08:00 01/11/23 08:00 Symbicort 160-4.5 Mcg Inhaler INHALATION 2 puff RT-BID QI Administration Furosemide 40 mg 01/11/23 09:00 01/11/23 09:14 Furosemide 10 Mg/Ml 4 Ml Vial IV 40 mg DAILY QI Administration Lisinopril 10 mg 01/10/23 21:00 01/10/23 21:22 Lisinopril 10 Mg Tab PO 10 mg HS QI Administration Metoprolol Tartrate 25 mg 01/10/23 21:00 01/10/23 21:21 Metoprolol Tartrate 25 Mg Tab PO 25 mg HS QI Administration Montelukast Sodium 10 mg 01/10/23 21:00 01/10/23 21:21 Montelukast 10 Mg Tab PO 10 mg HS QI Administration Naloxone HCl 0.2 mg 01/10/23 18:59 Naloxone 0.4 Mg/Ml 1 Ml Vial IV Q2M PRN Opioid Reversal Varenicline [Chantix 1 mg 01/11/23 09:00 Continuing Pack] 1 PO Mg Tab BID [facility] [place] Intake and Output 01/10/23 01/11/23 01/11/23 22:59 06:59 14:59 Intake Total 693 Output Total 0 Balance 0 693 Intake: Oral 693 Output: Emesis 0 Other: # Voids 2 Weight 134.717 kg 01/10/23 16:38 01/10/23 16:38
[2023-01-11] MEDS: VARENICLINE 1 MG PO SCH ×2 (10:16→20:57)
--- NOTE | 2023-01-11 10:51 | P.HPIM ---
History of Present Illness H&P Date: 01/11/23 Chief Complaint: Shortness of breath This is a 47-year-old female with past medical history significant for asthma/COPD, [id number] in September 2022, morbid obesity and hypertension who presented with worsening exertional shortness of breath over the last 1-2 weeks, bilateral lower extremity edema. Chest x-ray reported interval worsening, no pneumothorax or other abnormal gas collection. Prominent right pleural effusion, atelectasis, bibasilar airspace filling processes remain right greater than left, new right mid lung opacity, cephalad to the minor fissure. Prior CTA on 12/23 reported scattered atelectasis in the right lung. Denies chills ,congestion or cough. Denies sick contacts. Afebrile, WBC 12. Received a dose of Rocephin in the ER. Denies chest pain, palpitations. EKG sinus rhythm, troponin negative 1. Denies any lightheadedness dizziness or focal deficits. Currently maintaining O2 sats in the 90s on 3 L nasal cannula. Hemoglobin 14.7, platelets 300, INR 1. Electrolytes within normal limits, BUN 14, creatinine 0.45, bicarb 29. ProBNP 300. IV push diuretics initiated in the ER. Cardiology consult in place, recommendations pending. Review of Systems Review of Systems All systems: negative Constitutional: Denies chills, Denies fever Eyes: denies blurred vision, denies pain Ears, nose, mouth and throat: Denies headache, Denies sore throat Cardiovascular: Reports dyspnea on exertion, denies orthopnea. Reports edema, Denies chest pain, palpitations. 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 History of Any Multi-Drug Resistant Organisms: None Reported Past Surgical History: Appendectomy, Cholecystectomy, Hysterectomy, Uterine Ablation Additional Past Surgical History / Comment(s): NOVASURE Past Anesthesia/Blood Transfusion Reactions: Motion Sickness Additional Past Anesthesia/Blood Transfusion Reaction / Comment(s): HAS TMJ Past Psychological History: No Psychological Hx Reported Smoking Status: Former smoker Past Alcohol Use History: None Reported Past Drug Use History: None Reported - Past Family History Mother Family Medical History: Pulmonary Embolus Additional Family Medical History / Comment(s): Mother of a PE at the age of 63 yrs. Father Family Medical History: Hypertension, Respiratory Disorder Additional Family Medical History / Comment(s): Father is an alcoholic. He had asbestos exposure/lungs affected. Medications and Allergies Home Medications Medication Instructions Recorded Confirmed Type Albuterol Sulfate [Proair Hfa] 2 puff INHALATION RT-QID PRN 10/10/18 01/10/23 History Albuterol Nebulized [Ventolin 2.5 mg INHALATION RT-QID #120 ml 01/03/20 01/10/23 Rx Nebulized] Budesonide-Formot 160-4.5 Mcg 2 puff INHALATION RT-BID #1 puff 01/03/20 01/10/23 Rx [Symbicort 160-4.5 Mcg Inhaler] Furosemide [Lasix] 40 mg PO DAILY 05/12/20 01/10/23 History lisinopriL [Zestril] 10 mg PO HS 05/12/20 01/10/23 History ALPRAZolam [Xanax] 0.5 mg PO DAILY PRN 01/10/23 01/10/23 History Aspirin 81 mg PO HS 01/10/23 01/10/23 History Metoprolol Tartrate [Lopressor] 25 mg PO HS 01/10/23 01/10/23 History Montelukast [Singulair] 10 mg PO HS 01/10/23 01/10/23 History Varenicline [Chantix Continuing 1 mg PO BID 01/10/23 01/10/23 History Pack] metOLazone [Zaroxolyn] 2.5 mg PO NAM PRN 01/10/23 01/10/23 History Allergies Allergy/AdvReac Type Severity Reaction Status Date / Time azithromycin Allergy Rash/Hives Verified 01/10/23 16:24 codeine Allergy Dyspnea Verified 01/10/23 16:24 shellfish derived [Shellfish] Allergy Itching/Bryce Verified 01/10/23 19:18 h Physical Exam Vitals: Vital Signs Temp Pulse Pulse Resp BP BP Pulse Ox 01/11/23 08:11 84 01/11/23 08:00 81 95 01/11/23 06:40 97.6 F 83 20 125/76 96 01/11/23 02:18 98.6 F 85 16 112/67 98 01/10/23 20:30 98.4 F 99 20 146/84 97 01/10/23 20:01 98.4 F 71 18 110/84 95 01/10/23 19:22 100 16 93 L 01/10/23 18:03 96 18 01/10/23 17:56 96 18 01/10/23 16:20 97.9 F 100 20 132/84 93 L Intake and Output 01/10/23 01/11/23 01/11/23 22:59 06:59 14:59 Intake Total 693 Output Total 0 Balance 0 693 Intake: Oral 693 Output: Emesis 0 Other: # Voids 2 Weight 134.717 kg General: Obese, well developed, NAD. Vitals reviewed Eyes: PERRL, EOMI, conjunctiva normal HENT: normocephalic, mucus membranes moist Neck: supple, no JVD Lungs: Unlabored, normal respiratory effort. Essentially clear, diminished bases CV: Regular rate and rhythm, no murmur. Peripheral pulses 2+. 1+ edema BLE Abdomen: soft, nondistended, no organomegaly Lymph: no cervical or axillary LAD Skin: warm and dry. Neuro: A&Ox3, normal mood and affect Results CBC & Chem 7: 01/10/23 16:38 01/10/23 16:38 Labs: Abnormal Lab Results - Last 24 Hours (Table) 01/10/23 01/10/23 Range/Units 16:38 16:38 WBC 12.0 H (3.8-10.6) k/uL Hct 46.6 H (34.0-46.0) % RDW 15.9 H (11.5-15.5) % Neutrophils # 9.4 H (1.3-7.7) k/uL Creatinine 0.45 L (0.52-1.04) mg/dL Glucose 116 H (74-99) mg/dL Calcium 8.3 L (8.4-10.2) mg/dL Thrombosis Risk Factor Assmnt - Choose All That Apply Each Factor Represents 1 point: Age 41-60 years, Obesity (BMI >25), Swollen legs (current) Thrombosis Risk Factor Assessment Total Risk Factor Score: 3 Thrombosis Risk Factor Assessment Level: Moderate Risk Assessment and Plan Assessment: Acute on chronic CHF, systolic dysfunction. Chest x-ray reporting new opacity in the right midlung zone, follow-up chest x-ray in a.m. post diuresing. Possible acute right mid lobe pneumonia Acute hypoxic respiratory failure secondary to the above Hypertension Morbid obesity, BMI 49.4 History of asthma, controlled chronic polycythemia, requires therapeutic phlebotomy every 2-3 months Prior history of nicotine dependence, recently quit in September 2022 Plan: Continue on current medication regime ,monitoring and symptomatic treatment. Ceftriaxone ordered. Evaluated by cardiology, maintain IV push diuretics. Echo pending. Repeat chest x-ray in a.m.Close monitoring overnight with discharge planning in progress for tomorrow, pending cardiology clearance. The impression and plan of care has been dictated as directed. : I performed a history and examination of this patient, discussed the same with the dictator. I agree with the dictator's note ,documented as a scribe. Any additional findings or plans will be noted.
--- NOTE | 2023-01-11 11:46 | CA ---
Transthoracic Echo Report Name: Carolina Ricketts Age: 47 Gender: F : 1975 Exam Date: 01/11/2023 10:05 Exam Location: [facility] Ht (in): 65 Wt (lb): 297 Ordering Physician: Mario Walter MD ([id number]) Attending/Referring Phys: Saba JARA Substation Engineer Elisha Webster [facility] Procedure CPT: Indications: chf Cardiac Hx: Technical Quality: Technically difficult study Contrast 1: Lumason Total Dose (mL): 5 Contrast 2: Total Dose (mL): MEASUREMENTS (Male / Female) Normal Values DOPPLER AV Peak Velocity 128.4 cm/s AV Peak Gradient 6.6 mmHg AV Mean Velocity 104.4 cm/s AV Mean Gradient 4.5 mmHg AV Velocity Time Integral 24.6 cm LVOT Peak Velocity 101.7 cm/s LVOT Peak Gradient 4.1 mmHg LVOT Velocity Time Integral 20.8 cm Mitral E Point Velocity 76.8 cm/s Mitral A Point Velocity 90.4 cm/s Mitral E to A Ratio 0.8 MV Deceleration Time 164.6 ms LV E' Lateral Velocity 8.2 cm/s Mitral E to LV E' Lateral Ratio 9.3 LV E' Septal Velocity 8.9 cm/s Mitral E to LV E' Septal Ratio 8.6 Right Atrial Pressure 3.0 mmHg FINDINGS Left Ventricle Mildly increased left ventricular wall thickness. Left ventricular ejection fraction is estimated at 50-55%. Right Ventricle Right ventricle not well visualized. Right Atrium Right atrium not well visualized. Left Atrium Left atrial size at the upper limits of normal. Mitral Valve Mitral valve not well visualized. No mitral regurgitation. Aortic Valve Aortic valve not well visualized. Tricuspid Valve Tricuspid valve not well visualized. Pulmonic Valve Pulmonic valve not well visualized. Pericardium No pericardial effusion. Aorta Aortic root and proximal ascending aorta not well visualized. CONCLUSIONS Normal LV systolic function Technically suboptimal study secondary to poor echo windows Previewed by: Dr. Mario Walter MD (Electronically Signed) Final Date: 11 January 2023 11:45
[2023-01-11] MEDS: MONTELUKAST 10 MG TAB PO SCH (20:55)
[2023-01-11] MEDS: ASPIRIN 81 MG PO SCH (20:56)
[2023-01-11] MEDS: lisinopriL 10 MG TAB PO SCH (21:06)
[2023-01-11] MEDS: METOPROLOL TARTRATE 25 MG TAB PO SCH (21:06)
--- NOTE | 2023-01-12 07:22 | XR ---
EXAMINATION TYPE: XR chest 2V DATE OF EXAM: 01/12/2023 COMPARISON: 01/10/2023 HISTORY: Chest pain TECHNIQUE: Single frontal view of the chest is obtained. FINDINGS: Right basilar pleural-parenchymal opacity which is felt to reflect a combination of pleural effusion, atelectasis and/or infiltrate is unchanged. The cardiac silhouette size is within normal limits. The osseous structures are intact. IMPRESSION: 1. Stable chest
[2023-01-12] MEDS: ALBUTEROL NEBULIZED 2.5 MG/3 ML INHALATION SCH ×4 (08:17→21:01)
[2023-01-12] MEDS: SYMBICORT 160-4.5 MCG INHALER INHALATION SCH ×2 (08:18→21:01)
[2023-01-12] MEDS: VARENICLINE 1 MG PO SCH ×2 (09:00→20:53)
[2023-01-12] MEDS: FUROSEMIDE 10 MG/ML 4 ML VIAL IV SCH (09:12)
--- NOTE | 2023-01-12 11:31 | P.PN ---
Subjective Progress Note Date: 01/12/23 This is Brayden Pickett NP, I'm dictating on behalf of Dr. Valentin's H&P and A&P. Patient was interviewed and examined. Patient is a pleasant 47-year-old female who presented to the hospital with acute exacerbation of CHF. Patient reports that she's feeling better today. Her shortness of breath is improving. She is denying chest pain at this time. Her echocardiogram does demonstrate normal ventricular systolic function, an improvement from previous echocardiogram. Patient did inquire about being d ischarged today. GENERAL: Well-appearing, well-nourished and in no acute distress. NECK: Supple without JVD or thyromegaly. LUNGS: Breath sounds clear to auscultation bilaterally. Respiration equal and unlabored. No wheezes, rales or rhonchi. HEART: Regular rate and rhythm without murmurs, rubs or gallops. S1 and S2 heard. EXTREMITIES: Normal range of motion, no edema. No clubbing or cyanosis. Peripheral pulses intact and strong. VITALS: Temp 98.0, pulse 70, respirations 16, blood pressure 124/82, O2 saturation 94% on room air TELEMETRY: Normal sinus rhythm LABS: D-dimer 3.14, TSH 2.35 IMPRESSION: 1. Acute on chronic heart failure, normal EF 2. Nonischemic cardiomyopathy 3. Shortness of breath 4. Hypertension 5. Asthma 6. Nicotine dependence 7. Morbid obesity PLAN: Continue Lasix at this time Abnormal d-dimer to be addressed by medical team, it does appear that the pat ient has chronically elevated d-dimer Encourage patient to walk in hallway Further recommendations based on patient's clinical course Objective - Vital Signs Vital signs: Vital Signs Temp 98 F 01/12/23 07:00 Pulse 88 01/12/23 08:29 Resp 16 01/12/23 07:00 BP 124/82 01/12/23 07:00 Pulse Ox 94 L 01/12/23 07:00 FiO2 Intake & Output 01/11/23 01/12/23 01/12/23 18:59 06:59 18:59 Intake Total 693 118 Output Total 1400 900 800 Balance -707 -900 -682 Weight 133.4 kg Intake: Oral 693 118 Output: Urine 1400 900 800 Other: # Voids 2 4 # Bowel Movements 1 2 - Labs CBC & Chem 7: 01/10/23 16:38 01/10/23 16:38 Labs: Abnormal Lab Results - Last 24 Hours (Table) 01/12/23 Range/Units 07:43 D-Dimer 3.14 H (<0.60) mg/L FEU
[2023-01-12 11:50] LABS: Basophils # (A) 0.04 X 10*3/uL (0.00-0.10); Basophils % (A) 0.3 %; Eosinophils # (A) 0.21 X 10*3/uL (0.04-0.35); Eosinophils % (A) 1.4 %; HCT 47.4 % (37.2-46.3); HGB 14.8 d/dL (12.0-15.0); Lymphocytes # (A) 2.66 X 10*3/uL (0.90-5.00); Lymphocytes % (A) 17.6 %; MCH 30.1 pg (27.0-32.0); MCHC 31.2 d/dL (32.0-37.0); MCV 96.3 FL (80.0-97.0); Mean Platelet Volume 10.3 FL (9.5-12.2); Monocytes # (A) 1.11 X 10*3/uL (0.20-1.00); Monocytes % (A) 7.4 %; NRBC Per 100 WBC 0 X 10*3/uL (0.00-0.01); Neutrophils # (A) 11.02 X 10*3/uL (1.80-7.70); Platelet Count 307 X 10*3/uL (140-440); RBC 4.92 X 10*6/uL (4.10-5.20); RDW 16.3 % (11.5-14.5); WBC 15.09 X 10*3/uL (4.50-10.00)
[2023-01-12 12:22] LABS: BUN/Creat Ratio 25.29 Ratio (12.00-20.00); Blood Urea Nitrogen 17.7 mg/dL (9.0-27.0); Carbon Dioxide 30.2 mmol/L (21.6-31.8); Chloride 101 mmol/L (96-109); Glucose 109 mg/dL (70-110); Potassium 4.5 mmol/L (3.5-5.5); Sodium 141 mmol/L (135-145)
[2023-01-12 13:44] LABS: Chol/HDL Ratio 4.88 Ratio; LDL Cholesterol,Calculated 136.1 mg/dL (0.0-131.0); VLDL Calculation 15.82 mg/dL (5.00-40.00)
[2023-01-12] MEDS: MONTELUKAST 10 MG TAB PO SCH (20:33)
[2023-01-12] MEDS: ASPIRIN 81 MG PO SCH (20:33)
[2023-01-12] MEDS: METOPROLOL TARTRATE 25 MG TAB PO SCH (20:33)
[2023-01-12] MEDS: lisinopriL 10 MG TAB PO SCH (20:53)
--- NOTE | 2023-01-12 22:56 | P.PN ---
Subjective This is a 47-year-old female with past medical history significant for asthma/COPD, [id number] in September 2022, morbid obesity and hypertension who presented with worsening exertional shortness of breath over the last 1-2 weeks, bilateral lower extremity edema. Chest x-ray reported interval worsening, no pneumothorax or other abnormal gas collection. Prominent right pleural effusion, atelectasis, bibasilar airspace filling processes remain right greater than left, new right mid lung opacity, cephalad to the minor fissure. Prior CTA on 12/23 reported scattered atelectasis in the right lung. Denies chills ,congestion or cough. Denies sick contacts. Afebrile, WBC 12. Received a dose of Rocephin in the ER. Denies chest pain, palpitations. EKG sinus rhythm, troponin negative 1. Denies any lightheadedness dizziness or focal deficits. Currently maintaining O2 sats in the 90s on 3 L nasal cannula. Hemoglobin 14.7, platelets 300, INR 1. Electrolytes within normal limits, BUN 14, creatinine 0.45, bicarb 29. ProBNP 300. IV push diuretics initiated in the ER. Cardiology consult in place, recommendations pending. 01/12/2023 This is a pleasant 47 years old female who presents initially because of dyspnea. She has chest x-ray on admission that this suspicious for bilateral pleural effusion, right more than left with underlying atelectasis versus infiltrate, CHF was suspected and patient was still on IV Lasix, proBNP 300. Patient reports improvement, she has no tachypnea or dyspnea at rest, no chest pain or coughing, she is complaining of from exertional dyspnea. However overall she feels improvement since admission and she is not tachypneic or dyspneic at rest Repeat chest x-ray is negative. She has mild leukocytosis 15,000 CTA done earlier this month was negative for pulmonary embolism at that time there was no infiltrates in the lung bases. Also patient placed on ceftriaxone since admission. No sputum culture. We will check priorcalcitonin. Objective - Vital Signs Vital signs: Vital Signs Temp 98 F 01/12/23 07:00 Pulse 88 01/12/23 08:29 Resp 16 01/12/23 07:00 BP 124/82 01/12/23 07:00 Pulse Ox 94 L 01/12/23 07:00 FiO2 Intake & Output 01/11/23 01/12/23 01/12/23 18:59 06:59 18:59 Intake Total 693 118 Output Total 1400 900 800 Balance -707 -900 -682 Weight 133.4 kg Intake: Oral 693 118 Output: Urine 1400 900 800 Other: # Voids 2 4 # Bowel Movements 1 2 - Exam -GENERAL: The patient is alert and oriented x3, not in any acute distress. morbidly obese HEENT: Pupils are round and equally reacting to light. EOMI. No scleral icterus. No conjunctival pallor. Normocephalic, atraumatic. No pharyngeal erythema. No thyromegaly. CARDIOVASCULAR: S1 and S2 present. No murmurs, rubs, or gallops. PULMONARY: Chest is clear to auscultation, no wheezing . no crackles. ABDOMEN: Soft, nontender, nondistended, normoactive bowel sounds. No palpable organomegaly. MUSCULOSKELETAL: No joint swelling or deformity. EXTREMITIES: No cyanosis, clubbing, or pedal edema. NEUROLOGICAL: Gross neurological examination did not reveal any focal deficits. SKIN: No rashes. no petechiae. - Labs CBC & Chem 7: 01/12/23 06:22 01/12/23 06:22 Labs: Abnormal Lab Results - Last 24 Hours (Table) 01/12/23 01/12/23 01/12/23 Range/Units 06:22 06:22 07:43 WBC 15.09 H (4.50-10.00) X 10*3/uL Hct 47.4 H (37.2-46.3) % MCHC 31.2 L (32.0-37.0) d/dL RDW 16.3 H (11.5-14.5) % Neutrophils # 11.02 H (1.80-7.70) X 10*3/uL Monocytes # 1.11 H (0.20-1.00) X 10*3/uL D-Dimer 3.14 H (<0.60) mg/L FEU BUN/Creatinine Ratio 25.29 H (12.00-20.00) Ratio LDL Cholesterol, Calc (0.0-131.0) mg/dL HDL Cholesterol (40.00-60.00) mg/dL 01/12/23 Range/Units 07:47 WBC (4.50-10.00) X 10*3/uL Hct (37.2-46.3) % MCHC (32.0-37.0) d/dL RDW (11.5-14.5) % Neutrophils # (1.80-7.70) X 10*3/uL Monocytes # (0.20-1.00) X 10*3/uL D-Dimer (<0.60) mg/L FEU BUN/Creatinine Ratio (12.00-20.00) Ratio LDL Cholesterol, Calc 136.1 H (0.0-131.0) mg/dL HDL Cholesterol 39.10 L (40.00-60.00) mg/dL Assessment and Plan Assessment: Shortness of breath especially with exertion suspected secondary to bilateral p neumonia and bilateral pleural effusion, CHF is felt less likely. Ejection fraction preserved. Morbid obesity with BMI of 48.9. Leukocytosis. Acute hypoxic respiratory failure secondary to the above Hypertension History of asthma, controlled chronic polycythemia, requires therapeutic phlebotomy every 2-3 months Prior history of nicotine dependence, recently quit in September 2022 Plan: Continue with ceftriaxone Check pro-calcitonin Also patient on Lasix recent CTA earlier this month was negative for PE or significant infiltrate Consult pulmonary service in the morning Labs and medication were reviewed.. Continue same treatment. Continue with symptomatic treatment. Resume home medication. Monitor labs and vitals. DVT and GI prophylaxis. Further recommendations as per clinical course of the patient DVT prophylaxis: Subcutaneous heparin GI Prophylaxis: Pepcid Prognosis is guarded
[2023-01-12] MEDS: HEPARIN SODIUM,PORCINE/PF 5,000 UNIT/0.5 ML SYRINGE SQ SCH (23:29)
[2023-01-13 07:06] LABS: African American GFR (CKD) >90 (>60 ml/min/1.73 sqM); Anion Gap 5 mmol/L; Blood Urea Nitrogen 17 mg/dL (7-17); Calcium 8.3 mg/dL (8.4-10.2); Carbon Dioxide 33 mmol/L (22-30); Chloride 98 mmol/L (98-107); Glucose 100 mg/dL (74-99); Non-African American GFR(CKD) >90 (>60 ml/min/1.73 sqM); Potassium 4.2 mmol/L (3.5-5.1); Sodium 136 mmol/L (137-145)
[2023-01-13 07:15] LABS: NT-Pro-B-Type Natriuretic Pept 81 pg/mL
[2023-01-13] MEDS: SYMBICORT 160-4.5 MCG INHALER INHALATION SCH (08:02)
[2023-01-13] MEDS: ALBUTEROL NEBULIZED 2.5 MG/3 ML INHALATION SCH ×2 (08:02→11:58)
[2023-01-13] MEDS: FUROSEMIDE 10 MG/ML 4 ML VIAL IV SCH (08:40)
[2023-01-13] MEDS: VARENICLINE 1 MG PO SCH (08:41)
[2023-01-13] MEDS: ACETAMINOPHEN TAB 325 MG TAB PO PRN (08:42)
[2023-01-13] MEDS ORDERED: FAMOTIDINE 20 MG/2 ML VIAL IV SCH (09:00)
[2023-01-13 09:21] VITALS: BP 120/80; PULSE 87; RESP 18; TEMP 98
[2023-01-13 09:23] LABS: Basophils # (A) 0.09 X 10*3/uL (0.00-0.10); Basophils % (A) 0.8 %; Eosinophils # (A) 0.47 X 10*3/uL (0.04-0.35); Eosinophils % (A) 4.3 %; HCT 48.3 % (37.2-46.3); HGB 14.9 d/dL (12.0-15.0); Lymphocytes # (A) 2.52 X 10*3/uL (0.90-5.00); Lymphocytes % (A) 22.9 %; MCH 29.3 pg (27.0-32.0); MCHC 30.8 d/dL (32.0-37.0); MCV 95.1 FL (80.0-97.0); Mean Platelet Volume 10.1 FL (9.5-12.2); Monocytes # (A) 1.19 X 10*3/uL (0.20-1.00); Monocytes % (A) 10.8 %; NRBC Per 100 WBC 0 X 10*3/uL (0.00-0.01); Neutrophils # (A) 6.71 X 10*3/uL (1.80-7.70); Neutrophils % (A) 60.8 %; Platelet Count 307 X 10*3/uL (140-440); RBC 5.08 X 10*6/uL (4.10-5.20); WBC 11.02 X 10*3/uL (4.50-10.00)
--- NOTE | 2023-01-13 12:18 | P.PN ---
Subjective Progress Note Date: 01/13/23 This is Brayden Pickett NP, I'm dictating on behalf of Dr. Valentin's H&P and A&P. Patient was interviewed and examined. Patient is a pleasant 47-year-old female who presented to the hospital with acute exacerbation CHF. She is reporting feeling very good today. She states she no longer has any shortness of breath. She has been walking the halls with no difficulty. Oxygen is no longer required and she is tolerating room air. She feels back to her baseline at this time. GENERAL: Well-appearing, well-nourished and in no acute distress. NECK: Supple without JVD or thyromegaly. LUNGS: Breath sounds clear to auscultation bilaterally. Respiration equal and unlabored. No wheezes, rales or rhonchi. HEART: Regular rate and rhythm without murmurs, rubs or gallops. S1 and S2 heard. EXTREMITIES: Normal range of motion, no edema. No clubbing or cyanosis. Peripheral pulses intact and strong. VITALS: Temp 98.0, pulse 87, respirations 18, blood pressure 120/80, O2 saturation 92% on room air TELEMETRY: Normal sinus rhythm LABS: White count 11.02, hemoglobin 14.9, platelets 307, sodium 136, potassium 4.2, B1 17, creatinine 0.5 to, calcium 8.3, BNP 81, TSH 2.35 IMPRESSION: 1. Acute on chronic heart failure, normal EF 2. Nonischemic cardiomyopathy 3. Shortness of breath 4. Hypertension 5. Asthma 6. Nicotine dependence 7. Morbid obesity PLAN: Lasix changed to home dose at 60mg PO daily. May be discharged from a cardiology standpoint. Patient should weigh herself daily. Follow-up with PCP in 1-2 weeks. Objective - Vital Signs Vital signs: Vital Signs Temp 97.6 F 01/13/23 02:25 Pulse 85 01/13/23 08:14 Resp 15 01/13/23 02:25 BP 109/69 01/13/23 02:25 Pulse Ox 96 01/13/23 02:25 FiO2 Intake & Output 01/12/23 01/13/23 01/13/23 18:59 06:59 18:59 Intake Total 336 Output Total 1999 Balance -1663 Weight 133.3 kg Intake: Oral 336 Output: Urine 2000 800 Other: # Voids 4 4 - Labs CBC & Chem 7: 01/13/23 06:25 01/13/23 06:25 Labs: Abnormal Lab Results - Last 24 Hours (Table) 01/12/23 01/12/23 01/12/23 Range/Units 06:22 06:22 07:47 WBC 15.09 H (4.50-10.00) X 10*3/uL Hct 47.4 H (37.2-46.3) % MCHC 31.2 L (32.0-37.0) d/dL RDW 16.3 H (11.5-14.5) % Neutrophils # 11.02 H (1.80-7.70) X 10*3/uL Monocytes # 1.11 H (0.20-1.00) X 10*3/uL Sodium (137-145) mmol/L Carbon Dioxide (22-30) mmol/L BUN/Creatinine Ratio 25.29 H (12.00-20.00) Ratio Glucose (74-99) mg/dL Calcium (8.4-10.2) mg/dL LDL Cholesterol, Calc 136.1 H (0.0-131.0) mg/dL HDL Cholesterol 39.10 L (40.00-60.00) mg/dL 01/13/23 Range/Units 06:25 WBC (4.50-10.00) X 10*3/uL Hct (37.2-46.3) % MCHC (32.0-37.0) d/dL RDW (11.5-14.5) % Neutrophils # (1.80-7.70) X 10*3/uL Monocytes # (0.20-1.00) X 10*3/uL Sodium 136 L (137-145) mmol/L Carbon Dioxide 33 H (22-30) mmol/L BUN/Creatinine Ratio (12.00-20.00) Ratio Glucose 100 H (74-99) mg/dL Calcium 8.3 L (8.4-10.2) mg/dL LDL Cholesterol, Calc (0.0-131.0) mg/dL HDL Cholesterol (40.00-60.00) mg/dL
[2023-01-13] MEDS: HEPARIN SODIUM,PORCINE/PF 5,000 UNIT/0.5 ML SYRINGE SQ SCH (12:32)
--- NOTE | 2023-01-13 13:13 | P.CNPUL ---
History of Present Illness Consult date: 01/13/23 Reason for consult: dyspnea History of present illness: This is a 47-year-old obese female patient with a body mass index of 48, hospitalized for worsening shortness of breath. The patient has history of COPD/asthma maintained on Symbicort on outpatient basis and she also has an albuterol nebulizer. Not oxygen dependent. She also has history of CHF with preserved LV function. The patient came into the hospital because of worsening shortness of breath. She also had increased lower extremity edema and she is improved for now as the patient was given IV Lasix. She was also given bronchodilators. She states that she quit smoking recently. No diagnosed obstructive sleep apnea. No angina. No palpitation. No sputum production. Pr o-calcitonin level was low at 0.04. EKG showed no acute ischemic changes. Echocardiogram showed a preserved LV function without any valvular abnormalities. ProBNP level was 300. Troponins were negative. Cardiac catheterization that was done in December 2019 showed normal coronaries. She has no complaints for now. I reviewed the chest x-ray shows some increased interstitial markings bilaterally. There is also some mild cardiomegaly. No airspace disease. Covid 19 testing was negative. RSV was negative. Influenza was negative. Review of Systems CONSTITUTIONAL: Denies fever or chills. HEENT: Denies blurred vision, vision changes, or eye pain. Denies hemoptysis she does have history of snoring CARDIOVASCULAR: Denies chest pain. Denies orthopnea. Denies PND. Denies palpitations RESPIRATORY: Has some exertional dyspnea. This is chronic along with cough and wheeze. GASTROINTESTINAL: Denies abdominal pain. Denies nausea or vomiting. HEMATOLOGIC: Denies bleeding disorders. GENITOURINARY: Denies any blood in urine. SKIN: Denies pruitis. Denies rash. Past Medical History Past Medical History: Asthma, Blood Disorder, Heart Failure, Pneumonia, Vascular Disorder Additional Past Medical History / Comment(s): Secondary polycythemia and the patient has a sick phlebotomy in the past, TMJ, obesity, chronic but because of these involving the lower extremities History of Any Multi-Drug Resistant Organisms: None Reported Past Surgical History: Appendectomy, Cholecystectomy, Hysterectomy, Uterine Ablation Additional Past Surgical History / Comment(s): NOVASURE Past Anesthesia/Blood Transfusion Reactions: Motion Sickness Additional Past Anesthesia/Blood Transfusion Reaction / Comment(s): HAS TMJ Past Psychological History: No Psychological Hx Reported Smoking Status: Former smoker Past Alcohol Use History: None Reported Past Drug Use History: None Reported - Past Family History Mother Family Medical History: Pulmonary Embolus Additional Family Medical History / Comment(s): Mother of a PE at the age of 63 yrs. Father Family Medical History: Hypertension, Respiratory Disorder Additional Family Medical History / Comment(s): Father is an alcoholic. He had asbestos exposure/lungs affected. Medications and Allergies Home Medications Medication Instructions Recorded Confirmed Type Albuterol Sulfate [Proair Hfa] 2 puff INHALATION RT-QID PRN 10/10/18 01/10/23 History Albuterol Nebulized [Ventolin 2.5 mg INHALATION RT-QID #120 ml 01/03/20 01/10/23 Rx Nebulized] Budesonide-Formot 160-4.5 Mcg 2 puff INHALATION RT-BID #1 puff 01/03/20 01/10/23 Rx [Symbicort 160-4.5 Mcg Inhaler] lisinopriL [Zestril] 10 mg PO HS 05/12/20 01/10/23 History ALPRAZolam [Xanax] 0.5 mg PO DAILY PRN 01/10/23 01/10/23 History Aspirin 81 mg PO HS 01/10/23 01/10/23 History Metoprolol Tartrate [Lopressor] 25 mg PO HS 01/10/23 01/10/23 History Montelukast [Singulair] 10 mg PO HS 01/10/23 01/10/23 History Varenicline [Chantix Continuing 1 mg PO BID 01/10/23 01/10/23 History Pack] Furosemide [Lasix] 60 mg PO DAILY #90 tab 01/13/23 Rx Allergies Allergy/AdvReac Type Severity Reaction Status Date / Time azithromycin Allergy Rash/Hives Verified 01/10/23 16:24 codeine Allergy Dyspnea Verified 01/10/23 16:24 shellfish derived [Shellfish] Allergy Itching/Bryce Verified 01/10/23 19:18 h Physical Exam Vitals: Vital Signs Temp Pulse Pulse Resp BP Pulse Ox 01/13/23 08:14 85 01/13/23 08:04 83 01/13/23 07:30 98.0 F 87 18 120/80 92 L 01/13/23 02:25 97.6 F 68 15 109/69 96 01/12/23 21:10 82 01/12/23 21:02 82 01/12/23 20:33 98.1 F 89 15 104/75 94 L 01/12/23 15:59 87 01/12/23 15:53 85 01/12/23 14:59 98.3 F 101 H 16 99/60 95 Intake and Output 01/12/23 01/13/23 01/13/23 22:59 06:59 14:59 Intake Total 118 118 Output Total 800 Balance 118 -682 Intake: Oral 118 118 Output: Urine 800 Other: # Voids 4 Weight 133.3 kg GENERAL: Well-developed in no acute distress. Calm and comfortable on room air oxygen Head exam was generally normal. There was no scleral icterus or corneal arcus. Mucous membranes were moist. HEENT: Head is normocephalic. Pupils are equal, round. Sclerae anicteric. Mucous membranes of the mouth are moist. Neck supple. No JVD or thyromegaly LUNGS: Respirations even and unlabored. Lungs essentially clear to auscultation bilaterally, diminished. HEART: Regular rate and rhythm. S1 and S2 heard. ABDOMEN: Soft. Nondistended. Nontender. EXTREMITIES: Normal range of motion. No clubbing or cyanosis. Peripheral pulses intact. 1+ bilateral lower extremity edema NEUROLOGIC: Awake and alert. Oriented x 3. Examination of the skin revealed no evidence of significant rashes, suspicious appearing nevi or other concerning lesions. Results - Laboratory Findings CBC and BMP: 01/13/23 06:25 01/13/23 06:25 PT/INR, D-dimer PT 10.1 sec (9.0-12.0) 01/10/23 16:38 INR 1.0 (<1.2) 01/10/23 16:38 D-Dimer 3.14 mg/L FEU (<0.60) H 01/12/23 07:43 Abnormal lab findings: Abnormal Labs 01/10/23 01/10/23 01/12/23 16:38 16:38 06: WBC 12.0 H Hct 46.6 H MCHC RDW 15.9 H Neutrophils # 9.4 H Monocytes # Eosinophils # D-Dimer Sodium Carbon Dioxide Creatinine 0.45 L BUN/Creatinine Ratio 25.29 H Glucose 116 H Calcium 8.3 L LDL Cholesterol, Calc HDL Cholesterol 01/12/23 01/12/23 01/12/23 06:22 07:43 07:47 WBC 15.09 H Hct 47.4 H MCHC 31.2 L RDW 16.3 H Neutrophils # 11.02 H Monocytes # 1.11 H Eosinophils # D-Dimer 3.14 H Sodium Carbon Dioxide Creatinine BUN/Creatinine Ratio Glucose Calcium LDL Cholesterol, Calc 136.1 H HDL Cholesterol 39.10 L 01/13/23 01/13/23 06:25 06:25 WBC 11.02 H Hct 48.3 H MCHC 30.8 L RDW 16.0 H Neutrophils # Monocytes # 1.19 H Eosinophils # 0.47 H D-Dimer Sodium 136 L Carbon Dioxide 33 H Creatinine BUN/Creatinine Ratio Glucose 100 H Calcium 8.3 L LDL Cholesterol, Calc HDL Cholesterol - Diagnostic Findings Chest x-ray: image reviewed Assessment and Plan Plan: COPD/asthma, tested on Symbicort on outpatient basis. The patient is an ex- smoker. No signs of any acute exacerbation CHF with preserved LV function and some signs of fluid overload, improved. The echocardiogram shows a preserved LV function, proBNP level is mildly elevated Morbid obesity with a BMI 48.9 Obstructive sleep apnea, clinically suspected Secondary polycythemia the patient received phlebotomies in the past Lower extremity edema improved Hypertension Normal coronaries based on the catheterization was done in 2020 Plan The patient can be discharged home on Symbicort. No need for antibiotics. No need for steroids. Continue albuterol rescue inhaler as needed. No smoking. Outpatient PFT. Outpatient pulmonary function test. Diuretics to be continued even on an outpatient basis. Tight blood pressure control. Cleared for discharge from the fourth standpoint.
[2023-01-13] MEDS ORDERED: FAMOTIDINE 20 MG TAB PO SCH (21:00)
--- NOTE | 2023-01-13 22:10 | P.DS ---
Providers Date of admission: 01/10/23 19:02 Attending physician: Young Jewell MD Consults: 01/10/23 18:59 Consult Physician Urgent Consulting Provider: [facility] Consult Reason/Comments: CHF exacerbation Do you want consulting provider notified?: Yes 01/12/23 22:56 Consult Physician Routine Consulting Provider: Laura Rodriguez Consult Reason/Comments: b/l infilterate Do you want consulting provider notified?: Yes, Notify in am Primary care physician: Young Jewell MD Hospital Course: -Shortness of breath especially with exertion suspected secondary to asthma/COPD, pneumonia and CHF felt less likely are mild and responded for treatment, no need for diuretics on antibiotics upon discharge, cleared by both cardiology and pulmonary team -Morbid obesity with BMI of 48.9. -Leukocytosis. -Acute hypoxic respiratory failure secondary to the above -Hypertension -History of asthma, controlled -chronic polycythemia, requires therapeutic phlebotomy every 2-3 months -Prior history of nicotine dependence, recently quit in September 2022 Hospital course: This is a 47-year-old female with past medical history significant for asthma/COPD, [id number] in September 2022, morbid obesity and hypertension who presented with worsening exertional shortness of breath over the last 1-2 weeks, bilateral lower extremity edema. Chest x-ray reported interval worsening, no pneumothorax or other abnormal gas collection. Prominent right pleural effusion, atelectasis, bibasilar airspace filling processes remain right greater than left,. Patient able to just, mild CHF is suspected and the treated with short course of IV Lasix as well as short course of ceftriaxone for suspected pneumonia however patient with no fever, mild leukocytosis improving down to 11,000 today. Pulmonary team consult was obtained today, since yesterday patient breathing is back to normal, patient denies any chest pain dyspnea coughing or any other symptoms today, she saw her to go home today, (she was dressed up lying in bed when I walked into the room today). She denies any other new GI urinary or neurological complaints No need for antibiotic upon discharge, and Lasix is wished to 60 mg daily upon discharge by tax investigator. Patient was cleared for discharge by both pulmonary and cardiology services Problems and management plan were discussed with the patient and he verbalized understanding and acceptance. at bedside Patient was found stable and can be discharged home in guarded prognosis however he needs follow-up as an outpatient. Patient was instructed to follow up with PCP Dr. Jewell within in 1-2 days and patient agrees Patient was instructed to follow up with obiee architect Dr. Rodriguez in one week and tax investigator Dr. Mchugh in one week and she agrees to call and make appoin tment. Physical exam Gen: patient is a AAOx3, no distress, obese CVS: S1-S2, RRR, no murmur Lungs: B/L CTA, no wheezing Abdomen: soft, no distention, no tenderness, positive bowel sounds Extremity: no leg edema or induration Time spent more than 35 minutes Patient Condition at Discharge: Fair Plan - Discharge Summary New Discharge Prescriptions: New Furosemide [Lasix] 60 mg PO DAILY #90 tab Continue Albuterol Sulfate [Proair Hfa] 2 puff INHALATION RT-QID PRN PRN Reason: Shortness Of Breath Budesonide-Formot 160-4.5 Mcg [Symbicort 160-4.5 Mcg Inhaler] 2 puff INHALATION RT-BID #1 puff Albuterol Nebulized [Ventolin Nebulized] 2.5 mg INHALATION RT-QID #120 ml lisinopriL [Zestril] 10 mg PO HS Metoprolol Tartrate [Lopressor] 25 mg PO HS Aspirin 81 mg PO HS ALPRAZolam [Xanax] 0.5 mg PO DAILY PRN PRN Reason: Anxiety Varenicline [Chantix Continuing Pack] 1 mg PO BID Montelukast [Singulair] 10 mg PO HS Discontinued Furosemide [Lasix] 40 mg PO DAILY metOLazone [Zaroxolyn] 2.5 mg PO NAM PRN PRN Reason: EDEMA/SOB Discharge Medication List Albuterol Sulfate [Proair Hfa] 2 puff INHALATION RT-QID PRN 10/10/18 [History] Albuterol Nebulized [Ventolin Nebulized] 2.5 mg INHALATION RT-QID #120 ml 01/03/20 [Rx] Budesonide-Formot 160-4.5 Mcg [Symbicort 160-4.5 Mcg Inhaler] 2 puff INHALATION RT-BID #1 puff 01/03/20 [Rx] lisinopriL [Zestril] 10 mg PO HS 05/12/20 [History] ALPRAZolam [Xanax] 0.5 mg PO DAILY PRN 01/10/23 [History] Aspirin 81 mg PO HS 01/10/23 [History] Metoprolol Tartrate [Lopressor] 25 mg PO HS 01/10/23 [History] Montelukast [Singulair] 10 mg PO HS 01/10/23 [History] Varenicline [Chantix Continuing Pack] 1 mg PO BID 01/10/23 [History] Furosemide [Lasix] 60 mg PO DAILY #90 tab 01/13/23 [Rx] Follow up Appointment(s)/Referral(s): Umang Valentin MD [STAFF PHYSICIAN] - 1 Week Young Jewell MD [Primary Care Provider] - 1-2 days Laura Rodriguez MD [STAFF PHYSICIAN] - 1 Week Patient Instructions/Handouts: Heart Failure (DC) Activity/Diet/Wound Care/Special Instructions: Heart healthy diet activity is restricted till you see your doctors Discharge Disposition: HOME SELF-CARE
[2023-01-14] MEDS ORDERED: FUROSEMIDE 20 MG TAB PO SCH (09:00)
== END 2023-01-13 14:02 | disposition home or self-care (01) | DRG 291 ==
LOC: EC 15:22 → 6NMEDSUR 19:02 → OBSVTOIN 01-13 06:08 → UNDODISOB 01-13 14:02
PROVIDERS: ADMIT Family Medicine; ATTEND Family Medicine
DX: I11.0 Hypertensive heart disease with heart failure (principal); I50.23 Acute on chronic systolic (congestive) heart failure; J96.01 Acute respiratory failure with hypoxia; J98.11 Atelectasis; Z68.42 Body mass index [BMI] 45.0-49.9, adult; I42.8 Other cardiomyopathies; E66.01 Morbid (severe) obesity due to excess calories; D75.1 Secondary polycythemia; G47.33 Obstructive sleep apnea (adult) (pediatric); I08.1 Rheumatic disorders of both mitral and tricuspid valves; J44.9 Chronic obstructive pulmonary disease, unspecified; Z20.822 Contact with and (suspected) exposure to COVID-19; Z63.72 Alcoholism and drug addiction in family; Z79.51 Long term (current) use of inhaled steroids; Z79.82 Long term (current) use of aspirin; Z79.899 Other long term (current) drug therapy; Z83.6 Family history of other diseases of the respiratory system; Z28.21 Immunization not carried out because of patient refusal; Z87.891 Personal history of nicotine dependence; Z82.49 Family history of ischemic heart disease and other diseases of the circulatory system; Z87.01 Personal history of pneumonia (recurrent); Z88.1 Allergy status to other antibiotic agents; Z88.5 Allergy status to narcotic agent; Z91.013 Allergy to seafood
CPT/HCPCS: 36415; 71046; 80048; 80053; 80061; 83036; 83880; 84145; 84443; 84484; 85025; 85379; 85610; 85730; 87636; 93306; 94640; 94760

== ENCOUNTER 2023-10-18 16:32 | Observation (INO) | payer BC ==
[2023-10-18 17:41] LABS: Basophils # (A) 0.1 k/uL (0-0.2); Basophils % (A) 0 %; Eosinophils # (A) 0.4 k/uL (0-0.7); Eosinophils % (A) 3 %; HCT 47.1 % (34.0-46.0); HGB 14.4 gm/dL (11.4-16.0); Hypochromasia Slight; Lymphocytes # (A) 1.4 k/uL (1.0-4.8); Lymphocytes % (A) 12 %; MCH 28.9 pg (25.0-35.0); MCHC 30.5 g/dL (31.0-37.0); MCV 94.6 fL (80.0-100.0); Mean Platelet Volume 7.8; Monocytes # (A) 0.7 k/uL (0-1.0); Monocytes % (A) 6 %; Neutrophils # (A) 8.9 k/uL (1.3-7.7); Neutrophils % (A) 77 %; Platelet Count 253 k/uL (150-450); RBC 4.98 m/uL (3.80-5.40); RDW 14.3 % (11.5-15.5); WBC 11.6 k/uL (3.8-10.6)
--- NOTE | 2023-10-18 17:48 | XR ---
EXAMINATION TYPE: XR chest 2V DATE OF EXAM: 10/18/2023 5:43 PM CLINICAL INDICATION:Female, 48 years old with history of difficulty breathing; [facility] COMPARISON: Chest radiographs from 01/12/2023 TECHNIQUE: XR chest 2V Frontal and lateral views of the chest. FINDINGS: Lungs/Pleura: There is no evidence of pleural effusion, focal consolidation, or pneumothorax. Pulmonary vascularity: Pulmonary vascular congestion. Heart/mediastinum: Cardiomediastinal silhouette is enlarged and stable. Musculoskeletal: No acute osseous pathology. IMPRESSION: Cardiomegaly and mild pulmonary vascular congestion. Correlate with BNP for congestive heart failure.
[2023-10-18 17:52] LABS: Partial Thromboplastin Time 26.5 sec (22.0-30.0); Prothrombin Time 11.3 sec (10.0-12.5)
[2023-10-18 17:53] LABS: ALT 22 U/L (4-34); AST 20 U/L (14-36); African American GFR (CKD) >90 (>60 ml/min/1.73 sqM); Albumin 3.4 g/dL (3.5-5.0); Alkaline Phosphatase 69 U/L (38-126); Anion Gap 4 mmol/L; Blood Urea Nitrogen 15 mg/dL (7-17); Calcium 8.5 mg/dL (8.4-10.2); Carbon Dioxide 32 mmol/L (22-30); Chloride 104 mmol/L (98-107); Glucose 134 mg/dL (74-99); Magnesium 1.9 mg/dL (1.6-2.3); Non-African American GFR(CKD) >90 (>60 ml/min/1.73 sqM); Potassium 3.8 mmol/L (3.5-5.1); Sodium 140 mmol/L (137-145); Total Bilirubin 0.6 mg/dL (0.2-1.3); Total Protein 6.6 g/dL (6.3-8.2)
[2023-10-18 18:01] LABS: NT-Pro-B-Type Natriuretic Pept 128 pg/mL
[2023-10-18] MEDS: FUROSEMIDE 10 MG/ML 4 ML VIAL IV STA (18:09)
[2023-10-18] MEDS: methylPREDNISolone SOD SUCCI 125 MG/2 ML VIAL IV STA (18:11)
[2023-10-18] MEDS: IPRATROPIUM-ALBUTEROL 3 ML NEB INHALATION STA (18:14)
[2023-10-18] MEDS ORDERED: NALOXONE 0.4 MG/ML 1 ML VIAL IV PRN (19:20)
[2023-10-18] MEDS ORDERED: IPRATROPIUM-ALBUTEROL 3 ML NEB INHALATION PRN (19:22)
--- NOTE | 2023-10-18 19:22 | ED ---
SOB HPI - General Chief Complaint: Shortness of Breath Stated Complaint: CHF Time Seen by Provider: 10/18/23 17:13 Source: patient Mode of arrival: ambulatory Limitations: no limitations - History of Present Illness Initial Comments: 48-year-old female presenting with chief complaint of shortness of breath. Patient was seen by her PCP Dr. Jewell today and he advised her to report to the ER for treatment of CHF exacerbation. Patient has history of CHF and asthma. She states that she has been taking her Lasix at home, however she has still had increasing lower extremity edema. She also admits to chest tightness and wheezing. No chest pain. No nausea, vomiting, abdominal pain. No fever, cough, congestion, sore throat. - Related Data Home Medications Medication Instructions Recorded Confirmed Albuterol Sulfate [Proair Hfa] 2 puff INHALATION RT-QID PRN 10/10/18 10/18/23 lisinopriL [Zestril] 10 mg PO DAILY@0000 05/12/20 10/18/23 Metoprolol Tartrate [Lopressor] 25 mg PO BID@0000,1200 01/10/23 10/18/23 Montelukast [Singulair] 10 mg PO HS@1200 01/10/23 10/18/23 Varenicline [Chantix Continuing 1 mg PO BID@0000,1200 01/10/23 10/18/23 Pack] Aspirin EC [Ecotrin Low Dose] 81 mg PO DAILY@0000 10/18/23 10/18/23 Budesonide-Formot 160-4.5 Mcg 2 puff INHALATION RT-BID@0000,1200 10/18/23 10/18/23 [Symbicort 160-4.5 Mcg Inhaler] Furosemide [Lasix] 60 mg PO BID@0000,1200 10/18/23 10/18/23 Ibuprofen [Motrin] 800 mg PO TID PRN 10/18/23 10/18/23 Potassium Chloride ER [K-Dur 10] 10 meq PO DAILY 10/18/23 10/18/23 cloNIDine HCL [Catapres] 0.45 mg PO HS@1200 10/18/23 10/18/23 Previous Rx's Medication Instructions Recorded Albuterol Nebulized [Ventolin 2.5 mg INHALATION RT-QID #120 ml 01/03/20 Nebulized] Allergies Allergy/AdvReac Type Severity Reaction Status Date / Time azithromycin Allergy Rash/Hives Verified 10/18/23 16:38 codeine Allergy Dyspnea Verified 10/18/23 16:38 shellfish derived [Shellfish] Allergy Itching/Bryce Verified 10/18/23 16:38 h Review of Systems ROS Statement: Those systems with pertinent positive or pertinent negative responses have been documented in the HPI. ROS Other: All systems not noted in ROS Statement are negative. Past Medical History Past Medical History: Asthma, Blood Disorder, Heart Failure, Pneumonia, Vascular Disorder Additional Past Medical History / Comment(s): Secondary polycythemia and the patient has a sick phlebotomy in the past, TMJ, obesity, chronic but because of these involving the lower extremities History of Any Multi-Drug Resistant Organisms: None Reported Past Surgical History: Appendectomy, Cholecystectomy, Hysterectomy, Uterine Ablation Additional Past Surgical History / Comment(s): NOVASURE Past Anesthesia/Blood Transfusion Reactions: Motion Sickness Additional Past Anesthesia/Blood Transfusion Reaction / Comment(s): HAS TMJ Past Psychological History: No Psychological Hx Reported Smoking Status: Former smoker Past Alcohol Use History: None Reported Past Drug Use History: None Reported - Past Family History Mother Family Medical History: Pulmonary Embolus Additional Family Medical History / Comment(s): Mother of a PE at the age of 63 yrs. Father Family Medical History: Hypertension, Respiratory Disorder Additional Family Medical History / Comment(s): Father is an alcoholic. He had asbestos exposure/lungs affected. General Exam Limitations: no limitations General appearance: alert, in no apparent distress Head exam: Present: atraumatic, normocephalic Eye exam: Present: normal appearance Neck exam: Present: normal inspection. Absent: meningismus Respiratory exam: Present: wheezes. Absent: respiratory distress, rales, rhonchi, stridor Cardiovascular Exam: Present: regular rate, normal rhythm, normal heart sounds. Absent: systolic murmur, diastolic murmur, rubs, gallop, clicks Extremities exam: Present: pedal edema Neurological exam: Present: alert, oriented X3 Psychiatric exam: Present: normal affect, normal mood Skin exam: Present: warm, dry Course Vital Signs 10/18/23 10/18/23 10/18/23 16:35 18:04 18:14 Temperature 97.9 F 98.6 F Pulse Rate 100 90 114 H Respiratory 18 20 20 Rate Blood Pressure 114/79 117/78 O2 Sat by Pulse 91 L 99 Oximetry 10/18/23 18:24 Temperature Pulse Rate 96 Respiratory 20 Rate Blood Pressure O2 Sat by Pulse Oximetry Medical Decision Making - Medical Decision Making Was pt. sent in by a medical professional or institution (, [facility], [facility], urgent care, hospital, or shelter...) When possible be specific @ -Sent by PCP Dr. Jewell Did you speak to anyone other than the patient for history (EMS, parent, family, police, friend...)? What history was obtained from this source @ -No Did you review nursing and triage notes (agree or disagree)? Why? @ -I reviewed and agree with nursing and triage notes Were old charts reviewed (outside hosp., previous admission, EMS record, old EKG, old radiological studies, urgent care reports/EKG's, shelter records)? Report findings @ -No old charts were reviewed Differential Diagnosis (chest pain, altered mental status, abdominal pain women, abdominal pain men, vaginal bleeding, weakness, fever, dyspnea, syncope, headache, dizziness, GI bleed, back pain, seizure, CVA, palpatations, mental health, musculoskeletal)? @ -MDM Differential Dyspnea: Coronary syndrome, arrhythmia, tamponade, asthma, COPD, pulmonary embolism, pneumonia, pneumothorax, pulmonary effusion, anaphylaxis, diabetic ketoacidosis, flailed chest, pulmonary contusion, diaphragmatic rupture, anemia, neuromuscular this is not meant to be an all-inclusive list. EKG interpreted by me (3pts min.). @ -EKG shows sinus rhythm ventricular rate 92. ME interval 153. QRS 91. QT 348. QTc 390. no ST deviation. X-rays interpreted by me (1pt min.). @ -Chest x-ray shows cardiomegaly and mild pulmonary vascular congestion. CT interpreted by me (1pt min.). @ -None done U/S interpreted by me (1pt. min.). @ -None done What testing was considered but not performed or refused? (CT, X-rays, U/S, labs)? Why? @ -None What meds were considered but not given or refused? Why? @ -None Did you discuss the management of the patient with other professionals (professionals i.e. , [facility], [facility], lab, RT, psych nurse, social group worker, assault amphibious vehicle crewman, teacher, drug abuse resistance education officer, casework specialist)? Give summary @ -I spoke with Dr. Hasikns who accepted admission Was smoking cessation discussed for >3mins.? @ -No Was critical care preformed (if so, how long)? @ -No Were there social determinants of health that impacted care today? How? (Homelessness, low income, unemployed, alcoholism, drug addiction, transportatio n, low edu. Level, literacy, decrease access to med. care, retirement, rehab)? @ -No Was there de-escalation of care discussed even if they declined (Discuss DNR or withdrawal of care, Hospice)? DNR status @ -No What co-morbidities impacted this encounter? (DM, HTN, Smoking, COPD, CAD, Cancer, CVA, ARF, Chemo, Hep., AIDS, mental health diagnosis, sleep apnea, morbid obesity)? @ -CHF, asthma Was patient admitted / discharged? Hospital course, mention meds given and route, prescriptions, significant lab abnormalities, going to OR and other pertinent info. @ -48-year-old female presenting with chief complaint of dyspnea. Sent by her PCP Dr. Jewell. On exam the patient is hypoxic and requires oxygen supplementation, she does not wear oxygen at home. She does have significant lower extremity edema. Expiratory wheezes are heard throughout the lung barrera. Patient is given Solu-Medrol and DuoNeb. She is negative for influenza, RSV, and COVID. Chest x-ray shows evidence of cardiomegaly and pulmonary vascular congestion, however the patient's BNP is 128. Given her clinical presentation she will be treated for fluid overload with Lasix 40mg. She will be admitted. Patient is agreeable this plan. I discussed this case with my attending Dr. Jennings Undiagnosed new problem with uncertain prognosis? @ -No Drug Therapy requiring intensive monitoring for toxicity (Heparin, Nitro, Ins ulin, Cardizem)? @ -No Were any procedures done? @ -No Diagnosis/symptom? @ -CHF Acute, or Chronic, or Acute on Chronic? @ -Acute on chronic Uncomplicated (without systemic symptoms) or Complicated (systemic symptoms)? @ -Complicated Side effects of treatment? @ -No Exacerbation, Progression, or Severe Exacerbation? @ -Exacerbation Poses a threat to life or bodily function? How? (Chest pain, USA, ND, pneumonia, PE, COPD, DKA, ARF, appy, cholecystitis, CVA, Diverticulitis, Homicidal, Suici vicky, threat to staff... and all critical care pts) @ -Yes - Lab Data Result diagrams: 10/18/23 17:29 10/18/23 17: Lab Results 10/18/23 10/18/23 10/18/23 Range/Units 17:29 17:29 17:29 WBC 11.6 H (3.8-10.6) k/uL RBC 4.98 (3.80-5.40) m/uL Hgb 14.4 (11.4-16.0) gm/dL Hct 47.1 H (34.0-46.0) % MCV 94.6 (80.0-100.0) fL MCH 28.9 (25.0-35.0) pg MCHC 30.5 L (31.0-37.0) g/dL RDW 14.3 (11.5-15.5) % Plt Count 253 (150-450) k/uL MPV 7.8 Neutrophils % 77 % Lymphocytes % 12 % Monocytes % 6 % Eosinophils % 3 % Basophils % 0 % Neutrophils # 8.9 H (1.3-7.7) k/uL Lymphocytes # 1.4 (1.0-4.8) k/uL Monocytes # 0.7 (0-1.0) k/uL Eosinophils # 0.4 (0-0.7) k/uL Basophils # 0.1 (0-0.2) k/uL Hypochromasia Slight PT 11.3 (10.0-12.5) sec INR 1.0 (<1.2) APTT 26.5 (22.0-30.0) sec Sodium 140 (137-145) mmol/L Potassium 3.8 (3.5-5.1) mmol/L Chloride 104 (98-107) mmol/L Carbon Dioxide 32 H (22-30) mmol/L Anion Gap 4 mmol/L BUN 15 (7-17) mg/dL Creatinine 0.58 (0.52-1.04) mg/dL Est GFR (CKD-EPI)AfAm >90 (>60 ml/min/1.73 sqM) Est GFR (CKD-EPI)NonAf >90 (>60 ml/min/1.73 sqM) Glucose 134 H (74-99) mg/dL Calcium 8.5 (8.4-10.2) mg/dL Magnesium 1.9 (1.6-2.3) mg/dL Total Bilirubin 0.6 (0.2-1.3) mg/dL AST 20 (14-36) U/L ALT 22 (4-34) U/L Alkaline Phosphatase 69 (38-126) U/L Troponin I (0.000-0.034) ng/mL NT-Pro-B Natriuret Pep 128 pg/mL Total Protein 6.6 (6.3-8.2) g/dL Albumin 3.4 L (3.5-5.0) g/dL Influenza Type A (PCR) (Not Detectd) Influenza Type B (PCR) (Not Detectd) RSV (PCR) (Not Detectd) SARS-CoV-2 (PCR) (Not Detectd) 10/18/23 10/18/23 Range/Units 17:29 17:29 WBC (3.8-10.6) k/uL RBC (3.80-5.40) m/uL Hgb (11.4-16.0) gm/dL Hct (34.0-46.0) % MCV (80.0-100.0) fL MCH (25.0-35.0) pg MCHC (31.0-37.0) g/dL RDW (11.5-15.5) % Plt Count (150-450) k/uL MPV Neutrophils % % Lymphocytes % % Monocytes % % Eosinophils % % Basophils % % Neutrophils # (1.3-7.7) k/uL Lymphocytes # (1.0-4.8) k/uL Monocytes # (0-1.0) k/uL Eosinophils # (0-0.7) k/uL Basophils # (0-0.2) k/uL Hypochromasia PT (10.0-12.5) sec INR (<1.2) APTT (22.0-30.0) sec Sodium (137-145) mmol/L Potassium (3.5-5.1) mmol/L Chloride (98-107) mmol/L Carbon Dioxide (22-30) mmol/L Anion Gap mmol/L BUN (7-17) mg/dL Creatinine (0.52-1.04) mg/dL Est GFR (CKD-EPI)AfAm (>60 ml/min/1.73 sqM) Est GFR (CKD-EPI)NonAf (>60 ml/min/1.73 sqM) Glucose (74-99) mg/dL Calcium (8.4-10.2) mg/dL Magnesium (1.6-2.3) mg/dL Total Bilirubin (0.2-1.3) mg/dL AST (14-36) U/L ALT (4-34) U/L Alkaline Phosphatase (38-126) U/L Troponin I <0.012 (0.000-0.034) ng/mL NT-Pro-B Natriuret Pep pg/mL Total Protein (6.3-8.2) g/dL Albumin (3.5-5.0) g/dL Influenza Type A (PCR) Not Detected (Not Detectd) Influenza Type B (PCR) Not Detected (Not Detectd) RSV (PCR) Not Detected (Not Detectd) SARS-CoV-2 (PCR) Not Detected (Not Detectd) Disposition Clinical Impression: Congestive heart failure Disposition: ADMITTED IP TO THIS HOSP Condition: Fair Time of Disposition: 19:22
[2023-10-18] MEDS ORDERED: IBUPROFEN 800 MG TAB PO PRN (22:36)
[2023-10-18] MEDS: MONTELUKAST 10 MG TAB PO SCH (22:56)
[2023-10-18] MEDS: cloNIDine HCL 0.1 MG TAB PO SCH (22:56)
[2023-10-19] MEDS ORDERED: SYMBICORT 160-4.5 MCG INHALER INHALATION SCH
[2023-10-19] MEDS: ALBUTEROL NEBULIZED 2.5 MG/3 ML INHALATION SCH (09:10)
[2023-10-19] MEDS: SYMBICORT 160-4.5 MCG INHALER INHALATION SCH (09:10)
[2023-10-19] MEDS: FUROSEMIDE 10 MG/ML 4 ML VIAL IV SCH (14:06)
[2023-10-19 16:57] LABS: African American GFR (CKD) >90 (>60 ml/min/1.73 sqM); Anion Gap 3 mmol/L; Blood Urea Nitrogen 17 mg/dL (7-17); Calcium 8.6 mg/dL (8.4-10.2); Carbon Dioxide 35 mmol/L (22-30); Chloride 100 mmol/L (98-107); Glucose 167 mg/dL (74-99); Non-African American GFR(CKD) >90 (>60 ml/min/1.73 sqM); Potassium 3.9 mmol/L (3.5-5.1); Sodium 138 mmol/L (137-145)
--- NOTE | 2023-10-19 17:49 | P.CRDCN ---
History of Present Illness Consult date: 10/19/23 History of present illness: HISTORY OF PRESENTING ILLNESS 48-year-old female with past medical history of hypertension, asthma, tobacco smoker, morbid obesity, prior nonischemic cardiomyopathy with EF 45%. She was seen by her PCP yesterday who recommended her to get admitted to the hospital because patient reported increased swelling in bilateral lower extremity and increased fatigue and shortness of breath. Patient reported that she takes Lasix at home but she has been having lower urine output and increased swelling in bilateral lower extremity. She also admits some chest wheezing. Labs hemoglobin 14.4, creatinine 0.5, glucose 134, BNP 128, troponin negative. ECG shows sinus rhythm, heart rate 92 bpm Last echo December 2022 EF 55%, limited study to evaluate valve function CXR shows mild pulmonary congestion REVIEW OF SYSTEMS 14 point review of system is negative except what is mentioned above in HPI. PHYSICAL EXAMINATION Vital signs reviewed. Head: Normocephalic. Eyes: Sclerae nonicteric. Neck: Brisk carotid upstroke, no jugular venous distention. Lungs: Clear to auscultation. Heart: Regular rate and rhythm, S1-S2, no S3, no murmur or rub. Abdomen: Soft nontender, positive bowel sounds. Extremities:2+ edema, intact distal pulses. Neuro: Alert, oritented, no focal deficits. Detailed neuro exam was not performed. ASSESSMENT Mild HFpEF exacerbation Bilateral lower extremity swelling and pulmonary congestion on CXR Self-reported history of polycythemia. I feel that this is most likely secondary as patient smokes and patient has high clinical suspicion of obesity hypoventilation syndrome/obstructive sleep apnea. Morbid obesity Prior Reported history of nonischemic cardiomyopathy with HFmrEF 45% PLAN Order TSH and HbA1c Continue IV Lasix 40 mg twice daily today. Give 1 dose of metolazone 2.5 mg as patient reports low urine output with lasix IV today Transition patient to p.o. Bumex 1 mg once daily tomorrow Consider Jardiance 10 mg daily on discharge. Consider 12.5 mg Aldactone at discharge For some reason she is on aspirin and metoprolol 25 mg twice daily. I will continue metoprolol, discontinue aspirin. Consider possible discharge tomorrow. I did recommend smoking cessation and obstructive sleep apnea evaluation and treatment outpatient. Jethro Eugene MD, FACC, RPVI Thank you for allowing [facility] to participate in this patient's care. Feel free to reach out in case of any followup questions. Past Medical History Past Medical History: Asthma, Blood Disorder, Heart Failure, Pneumonia, Vascular Disorder Additional Past Medical History / Comment(s): Secondary polycythemia and the patient has a sick phlebotomy in the past, TMJ, obesity, chronic but because of these involving the lower extremities History of Any Multi-Drug Resistant Organisms: None Reported Past Surgical History: Appendectomy, Cholecystectomy, Hysterectomy, Uterine Ablation Additional Past Surgical History / Comment(s): NOVASURE Past Anesthesia/Blood Transfusion Reactions: Motion Sickness Additional Past Anesthesia/Blood Transfusion Reaction / Comment(s): HAS TMJ Past Psychological History: No Psychological Hx Reported Smoking Status: Former smoker Past Alcohol Use History: None Reported Past Drug Use History: None Reported - Past Family History Mother Family Medical History: Pulmonary Embolus Additional Family Medical History / Comment(s): Mother of a PE at the age of 63 yrs. Father Family Medical History: Hypertension, Respiratory Disorder Additional Family Medical History / Comment(s): Father is an alcoholic. He had asbestos exposure/lungs affected. Medications and Allergies Home Medications Medication Instructions Recorded Confirmed Type Albuterol Sulfate [Proair Hfa] 2 puff INHALATION RT-QID PRN 10/10/18 10/18/23 History Albuterol Nebulized [Ventolin 2.5 mg INHALATION RT-QID #120 ml 01/03/20 10/18/23 Rx Nebulized] lisinopriL [Zestril] 10 mg PO DAILY@0000 05/12/20 10/18/23 History Metoprolol Tartrate [Lopressor] 25 mg PO BID@0000,1200 01/10/23 10/18/23 History Montelukast [Singulair] 10 mg PO HS@1200 01/10/23 10/18/23 History Varenicline [Chantix Continuing 1 mg PO BID@0000,1200 01/10/23 10/18/23 History Pack] Aspirin EC [Ecotrin Low Dose] 81 mg PO DAILY@0000 10/18/23 10/18/23 History Budesonide-Formot 160-4.5 Mcg 2 puff INHALATION RT-BID@0000,1200 10/18/23 10/18/23 History [Symbicort 160-4.5 Mcg Inhaler] Furosemide [Lasix] 60 mg PO BID@0000,1200 10/18/23 10/18/23 History Ibuprofen [Motrin] 800 mg PO TID PRN 10/18/23 10/18/23 History Potassium Chloride ER [K-Dur 10] 10 meq PO DAILY 10/18/23 10/18/23 History cloNIDine HCL [Catapres] 0.45 mg PO HS@1200 10/18/23 10/18/23 History Allergies Allergy/AdvReac Type Severity Reaction Status Date / Time azithromycin Allergy Rash/Hives Verified 10/18/23 16:38 codeine Allergy Dyspnea Verified 10/18/23 16:38 shellfish derived [Shellfish] Allergy Itching/Bryce Verified 10/18/23 16:38 h Physical Exam Vitals: Vital Signs Temp Pulse Pulse Resp BP BP BP 10/19/23 14:07 98.6 F 100 17 86/57 10/19/23 14:00 100 17 10/19/23 13:18 86 10/19/23 13:08 85 10/19/23 09:20 89 10/19/23 09:11 84 10/19/23 08:00 81 16 10/19/23 07:45 97.8 F 81 16 89/57 10/19/23 03:30 97.9 F 85 16 102/56 10/18/23 22:01 98.5 F 93 18 135/88 10/18/23 21:46 86 16 113/60 10/18/23 18:24 96 20 10/18/23 18:14 114 H 20 10/18/23 18:04 98.6 F 90 20 117/78 Pulse Ox 10/19/23 14:07 96 10/19/23 14:00 10/19/23 13:18 10/19/23 13:08 10/19/23 09:20 10/19/23 09:11 10/19/23 08:00 10/19/23 07:45 98 10/19/23 03:30 94 L 10/18/23 22:01 94 L 10/18/23 21:46 98 10/18/23 18:24 10/18/23 18:14 10/18/23 18:04 99 Intake and Output 10/19/23 10/19/23 10/19/23 06:59 14:59 22:59 Intake Total 236 Balance 236 Intake: Oral 236 Other: # Voids 2 2 Results 10/18/23 17:29 10/19/23 16:08 Cardiac Enzymes 10/18/23 10/18/23 Range/Units 17:29 17:29 AST 20 (14-36) U/L Troponin I <0.012 (0.000-0.034) ng/mL Coagulation 10/18/23 Range/Units 17:29 PT 11.3 (10.0-12.5) sec APTT 26.5 (22.0-30.0) sec Comprehensive Metabolic Panel 10/18/23 10/19/23 Range/Units 17:29 16:08 Sodium 140 138 (137-145) mmol/L Potassium 3.8 3.9 (3.5-5.1) mmol/L Chloride 104 100 (98-107) mmol/L Carbon Dioxide 32 H 35 H (22-30) mmol/L BUN 15 17 (7-17) mg/dL Creatinine 0.58 0.65 (0.52-1.04) mg/dL Glucose 134 H 167 H (74-99) mg/dL Calcium 8.5 8.6 (8.4-10.2) mg/dL AST 20 (14-36) U/L ALT 22 (4-34) U/L Alkaline Phosphatase 69 (38-126) U/L Total Protein 6.6 (6.3-8.2) g/dL Albumin 3.4 L (3.5-5.0) g/dL Current Medications Generic Name Dose Route Start Last Admin Trade Name Freq PRN Reason Stop Dose Admin Albuterol Sulfate 2.5 mg 10/19/23 08:00 10/19/23 15:39 Albuterol Nebulized 2.5 Mg/3 Ml INHALATION Not Given RT-QID QI Albuterol Sulfate 2 mg 10/18/23 22:36 Albuterol Nebulized 2.5 Mg/3 Ml INHALATION RT-QID PRN Shortness Of Breath Albuterol/Ipratropium 3 ml 10/18/23 19:22 Ipratropium-Albuterol 3 Ml Neb INHALATION RT-Q2H PRN Shortness Of Breath Or Wheezing Budesonide/Formoterol Fumarate 2 puff 10/19/23 08:00 10/19/23 09:10 Symbicort 160-4.5 Mcg Inhaler INHALATION 2 puff RT-BID QI Administration Clonidine 0.45 mg 10/18/23 22:45 10/18/23 22:56 Clonidine Hcl 0.1 Mg Tab PO 0.45 mg HS@2100 QI Administration Dapagliflozin 5 mg 10/20/23 09:00 Dapagliflozin Propanediol 5 Mg Tablet PO DAILY QI Furosemide 40 mg 10/19/23 13:15 10/19/23 14:06 Furosemide 10 Mg/Ml 4 Ml Vial IV 40 mg Q12HR QI Administration Ibuprofen 800 mg 10/18/23 22:36 Ibuprofen 800 Mg Tab PO TID PRN Pain Lisinopril 10 mg 10/20/23 00:00 Lisinopril 10 Mg Tab PO DAILY@0000 QI Metolazone 5 mg 10/19/23 20:00 Metolazone 5 Mg Tab PO 10/19/23 20:01 DAILY [facility] Metoprolol Tartrate 25 mg 10/20/23 00:00 Metoprolol Tartrate 25 Mg Tab PO BID@0000,1200 [facility] Montelukast Sodium 10 mg 10/18/23 22:36 10/18/23 22:56 Montelukast 10 Mg Tab PO 10 mg HS@2100 QI Administration Naloxone HCl 0.2 mg 10/18/23 19:20 Naloxone 0.4 Mg/Ml 1 Ml Vial IV Q2M PRN Opioid Reversal Potassium Chloride 10 meq 10/20/23 09:00 Potassium Chloride Er 10 Meq Tab.Er.Prt PO DAILY QI Intake and Output 10/19/23 10/19/23 10/19/23 06:59 14:59 22:59 Intake Total 236 Balance 236 Intake: Oral 236 Other: # Voids 2 2 10/18/23 17:29 10/19/23 16:08
--- NOTE | 2023-10-19 18:13 | P.HPIM ---
History of Present Illness H&P Date: 10/19/23 Chief Complaint: Shortness of breath 48-year-old female, history of hypertension, asthma, CHF, presenting with chief complaint of shortness of breath. Patient was seen by her PCP Dr. Jewell today and he advised her to report to the ER for treatment of CHF exacerbation. Deng stinson has history of CHF and asthma. She states that she has been taking her Lasix at home, however she has still had increasing lower extremity edema. She also admits to chest tightness and wheezing. No chest pain. No nausea, vomiting, abdominal pain. No fever, cough, congestion, sore throat. Labs hemoglobin 14.4, creatinine 0.5, glucose 134, BNP 128, troponin negative. ECG shows sinus rhythm, heart rate 92 bpm Last echo December 2022 EF 55%, limited study to evaluate valve function CXR shows mild pulmonary congestion Review of Systems REVIEW OF SYSTEMS: CONSTITUTIONAL: No fever, no malaise, no fatigue. HEENT: No recent visual problems or hearing problems. Denied any sore throat. CARDIOVASCULAR: No chest pain, orthopnea, PND, no palpitations, no syncope. PULMONARY: No shortness of breath, no cough, no hemoptysis. GASTROINTESTINAL: No diarrhea, no nausea, no vomiting, no abdominal pain. NEUROLOGICAL: No headaches, no weakness, no numbness. HEMATOLOGICAL: Denies any bleeding or petechiae. GENITOURINARY: Denies any burning micturition, frequency, or urgency. MUSCULOSKELETAL/RHEUMATOLOGICAL: Denies any joint pain, swelling, or any muscle pain. ENDOCRINE: Denies any polyuria or polydipsia. The rest of the 14-point review of systems is negative. Past Medical History Past Medical History: Asthma, Blood Disorder, Heart Failure, Pneumonia, Vascular Disorder Additional Past Medical History / Comment(s): Secondary polycythemia and the patient has a sick phlebotomy in the past, TMJ, obesity, chronic but because of these involving the lower extremities History of Any Multi-Drug Resistant Organisms: None Reported Past Surgical History: Appendectomy, Cholecystectomy, Hysterectomy, Uterine Ablation Additional Past Surgical History / Comment(s): NOVASURE Past Anesthesia/Blood Transfusion Reactions: Motion Sickness Additional Past Anesthesia/Blood Transfusion Reaction / Comment(s): HAS TMJ Past Psychological History: No Psychological Hx Reported Smoking Status: Former smoker Past Alcohol Use History: None Reported Past Drug Use History: None Reported - Past Family History Mother Family Medical History: Pulmonary Embolus Additional Family Medical History / Comment(s): Mother of a PE at the age of 63 yrs. Father Family Medical History: Hypertension, Respiratory Disorder Additional Family Medical History / Comment(s): Father is an alcoholic. He had asbestos exposure/lungs affected. Medications and Allergies Home Medications Medication Instructions Recorded Confirmed Type Albuterol Sulfate [Proair Hfa] 2 puff INHALATION RT-QID PRN 10/10/18 10/18/23 History Albuterol Nebulized [Ventolin 2.5 mg INHALATION RT-QID #120 ml 01/03/20 10/18/23 Rx Nebulized] lisinopriL [Zestril] 10 mg PO DAILY@0000 05/12/20 10/18/23 History Metoprolol Tartrate [Lopressor] 25 mg PO BID@0000,1200 01/10/23 10/18/23 History Montelukast [Singulair] 10 mg PO HS@1200 01/10/23 10/18/23 History Varenicline [Chantix Continuing 1 mg PO BID@0000,1200 01/10/23 10/18/23 History Pack] Aspirin EC [Ecotrin Low Dose] 81 mg PO DAILY@0000 10/18/23 10/18/23 History Budesonide-Formot 160-4.5 Mcg 2 puff INHALATION RT-BID@0000,1200 10/18/23 10/18/23 History [Symbicort 160-4.5 Mcg Inhaler] Furosemide [Lasix] 60 mg PO BID@0000,1200 10/18/23 10/18/23 History Ibuprofen [Motrin] 800 mg PO TID PRN 10/18/23 10/18/23 History Potassium Chloride ER [K-Dur 10] 10 meq PO DAILY 10/18/23 10/18/23 History cloNIDine HCL [Catapres] 0.45 mg PO HS@1200 10/18/23 10/18/23 History Bumetanide [Bumex] 1 mg PO DAILY 90 Days tablet 10/19/23 Rx Empagliflozin [Jardiance] 10 mg PO DAILY 90 Days tablet 10/19/23 Rx Spironolactone [Aldactone] 12.5 mg PO DAILY 90 Days tablet 10/19/23 Rx Allergies Allergy/AdvReac Type Severity Reaction Status Date / Time azithromycin Allergy Rash/Hives Verified 10/18/23 16:38 codeine Allergy Dyspnea Verified 10/18/23 16:38 shellfish derived [Shellfish] Allergy Itching/Bryce Verified 10/18/23 16:38 h Physical Exam Vitals: Vital Signs Temp Pulse Pulse Resp BP BP BP 10/19/23 09:20 89 10/19/23 09:11 84 10/19/23 08:00 81 16 10/19/23 07:45 97.8 F 81 16 89/57 10/19/23 03:30 97.9 F 85 16 102/56 10/18/23 22:01 98.5 F 93 18 135/88 10/18/23 21:46 86 16 113/60 10/18/23 18:24 96 20 10/18/23 18:14 114 H 20 10/18/23 18:04 98.6 F 90 20 117/78 10/18/23 16:35 97.9 F 100 18 114/79 Pulse Ox 10/19/23 09:20 10/19/23 09:11 10/19/23 08:00 10/19/23 07:45 98 10/19/23 03:30 94 L 10/18/23 22:01 94 L 10/18/23 21:46 98 10/18/23 18:24 10/18/23 18:14 10/18/23 18:04 99 10/18/23 16:35 91 L Intake and Output 10/18/23 10/19/23 10/19/23 22:59 06:59 14:59 Intake Total 118 Balance 118 Intake: Oral 118 Other: # Voids 1 2 Weight 138.799 kg General appearance: alert, in no apparent distress Head exam: Present: atraumatic, normocephalic Eye exam: Present: normal appearance Neck exam: Present: normal inspection. Absent: meningismus Respiratory exam: Present: wheezes. Absent: respiratory distress, rales, rhonchi, stridor Cardiovascular Exam: Present: regular rate, normal rhythm, normal heart sounds. Absent: systolic murmur, diastolic murmur, rubs, gallop, clicks Extremities exam: Present: pedal edema Neurological exam: Present: alert, oriented X3 Psychiatric exam: Present: normal affect, normal mood Skin exam: Present: warm, dry Results CBC & Chem 7: 10/18/23 17:29 10/19/23 16:08 Labs: Abnormal Lab Results - Last 24 Hours (Table) 10/18/23 10/18/23 Range/Units 17:29 17:29 WBC 11.6 H (3.8-10.6) k/uL Hct 47.1 H (34.0-46.0) % MCHC 30.5 L (31.0-37.0) g/dL Neutrophils # 8.9 H (1.3-7.7) k/uL Carbon Dioxide 32 H (22-30) mmol/L Glucose 134 H (74-99) mg/dL Albumin 3.4 L (3.5-5.0) g/dL Assessment and Plan Assessment: 1. Acute exacerbation CHF -- Patient has been placed on Lasix 40 mg IV every 12 hours; will monitor strict LUCI's, daily weights, low-salt and fluid restricted diet -- Recommend 2D echo -Cardiology is consulted 2. Hypertension; metoprolol 25 mg twice daily; clonidine 0.45 mg nightly; Zestril 10 mg daily 3. Asthma; not in exacerbation; continue with home dose of Singulair 10 mg daily, Symbicort inhaler 160-4.5 mcg 2 puffs twice daily; Ventolin inhalers 2 puffs 4 times daily as needed 4. Questionable history of polycythemia; per patient history 5. Morbid obesity; counseling done on need for weight reduction DVT prophylaxis; SCDs CODE STATUS; full code
[2023-10-19] MEDS: POTASSIUM CHLORIDE ER 10 MEQ TAB.ER.PRT PO SCH (19:45)
[2023-10-19] MEDS: metOLazone 5 MG TAB PO SCH (20:08)
[2023-10-19] MEDS: ALBUTEROL NEBULIZED 2.5 MG/3 ML INHALATION PRN (23:11)
[2023-10-19] MEDS ORDERED: SIMETHICONE 80 MG CHEWABLE PO PRN (23:19)
[2023-10-20] MEDS ORDERED: ASPIRIN 81 MG PO SCH
[2023-10-20] MEDS: lisinopriL 10 MG TAB PO SCH (00:38)
[2023-10-20] MEDS: METOPROLOL TARTRATE 25 MG TAB PO SCH (00:39)
[2023-10-20 07:46] VITALS: BP 106/75; TEMP 97.8
[2023-10-20] MEDS: DAPAGLIFLOZIN PROPANEDIOL 5 MG TABLET PO SCH (08:31)
[2023-10-20] MEDS: SPIRONOLACTONE 25 MG TAB PO SCH (08:32)
[2023-10-20 08:58] VITALS: RESP 18
[2023-10-20] MEDS ORDERED: POTASSIUM CHLORIDE ER 10 MEQ TAB.ER.PRT PO SCH (09:00)
[2023-10-20 09:23] LABS: Basophils # (A) 0.04 X 10*3/uL (0.00-0.10); Basophils % (A) 0.3 %; Eosinophils % (A) 0.6 %; HCT 46.3 % (37.2-46.3); HGB 13.9 g/dL (12.0-15.0); Lymphocytes # (A) 2.38 X 10*3/uL (0.90-5.00); Lymphocytes % (A) 15.3 %; MCH 28.3 pg (27.0-32.0); MCV 94.3 FL (80.0-97.0); Monocytes # (A) 1.18 X 10*3/uL (0.20-1.00); Monocytes % (A) 7.6 %; NRBC Per 100 WBC 0 X 10*3/uL (0.00-0.01); Neutrophils # (A) 11.76 X 10*3/uL (1.80-7.70); Neutrophils % (A) 75.7 %; Platelet Count 317 X 10*3/uL (140-440); RBC 4.91 X 10*6/uL (4.10-5.20); RDW 14.3 % (11.5-14.5); WBC 15.53 X 10*3/uL (4.50-10.00)
[2023-10-20] MEDS: BUMETANIDE 1 MG TAB PO SCH (09:25)
[2023-10-20 09:52] LABS: BUN/Creat Ratio 26.17 Ratio (12.00-20.00); Blood Urea Nitrogen 15.7 mg/dL (9.0-27.0); Calcium 8.8 mg/dL (8.7-10.3); Carbon Dioxide 35.2 mmol/L (21.6-31.8); Chloride 98 mmol/L (96-109); Glucose 107 mg/dL (70-110); Potassium 4.2 mmol/L (3.5-5.5); Sodium 142 mmol/L (135-145)
[2023-10-20 10:44] VITALS: PULSE 85
--- NOTE | 2023-10-20 11:15 | P.PN ---
Subjective Progress Note Date: 10/20/23 Progress note October 20, 2023 Patient was given IV Lasix along with metolazone yesterday . Patient reported that she did not make more than usual amount of urine. She reported that she still has lower extremity swelling. I feel that intra vascularly she is euvolemic but she does have subcutaneous edema in bilateral lower extremity and sacral area. This would improve with ambulation and slow diuresis. I will transition her to p.o. diuretics and would intensify her diuretic therapy by changing Lasix to Bumex at the time of discharge. I am also adding Jardiance and Aldactone to her therapy. HISTORY OF PRESENTING ILLNESS 48-year-old female with past medical history of hypertension, asthma, tobacco smoker, morbid obesity, prior nonischemic cardiomyopathy with EF 45%. She was seen by her PCP yesterday who recommended her to get admitted to the hospital because patient reported increased swelling in bilateral lower extremity and increased fatigue and shortness of breath. Patient reported that she takes Lasix at home but she has been having lower urine output and increased swelling in bilateral lower extremity. She also admits some chest wheezing. Labs hemoglobin 14.4, creatinine 0.5, glucose 134, BNP 128, troponin negative. ECG shows sinus rhythm, heart rate 92 bpm Last echo December 2022 EF 55%, limited study to evaluate valve function CXR shows mild pulmonary congestion REVIEW OF SYSTEMS 14 point review of system is negative except what is mentioned above in HPI. PHYSICAL EXAMINATION Vital signs reviewed. Head: Normocephalic. Eyes: Sclerae nonicteric. Neck: Brisk carotid upstroke, no jugular venous distention. Lungs: Clear to auscultation. Heart: Regular rate and rhythm, S1-S2, no S3, no murmur or rub. Abdomen: Soft nontender, positive bowel sounds. Extremities:2+ edema, intact distal pulses. Neuro: Alert, oritented, no focal deficits. Detailed neuro exam was not perfo rmed. ASSESSMENT Mild HFpEF exacerbation Bilateral lower extremity swelling and pulmonary congestion on CXR Self-reported history of polycythemia. I feel that this is most likely secondary as patient smokes and patient has high clinical suspicion of obesity hypoventilation syndrome/obstructive sleep apnea. Morbid obesity Prior Reported history of nonischemic cardiomyopathy with HFmrEF 45% PLAN Discontinue IV Lasix. Start Bumex 1 mg p.o. daily Start Farxiga 10 mg daily, Aldactone 12.5 mg daily For some reason she is on aspirin and metoprolol 25 mg twice daily. I will continue metoprolol, discontinue aspirin. I have educated patient about compression stockings, leg elevation, low-salt intake, restrict water intake, daily weighing Outpatient follow-up recommended with cardiology. Patient has had a prior heart catheterization which was reported to be negative. No ischemic signs symptoms at this time. Patient is cleared from cardiovascular standpoint to be discharged Objective - Vital Signs Vital signs: Vital Signs Temp 97.8 F 10/20/23 07:00 Pulse 90 10/20/23 09:04 Resp 18 10/20/23 09:04 BP 106/75 10/20/23 07:00 Pulse Ox 92 L 10/20/23 08:52 FiO2 Intake & Output 10/19/23 10/20/23 10/20/23 18:59 06:59 18:59 Intake Total 236 420 Balance 236 420 Intake: Oral 236 420 Other: # Voids 2 2 - Labs CBC & Chem 7: 10/20/23 06:41 10/20/23 06:41 Labs: Abnormal Lab Results - Last 24 Hours (Table) 10/19/23 10/20/23 10/20/23 Range/Units 16:08 06:41 06:41 WBC 15.53 H (4.50-10.00) X 10*3/uL MCHC 30.0 L (32.0-37.0) g/dL Immature Gran # 0.07 H (0.00-0.04) X 10*3/uL Neutrophils # 11.76 H (1.80-7.70) X 10*3/uL Monocytes # 1.18 H (0.20-1.00) X 10*3/uL Carbon Dioxide 35 H (22-30) mmol/L BUN/Creatinine Ratio (12.00-20.00) Ratio Glucose 167 H (74-99) mg/dL Hemoglobin A1c 6.4 H (<=6.0) % 10/20/23 Range/Units 06:41 WBC (4.50-10.00) X 10*3/uL MCHC (32.0-37.0) g/dL Immature Gran # (0.00-0.04) X 10*3/uL Neutrophils # (1.80-7.70) X 10*3/uL Monocytes # (0.20-1.00) X 10*3/uL Carbon Dioxide 35.2 H (22-30) mmol/L BUN/Creatinine Ratio 26.17 H (12.00-20.00) Ratio Glucose (74-99) mg/dL Hemoglobin A1c (<=6.0) %
--- NOTE | 2023-10-20 13:46 | XR ---
EXAMINATION TYPE: XR abdomen 2V DATE OF EXAM: 10/20/2023 COMPARISON: None INDICATION: Constipation TECHNIQUE: Abdomen is examined in supine and upright views. FINDINGS: There is a normal bowel gas pattern. No free air is evident. No differential air-fluid levels are tio dent. Psoas margins are normal. No organomegaly is present. No suspicious calcifications. IMPRESSION: 1. Unremarkable Abdomen
[2023-10-20] MEDS: polyethylene glycoL 3350 17 GM POWD.PACK PO SCH (13:59)
== END 2023-10-20 14:49 | disposition home or self-care (01) ==
LOC: EC 16:32 → 6NMEDSUR 18:20
PROVIDERS: ADMIT Internal Medicine; ATTEND Internal Medicine
DX: I11.0 Hypertensive heart disease with heart failure (principal); I50.43 Acute on chronic combined systolic (congestive) and diastolic (congestive) heart failure; I42.8 Other cardiomyopathies; J45.909 Unspecified asthma, uncomplicated; E66.01 Morbid (severe) obesity due to excess calories; Z68.43 Body mass index [BMI] 50.0-59.9, adult; Z11.52 Encounter for screening for COVID-19; Z11.59 Encounter for screening for other viral diseases; Z79.51 Long term (current) use of inhaled steroids; Z79.82 Long term (current) use of aspirin; Z79.899 Other long term (current) drug therapy; Z88.1 Allergy status to other antibiotic agents; Z88.5 Allergy status to narcotic agent; Z91.013 Allergy to seafood; Z71.3 Dietary counseling and surveillance; F17.200 Nicotine dependence, unspecified, uncomplicated
CPT/HCPCS: 96376; 96374; 96375; 99285; 36415; 94640 ×5; 94760; 93005; 83880; 80053; 80048 ×2; 84443; 83735; 84484; 85025 ×2; 85610; 85730; 83036; 87636; 71046; 74019; G0378 ×3; J1940 ×2; J2930